=== PATIENT | female | born 1990 ===

== ENCOUNTER 2020-06-19 14:12 | Emergency (ER) | payer MEDICAID, SELFPAY ==
[2020-06-19 14:21] VITALS: BP 127/84; PULSE 83; RESP 16; TEMP 36.6; O2SAT 96; BMI 29.2
[2020-06-19 16:56] LABS: Glucose Urine UA NEG (NEG); Leukocyte Esterase Urine 2+ (NEG); Nitrite Urine POS (NEG); PH 6.5 (5.0-8.0); Specific Gravity - Urine >= 1.030 (1.005-1.025); UACC Culture Trigger YES; Urine Blood 3+ (NEG); Urine Ketones 5 MG/DL (NEG); Urine Protein 2+ MG/DL (NEG-TRACE)
[2020-06-19 16:57] VITALS: BP 105/70; PULSE 72; RESP 17; TEMP 36.4; O2SAT 99
[2020-06-19 16:57] LABS: Appearance Urine CLOUDY; Color Urine BROWN
--- NOTE | 2020-06-19 17:00 | ED.GENADULT ---
HPI - General Adult General Chief complaint: Abdominal Pain Stated complaint: bladder pain Time Seen by Provider: 06/19/20 16:56 Source: patient Mode of arrival: ambulatory Limitations: no limitations History of Present Illness HPI narrative: Patient comes emergency room complaining of dysuria. Patient states every time she urinates, it kincaid. Patient denies fever, no flank pain, the pain is a burning sensation, nonradiating. Patient denies vomiting or diarrhea. Patient states she has had UTIs in the past and feels very similar. Patient states she is not sure if she has hematuria, however patient is on her menstrual period. MD complaint: Dysuria Related Data Previous Rx's Medication Instructions Recorded nitrofurantoin monohyd/m-cryst 100 mg PO BID #14 cap 06/19/20 [Macrobid] phenazopyridine 100 mg PO TID 5 Days #15 tab 06/19/20 Allergies Allergy/AdvReac Type Severity Reaction Status Date / Time No Known Allergies Allergy Unverified 01/25/20 16:25 Review of Systems Review of Systems: Constitutional : No Weight loss, No Fever, No Chills, No Night Sweats, No Fatigue, No Malaise ENT/Mouth : No Hearing loss, No Ear Pain, No Nasal Congestion, No Sinus Pain, No Hoarseness, No sore throat, No Rhinorrhea, No Swallowing Difficulty Eyes: No Eye Pain, No Swelling, No Redness, No Foreign Body, No Discharge, No Vision Changes Cardiovascular : No Chest Pain, No SOB, No Dyspnea on Exertion, No Orthopnea, No Edema, No Palpitations Respiratory : No Cough, No Sputum, No Wheezing, No Smoke Exposure, No Dyspnea Gastrointestinal : No Nausea, No Vomiting, No Diarrhea, No Constipation, No abdominal Pain, No Hematochezia, No Melena Genitourinary : Currently menstruating, complaining of dysuria, unknown hematuria Musculoskeletal : No joint pain, No Myalgias, No Joint Swelling Skin : No Skin Lesions, No rash Neuro : No Weakness, No Numbness, No Paresthesias, No Loss of Consciousness, No Dizziness, No Headache Psych : No Anxiety/Panic, No Depression, No SI/HI/AH/VH, No Social Issues, Heme/Lymph: No Bruising, No Bleeding,No Lymphadenopathy Endocrine : No Polyuria, No Polydipsia, No Temperature Intolerance [facility] Past Medical History Medical History No known health problems Social History Social History Alcohol intake: never Smoking Status: Never smoker Use of substances other than those prescribed or required for medical reasons: No Advance Directives: No Advance Directives Information Provided: Yes Physical Exam Vital Signs: Vital Signs: Last Vital Signs Temp 97.6 F 06/19/20 16:57 Pulse 72 06/19/20 16:57 Resp 17 06/19/20 16:57 BP 105/70 06/19/20 16:57 Pulse Ox 99 06/19/20 16:57 Body Mass Index 29.2 Appearance: Alert. Oriented X3. No acute distress. Eyes: Pupils equal, round and reactive to light. ENT: Pharynx normal. Neck: Normal inspection. Neck supple. No lymph nodes noted. No crepitus CVS: Normal heart rate and rhythm. Pulses normal. Normal S1 and S2 Respiratory: No respiratory distress. Breath sounds normal. No Wheezing. No rales Abdomen: Soft and nontender. No rigidity. No distention. good BS x4 Skin: Skin warm and dry. Normal skin color. Normal skin turgor. Extremities: No lower extremity edema. No lower extremity edema. No Lacerations. No Rash Neuro: Oriented X 3. No motor deficit. No sensory deficit. Moving all extermities. No slurred speech. Course Course Course Narrative: Patient has a UTI, patient states she has no allergies to antibiotics. sepsis is not suspected. Medical Decision Making Lab Data Labs: Lab Results 06/19/20 Range/Units 16:43 Urine Color BROWN Urine Appearance CLOUDY Urine pH 6.5 (5.0-8.0) Ur Specific [place] >= 1.030 H (1.005-1.025) Urine Protein 2+ H (NEG-TRACE) MG/DL Urine Glucose (UA) NEG (NEG) MG/DL Urine Ketones 5 (NEG) MG/DL Urine Blood 3+ H (NEG) Urine Nitrite POS H (NEG) Ur Leukocyte Esterase 2+ H (NEG) Urine RBC 76-150 H (0) /HPF Urine WBC 15-29 H (0-4) /HPF Ur Squamous Epith Cells 1+ /LPF Urine Bacteria 2+ /LPF Discharge Plan Discharge Clinical Impression: UTI (urinary tract infection) Qualifiers: Urinary tract infection type: site unspecified Hematuria presence: without hematuria Qualified Code(s): N39.0 - Urinary tract infection, site not specified Patient Disposition: Home, Self-Care Instructions: Urinary Tract Infection in Women (ED) Additional Instructions: Please follow-up with your primary care physician tomorrow. If you have any worsening or new symptoms, please return to the emergency room or call 911 Prescriptions: New nitrofurantoin monohyd/m-cryst [Macrobid] 100 mg capsule 100 mg PO BID Qty: 14 RF: 0 phenazopyridine 100 mg tablet 100 mg PO TID 5 Days Qty: 15 RF: 0
[2020-06-19 17:03] LABS: Bacteria Urine 2+ /LPF; Squamous Epithelial Cell Urine 1+ /LPF
--- NOTE | 2020-06-19 17:16 | PC.NURSE ---
patient a&ox3, urine obtained, vss, will continue to monitor.
[2020-06-19 17:59] LABS: UPreg QC Valid YES; Urine Pregnancy NEGATIVE (NEGATIVE)
== END 2020-06-19 17:39 | disposition home or self-care (01) ==
PROVIDERS: Emergency Provider Emergency Medicine
DX: N39.0 Urinary tract infection, site not specified (principal); Z87.440 Personal history of urinary (tract) infections
CPT/HCPCS: 81001; 81003; 81025; 87086; 87088; 87186; 99283; 99284

== ENCOUNTER 2020-09-26 17:09 | Emergency (ER) | payer MEDICAID, SELFPAY ==
[2020-09-26 17:16] VITALS: BP 119/79; PULSE 88; RESP 18; TEMP 36.9; O2SAT 97; BMI 29.9
[2020-09-26 18:14] LABS: Glucose Urine UA NEG (NEG); Leukocyte Esterase Urine 2+ (NEG); Nitrite Urine NEG (NEG); Specific Gravity - Urine >= 1.030 (1.005-1.025); UACC Culture Trigger YES; Urine Blood 1+ (NEG); Urine Ketones NEG (NEG); Urine Protein NEG (NEG-TRACE)
[2020-09-26 18:15] LABS: Appearance Urine HAZY; Color Urine YELLOW
[2020-09-26 18:22] LABS: Bacteria Urine 1+ /LPF; RBC Urine 0-2 /HPF (0); Squamous Epithelial Cell Urine 2+ /LPF
--- NOTE | 2020-09-26 19:15 | ED_ITS ---
HPI - Female Genitourinary General Chief complaint: Urogenital-Female Stated complaint: ?UTI Time Seen by Provider: 09/26/20 18:55 Source: patient Mode of arrival: ambulatory Limitations: no limitations History of Present Illness HPI Narrative: 29-year-old female here with dysuria, frequency x4 days. No fevers, chills, nausea, vomiting, vaginal discharge Related Data Previous Rx's Medication Instructions Recorded nitrofurantoin monohyd/m-cryst 100 mg PO BID #14 cap 06/19/20 [Macrobid] phenazopyridine 100 mg PO TID 5 Days #15 tab 06/19/20 nitrofurantoin monohyd/m-cryst 100 mg PO Q12H 7 Days #14 cap 09/26/20 [Macrobid] phenazopyridine [Pyridium] 200 mg PO TID PRN #6 tab 09/26/20 Allergies Allergy/AdvReac Type Severity Reaction Status Date / Time No Known Allergies Allergy Unverified 01/25/20 16:25 Review of Systems Review of Systems: Yes all other systems are reviewed and are negative Constitutional: Constitutional: Reports no additional constitutional complaints, Denies body ache(s), Denies chills, Denies fever(s), Denies headache(s) and Denies weakness Eyes: Eyes: Reports no additional eye complaints and Denies change in vision ENT: Reports system reviewed and no additional complaints, except as documented, Denies dizziness, Denies headache(s), Denies nasal congestion, Denies nasal discharge and Denies neck pain Cardiovascular: Cardiovascular: Reports no additional cardiovascular complaints, Denies chest pain, Denies leg edema and Denies dyspnea Respiratory: Respiratory: Reports no additional respiratory complaints, Denies cough and Denies dyspnea Gastrointestinal: Gastrointestinal: Reports no additional gastrointestinal complaints, Denies abdominal pain, Denies diarrhea, Denies nausea and Denies vomiting Genitourinary: Genitourinary: Reports no additional female genitourinary complaints, Reports dysuria, Denies flank pain, Denies urinary incontinence, Denies urinary hesitancy, Reports urinary urgency and Denies vaginal discharge Musculoskeletal: Musculoskeletal: Reports no additional musculoskeletal complaints, Denies back pain, Denies arthralgias, Denies joint swelling, Denies neck pain, Denies numbness and Denies tingling Integumentary/Breasts: Skin/Breast: Reports system reviewed and no additional complaints, except as docu and Denies rash Neurologic: Reports system reviewed and no additional complaints, except as documented, Denies Abnormal speech present, Denies dizziness, Denies headache(s), Denies numbness, Denies tingling and Denies weakness PMFSH Past Medical History Attestation statement: The following information was validated with the patient. Source: old records reviewed and nursing notes reviewed Medical History No known health problems Social History Social History Alcohol intake: never Smoking Status: Never smoker Advance Directives: No Advance Directives Information Provided: No Patient : No Physical Exam Vital Signs: Vital Signs: Last Vital Signs Temp 98.4 F 09/26/20 17:16 Pulse 88 09/26/20 17:16 Resp 18 09/26/20 17:16 BP 119/79 09/26/20 17:16 Pulse Ox 97 09/26/20 17:16 Body Mass Index 29.9 Const: General: cooperative, healthy appearing, comfortable and no acute distress Orientation/consciousness: patient oriented x3 Limitations: no limitations HENMT: Head: Yes normal to inspection Ears: hearing grossly normal bilaterally General nose exam: Normal external nose present Face and sinus: Yes normal facial exam Mouth: Normal oral and palatal mucosa present Throat: Yes posterior oropharynx normal Eyes: General: appearance normal, both eyes and all related structures Pup ils: Equal, round and reactive pupils present Neck: Neck: Yes normal visual inspection Chest: Chest palpation & inspection: normal inspection of the chest Resp: Effort & Inspection: normal respiratory effort Auscultation: clear to auscultation bilaterally Cardio: Rate: regular rate Rhythm: regular rhythm Peripheral pulses: Peripheral pulses 2+ throughout GI: Inspection: Yes normal to inspection Palpation (GI): Soft to palpation and nontender Auscultation: normal bowel sounds : General: Yes no CVA tenderness Back/Spine/Pelvis: Back: no CVA tenderness Thoracic/Lumbar Spine: thoracic and lumbar spine normal to inspection Skin: General skin exam: no rashes or lesions noted Neuro: General: patient oriented x3, no focal motor deficits and normal sensation to monofilament Cranial nerves: Yes Equal, round and reactive pupils present Cognition (Neuro): normal cognition Speech: No Abnormal speech present Gait exam (Neuro): Normal gait present Motor exam (neuro): 5/5 motor strength present throughout Extrem: General: Yes normal to inspection Course Course Course Narrative: 29-year-old female here with frequency, urgency, dysuria times several days. UA is consistent with UTI. Will treat with course of antibiotics. Reviewed worrisome signs and symptoms of when to return to the emergency department. Comfortable with discharge home. MDM - Female Genitourinary Lab Data Labs: Lab Results 09/26/20 Range/Units 17:59 Urine Color YELLOW Urine Appearance HAZY Urine pH 6.0 (5.0-8.0) Ur Specific [place] >= 1.030 H (1.005-1.025) Urine Protein NEG (NEG-TRACE) MG/DL Urine Glucose (UA) NEG (NEG) MG/DL Urine Ketones NEG (NEG) MG/DL Urine Blood 1+ H (NEG) Urine Nitrite NEG (NEG) Ur Leukocyte Esterase 2+ H (NEG) Urine RBC 0-2 (0) /HPF Urine WBC 1-4 (0-4) /HPF Ur Squamous Epith Cells 2+ /LPF Urine Bacteria 1+ /LPF Discharge Plan Discharge Clinical Impression: Urinary tract infection Patient Disposition: Home, Self-Care Instructions: Urinary Tract Infection in Women (ED) Prescriptions: New nitrofurantoin monohyd/m-cryst [Macrobid] 100 mg capsule 100 mg PO Q12H 7 Days Qty: 14 RF: 0 phenazopyridine [Pyridium] 200 mg tablet 200 mg PO TID PRN (Reason: pain) Qty: 6 RF: 0 No Action nitrofurantoin monohyd/m-cryst [Macrobid] 100 mg capsule 100 mg PO BID Qty: 14 RF: 0 phenazopyridine 100 mg tablet 100 mg PO TID 5 Days Qty: 15 RF: 0 Referrals: Physician,Unknown [Primary Care Provider] - 2 days Interventions: ED Discharge Assessment Last Done: 09/26/20 19:08 Discharge Date/Time: 09/26/20 19:09
== END 2020-09-26 19:09 | disposition home or self-care (01) ==
PROVIDERS: Emergency Provider Emergency Medicine Emergency Medical Services
DX: N39.0 Urinary tract infection, site not specified (principal)
CPT/HCPCS: 81001; 81003; 87086; 87088; 87147; 87186; 99283

== ENCOUNTER 2020-12-22 11:49 | Emergency (ER) | payer MEDICAID, SELFPAY ==
--- NOTE | ~2020-12-22 | XR_ITS ---
EXAMINATION: XR CHEST CLINICAL INFORMATION: Covid Positive and cough COMPARISON: None TECHNIQUE: Frontal view of the chest was obtained. FINDINGS: No significant abnormality is noted involving the heart, lungs, mediastinum, bony thorax or soft tissues. XR/XR chest 1V IMPRESSION: Unremarkable chest examination.
[2020-12-22 12:04] VITALS: BP 117/80; PULSE 84; RESP 20; TEMP 37.3; O2SAT 99; BMI 30.1
[2020-12-22 12:21] LABS: COVID-19 Test Positive (Negative)
--- NOTE | 2020-12-22 14:17 | ED_ITS ---
HPI - URI/Sore Throat General Chief Complaint: Upper Respiratory Symptoms Stated Complaint: back pain chest pain Time Seen by Provider: 12/22/20 13:30 Source: patient Mode of arrival: ambulatory History of Present Illness HPI Narrative: 30-year-old female with no significant past medical history presenting presenting to the ED complaining of productive cough, myalgias, headache x2 days. Denies fever, chills, CP/SOB, recent travel, sick contacts, COVID-19 exposure MD elicited complaint: cough Related Data Previous Rx's Medication Instructions Recorded nitrofurantoin 100 mg PO BID #14 cap 06/19/20 monohydrate/macrocrystals 100 mg capsule (Macrobid) phenazopyridine 100 mg tablet 100 mg PO TID 5 Days #15 tab 06/19/20 nitrofurantoin 100 mg PO Q12H 7 Days #14 cap 09/26/20 monohydrate/macrocrystals 100 mg capsule (Macrobid) phenazopyridine 200 mg tablet 200 mg PO TID PRN #6 tab 09/26/20 (Pyridium) benzonatate 100 mg capsule 100 mg PO TID PRN #14 cap 12/22/20 (Tessalon Perles) Allergies Allergy/AdvReac Type Severity Reaction Status Date / Time No Known Allergies Allergy Verified 12/22/20 12:04 Review of Systems Review of Systems: Constitutional: No Fever, No Chills ENT/Mouth: No Ear Pain, No Nasal Congestion, No sore throat, No Rhinorrhea, No Swallowing Difficulty Cardiovascular: No Chest Pain, No SOB Respiratory: + Cough, + Sputum, No Wheezing Gastrointestinal: No Nausea, No Vomiting, No Abdominal pain Musculoskeletal: No joint pain, + Myalgias, No Joint Swelling Skin: No Skin Lesions, No rash Neuro: No Weakness, +headache Yes all other systems are reviewed and are ne [facility] Past Medical History Attestation statement: The following information was validated with the patient. Medical History No known health problems Social History Social History Alcohol intake: never Advance Directives: No Advance Directives Information Provided: Yes Patient : No Physical Exam Vital Signs: Vital Signs: Last Vital Signs Temp 99.1 F 12/22/20 12:04 Pulse 84 12/22/20 12:04 Resp 20 12/22/20 12:04 BP 117/80 12/22/20 12:04 Pulse Ox 99 12/22/20 12:04 Body Mass Index 30.1 Const: General: cooperative and healthy appearing Orientation/consciousness: patient oriented x3 Limitations: no limitations HENMT: Head: Yes normal to inspection Ears: hearing grossly normal bilaterally General nose exam: Normal external nose present Face and sinus: Yes normal facial exam Eyes: General: appearance normal, both eyes and all related structures EOM: EOMs intact bilaterally Neck: Neck: Yes normal visual inspection Resp: Effort & Inspection: normal respiratory effort Auscultation: clear to auscultation bilaterally, no rales, no rhonchi and no wheezes Cardio: Rate: regular rate Heart sounds: S1 normal heart sound present and S2 normal heart sound present GI: Inspection: Yes normal to inspection Skin: Rashes: no rashes Wounds: no wounds Neuro: General: patient oriented x3 Gait exam (Neuro): Normal gait present Extrem: General: Yes normal to inspection, Yes no pedal edema and Yes no calf tenderness Course Course Course Narrative: -patient is COVID-19 positive XR chest 1V IMPRESSION: Unremarkable chest examination. >> results discussed with patient including worrisome signs and symptoms and strict return precautions, she verbalized understanding feel safe for discharge home MDM - URI/Sore Throat MDM Narrative Medical decision making narrative: 30-year-old female with no significant past medical history presenting presenting to the ED complaining of productive cough, myalgias, headache x2 days. On exam VSS, NAD/nontoxic appearing, lungs CTA, no pedal edema/calf tenderness. Concern for COVID-19/viral syndrome. Rule out pneumonia. Low concern for PE/ACS Plan: COVID-19 testing, CXR Lab Data Labs: Lab Results 12/22/20 Range/Units 12:09 COVID-19 (VIVIAN) Positive A (Negative) COVID-19 Clin Com See Note Discharge Plan Discharge Clinical Impression: COVID-19 Patient Disposition: Home, Self-Care Instructions: COVID-19 (Coronavirus Disease 2019) (ED) Additional Instructions: You have COVID-19. Your x-ray was unremarkable You need to self isolate for 10-14 days Take Tylenol and Motrin at home for fever/body aches Make sure you are drinking plenty of fluids You should buy a pulse oximeter to monitor your oxygen at home, if her oxygen is in the low 90s or dropping below 90 return to the ED me If you develop constant worsening shortness breath or chest pain, fever unresolved Tylenol or Motrin please return to the ED Tessalon Perles are for cough, take as needed CDC Guidelines for home isolation: - Stay away from others - WEAR A MASK if you are sick AND STAY HOME - Cover your mouth and nose with a tissue when you cough or sneeze. Dispose of tissues in a lined trash can and wash your hands immediately with soap and water for at least 20 seconds. If soap and water are not available, clean hands with alcohol-based hand mitten sewer that contains at least 60% alcohol. - Clean your hands often with soap and water for at least 20 seconds - Avoid touching your eyes, nose and mouth with unwashed hands - Do not share dishes, drinking glasses, cups, eating utensils, towels, or bedding with other people in your home. After using these items, wash them thoroughly with soap and water or put in the insurance solicitor. - Clean high-touch surfaces in your isolation area ( sick room and bathroom) every day; let a caregiver clean and disinfect high-touch surfaces in other areas of the home. Clean the area or item with soap and water or another detergent if it is dirty. Then, use a household disinfectant. - Limit contact with pets and animals: If you must care for a pet, wash your hands before and after interacting with them) Prescriptions: New benzonatate [Tessalon Perles] 100 mg capsule 100 mg PO TID PRN (Reason: cough) Qty: 14 RF: 0 No Action nitrofurantoin monohyd/m-cryst [Macrobid] 100 mg capsule 100 mg PO BID Qty: 14 RF: 0 phenazopyridine 100 mg tablet 100 mg PO TID 5 Days Qty: 15 RF: 0 nitrofurantoin monohyd/m-cryst [Macrobid] 100 mg capsule 100 mg PO Q12H 7 Days Qty: 14 RF: 0 phenazopyridine [Pyridium] 200 mg tablet 200 mg PO TID PRN (Reason: pain) Qty: 6 RF: 0 Referrals: Physician,Unknown [Primary Care Provider] - 1 week (as needed) Stand Alone Forms: Work/School Release
== END 2020-12-22 14:52 | disposition home or self-care (01) ==
PROVIDERS: Emergency Provider Emergency Medicine
DX: U07.1 COVID-19 (principal); R05 Cough; M79.10 Myalgia, unspecified site; R51.9 Headache, unspecified; Z79.899 Other long term (current) drug therapy
CPT/HCPCS: 36415; 71045; 87635; 99283

== ENCOUNTER 2021-01-27 09:16 | Emergency (ER) | payer MEDICAID, SELFPAY ==
--- NOTE | ~2021-01-27 | US_ITS ---
EXAMINATION: US PELVIS CLINICAL INFORMATION: Discharge and bilateral adnexal tenderness. Rule out tubo-ovarian abscess versus cyst COMPARISON: Previous pelvic ultrasound December [address] of the abdomen and pelvis December 2018 TECHNIQUE: Ultrasound of the pelvis is performed using both transabdominal and transvaginal transducers along with Doppler. Transvaginal imaging is performed due to inadequate visualization transabdominally. FINDINGS: The uterus is anteverted and measures 4.8 x 2.5 x 4.1 cm in dimension. No focal uterine lesion is seen. Endometrial thickness is normal measuring 0.6 cm. There are nabothian cysts in the cervix. The ovaries are normal-appearing. The right ovary measures 4.3 x 2.1 x 2.4 cm. The left ovary measures 2.4 x 1.9 x 2.2 cm. No adnexal mass or cyst is seen. Doppler and color flow is documented to both ovaries. There is no evidence of torsion. There is no fluid in the pelvis. US/US pelvic and transvaginal IMPRESSION: Unremarkable exam.
[2021-01-27 09:30] VITALS: BP 122/81; PULSE 76; RESP 16; TEMP 36.9; O2SAT 98; BMI 28.3
[2021-01-27 10:31] LABS: Appearance Urine HAZY; Color Urine YELLOW; Glucose Urine UA NEG (NEG); Leukocyte Esterase Urine NEG (NEG); Nitrite Urine NEG (NEG); Specific Gravity - Urine >= 1.030 (1.005-1.025); UACC Culture Trigger NO; Urine Blood TRACE (NEG); Urine Ketones NEG (NEG); Urine Protein TRACE MG/DL (NEG-TRACE)
[2021-01-27 10:41] LABS: RBC Urine 0-2 /HPF (0); WBC Urine 0-2 /HPF (0-4)
[2021-01-27 10:42] LABS: Mucus Urine TRACE /LPF; Squamous Epithelial Cell Urine 4+ /LPF
[2021-01-27 10:43] VITALS: BP 122/74; PULSE 79; RESP 16; TEMP 37; O2SAT 98
--- NOTE | 2021-01-27 11:12 | ED.FEMALEGU ---
HPI - Female Genitourinary General Chief complaint: Urogenital-Female <MICHELLE Naranjo - Last Filed: 01/27/21 14:38> Stated complaint: ?uti <MICHELLE Naranjo - Last Filed: 01/27/21 14:38> Time Seen by Provider: 01/27/21 10:35 <MICHELLE Naranjo - Last Filed: 01/27/21 14:38> Source: patient <MICHELLE Naranjo - Last Filed: 01/27/21 14:38> Mode of arrival: ambulatory <MICHELLE Naranjo - Last Filed: 01/27/21 14:38> History of Present Illness HPI Narrative: 30-year-old female with no significant past medical history presenting to the ED complaining of lower abdominal/pelvic discomfort and dysuria x3 days. Also reports yellow vaginal discharge. Patient is sexually active with 1 partner, denies history or concern for STIs. Denies nausea, vomiting, flank pain, urinary frequency, hematuria, vaginal bleeding <MICHELLE Naranjo - Last Filed: 01/27/21 14:38> Related Data Home medications: Previous Rx's Medication Instructions Recorded nitrofurantoin 100 mg PO BID #14 cap 06/19/20 monohydrate/macrocrystals 100 mg capsule (Macrobid) phenazopyridine 100 mg tablet 100 mg PO TID 5 Days #15 tab 06/19/20 nitrofurantoin 100 mg PO Q12H 7 Days #14 cap 09/26/20 monohydrate/macrocrystals 100 mg capsule (Macrobid) phenazopyridine 200 mg tablet 200 mg PO TID PRN #6 tab 09/26/20 (Pyridium) benzonatate 100 mg capsule 100 mg PO TID PRN #14 cap 12/22/20 (Tessalon Perles) fluconazole 150 mg tablet 150 mg PO Q3D 1 Days #1 tab 01/27/21 (Diflucan) metronidazole 500 mg tablet 500 mg PO BID 7 Days #14 tab 01/30/21 (Flagyl) <MICHELLE Naranjo - Last Filed: 01/27/21 14:38> Allergies/Adverse reactions: Allergies Allergy/AdvReac Type Severity Reaction Status Date / Time No Known Allergies Allergy Verified 12/22/20 12:04 <MICHELLE Naranjo - Last Filed: 01/27/21 14:38> Review of Systems Review of Systems: Constitutional: No Fever, No Chills, No Fatigue, No Malaise ENT/Mouth: No Ear Pain, No Nasal Congestion, No sore throat, No Rhinorrhea Eyes: No Eye Pain, No Discharge, No Vision Changes Cardiovascular: No Chest Pain, No SOB, No Palpitations Respiratory: No Cough, No Dyspnea Gastrointestinal: No Nausea, No Vomiting, No Diarrhea, No Constipation, +Pelvic/Abdominal pain Genitourinary: No irregular bleeding, + Dysuria, No Urinary Frequency, No Hematuria,No Urgency, No Flank Pain Musculoskeletal: No joint pain, No Myalgias, No Joint Swelling Skin: No Skin Lesions, No rash Neuro: No Weakness, No Numbness,No Loss of Consciousness, No Headache <MICHELLE Naranjo - Last Filed: 01/27/21 14:38> Yes all other systems are reviewed and are negative <MICHELLE Naranjo - Last Filed: 01/27/21 14:38> [facility] Past Medical History Attestation statement: The following information was validated with the patient. <MICHELLE Naranjo - Last Filed: 01/27/21 14:38> Medical History: Medical History No known health problems <MICHELLE Naranjo - Last Filed: 01/27/21 14:38> Social History Social History: Social History Alcohol intake: never Advance Directives: No Advance Directives Information Provided: No Patient : No <MICHELLE Naranjo - Last Filed: 01/27/21 14:38> Physical Exam Vital Signs: Vital Signs: Last Vital Signs Temp 98.6 F 01/27/21 10:43 Pulse 79 01/27/21 10:43 Resp 16 01/27/21 10:43 BP 122/74 01/27/21 10:43 Pulse Ox 98 01/27/21 10:43 Body Mass Index 28.3 <MICHELLE Naranjo Last Filed: 01/27/21 14:38> Vital Signs: Last Vital Signs Temp 98.6 F 01/27/21 10:43 Pulse 79 01/27/21 10:43 Resp 16 01/27/21 10:43 BP 122/74 01/27/21 10:43 Pulse Ox 98 01/27/21 10:43 Body Mass Index 28.3 <Chandrika Sr ID - Last Filed: 01/30/21 15:11> Const: General: cooperative, healthy appearing and no acute distress <Sofía Madera ID - Last Filed: 01/27/21 14:38> Orientation/consciousness: patient oriented x3 <Sofía Madera ID - Last Filed: 01/27/21 14:38> Limitations: no limitations <Sofía Madera ID - Last Filed: 01/27/21 14:38> HENMT: Head: Yes normal to inspection <Sofía Madera ID - Last Filed: 01/27/21 14:38> Ears: hearing grossly normal bilaterally <Sofía Madera ID - Last Filed: 01/27/21 14:38> General nose exam: Normal external nose present <Sofía Madera ID - Last Filed: 01/27/21 14:38> Face and sinus: Yes normal facial exam <Sofía Madera [facility] Last Filed: 01/27/21 14:38> Eyes: General: appearance normal, both eyes and all related structures <Sofía Madera ID - Last Filed: 01/27/21 14:38> EOM: EOMs intact bilaterally <Sofía Madera ID - Last Filed: 01/27/21 14:38> Neck: Neck: Yes normal visual inspection <Sofía Madera ID - Last Filed: 01/27/21 14:38> Resp: Effort & Inspection: normal respiratory effort and no respiratory distress <Sofía Madera ID - Last Filed: 01/27/21 14:38> Cardio: Rate: regular rate <Sofía Madera ID - Last Filed: 01/27/21 14:38> GI: Inspection: Yes normal to inspection <Sofía Madera [facility] Last Filed: 01/27/21 14:38> Palpation (GI): Soft to palpation, nontender, no guarding and not rigid <Sofía Madera ID - Last Filed: 01/27/21 14:38> : Other: + mild white thick vaginal discharge noted. Bilateral adnexal tenderness. No CMT. No masses. No bleeding. <Sofíamelody Madera PA - Last Filed: 01/27/21 14:38> General: Yes no CVA tenderness <Sofíamelody Madera PA - Last Filed: 01/27/21 14:38> Speculum Exam - Vagina: No vaginal bleeding <Sofíamelody Madera PA - Last Filed: 01/27/21 14:38> Speculum Exam - Cervix: nontender <Sofíamelody Madera PA - Last Filed: 01/27/21 14:38> Bimanual exam- vagina & uterus: No Cervical tenderness present <Sofíamelody Madera PA - Last Filed: 01/27/21 14:38> Bimanual Exam- Adnexa, other: tender bilaterally and no masses noted <Sofíamelody Madera PA - Last Filed: 01/27/21 14:38> OB/external & speculum: No vaginal bleeding <Sofía Madera PA - Last Filed: 01/27/21 14:38> Back/Spine/Pelvis: Back: no CVA tenderness <Sofíamelody Madera PA - Last Filed: 01/27/21 14:38> Skin: Rashes: no rashes <Sofía Madear PA - Last Filed: 01/27/21 14:38> Wounds: no wounds <Sofíamelody Madera ID - Last Filed: 01/27/21 14:38> Neuro: General: patient oriented x3 <Sofía Madera ID - Last Filed: 01/27/21 14:38> Gait exam (Neuro): Normal gait present <Sofía Madera PA - Last Filed: 01/27/21 14:38> Extrem: General: Yes normal to inspection <Sofía Madera PA - Last Filed: 01/27/21 14:38> Course Course Course Narrative: -UA unremarkable. Urine negative. > pelvic exam consistent with candidiasis, patient given p.o. dose of Diflucan in the ED, recommended empiric treatment of STI's however patient would like to refrain from STI treatment until cultures result. -1439--labs unremarkable. Gonorrhea/chlamydia negative. US pelvic and transvaginal IMPRESSION: Unremarkable exam. > results discussed with patient including worrisome signs and symptoms and strict return precautions, she verbalized understanding feel safe discharge home <MICHELLE Naranjo - Last Filed: 01/27/21 14:38> MDM - Female Genitourinary MDM Narrative Medical decision making narrative: 30-year-old female with no significant PMHx presenting to the ED complaining of lower abdominal/pelvic discomfort and dysuria x3 days. Also reports yellow vaginal discharge. On exam VS, NAD/nontoxic, abdomen soft/nontender, no CVAT. White vaginal discharge noted on exam with bilateral adnexal tenderness, no CMT. Concern for yeast infection vs STI vs ?TOA vs ovarian cyst. Low concern for ovarian torsion or PID. No concern for appendicitis/diverticulitis as patient is not tender transabdominally on exam. Low concern for renal stone Patient is not agreeable to empiric STI treatment in the ED other than treatment with p.o. Diflucan Plan: Labs, UA, STI testing, pelvic ultrasound <MICHELLE Naranjo - Last Filed: 01/27/21 14:38> Medical Records Attestation: I reviewed the patient's medical records. <MICHELLE Naranjo - Last Filed: 01/27/21 14:38> Lab Data Attestation: I reviewed the patient's lab results. <MICHELLE Naranjo - Last Filed: 01/27/21 14:38> Result diagrams: : 01/27/21 13:13 01/27/21 13:13 <MICHELLE Naranjo - Last Filed: 01/27/21 14:38> Labs: Lab Results 01/27/21 01/27/21 01/27/21 Range/Units 10:13 11:00 11:00 WBC (4.8-10.8) X10*3/uL RBC (4.20-5.50) X10*6/uL Hgb (12.0-16.0) g/dl Hct (37-47) % MCV (80-98) fL MCH (27.0-33.0) pg MCHC (31.0-35.0) g/dl RDW (11.0-16.0) % Plt Count (160-400) X10*3/uL MPV (9.4-12.3) fL Immature Gran % (Auto) (0.0-0.4) % Neut % (Auto) (45-73) % Lymph % (Auto) (20-40) % Hart % (Auto) (2-11) % Eos % (Auto) (0-4) % Baso % (Auto) (0-2) % Lymph # (Auto) (1.2-4.9) X10*3/uL Hart # (Auto) (0.1-1.2) X10*3/uL Eos # (Auto) (0.0-0.4) X10*3/uL Baso # (Auto) (0.0-0.2) X10*3/uL Abs Immat Gran (auto) (0.00-0.03) X10*3/uL Absolute Neuts (auto) (2.0-8.3) X10*3/uL Absolute Nucleated RBC (0.0-0.012) X10*3/uL Nucleated RBC % (auto) (0.0-0.2) /100WBC Sodium (135-145) mmol/L Potassium (3.3-5.1) mmol/L Chloride (96-108) mmol/L Carbon Dioxide (22-29) mmol/L Anion Gap (12-20) BUN (9-16) mg/dL Creatinine (0.5-1.4) mg/dL Estim Creat Clear Calc Estimated GFR Random Glucose (60-115) mg/dL Calcium (8.4-10.2) mg/dL Total Bilirubin (0.0-1.0) mg/dL Direct Bilirubin (0.0-0.5) mg/dL AST (5-31) U/L ALT (0-31) U/L Alkaline Phosphatase (39-117) U/L Total Protein (6.5-8.0) g/dL Albumin (3.5-5.0) g/dL Lipase (8-78) U/L Urine Color YELLOW Urine Appearance HAZY Urine pH 6.0 (5.0-8.0) Ur Specific [place] >= 1.030 H (1.005-1.025) Urine Protein TRACE (NEG-TRACE) MG/DL Urine Glucose (UA) NEG (NEG) MG/DL Urine Ketones NEG (NEG) MG/DL Urine Blood TRACE (NEG) Urine Nitrite NEG (NEG) Ur Leukocyte Esterase NEG (NEG) Urine RBC 0-2 (0) /HPF Urine WBC 0-2 (0-4) /HPF Ur Squamous Epith Cells 4+ /LPF Urine Bacteria NONE /LPF Urine Mucus TRACE /LPF Urine Test (NEGATIVE) Tita species DNA Negative (Negative) Chlam trachomat DNA PCR NOT DETECTED (Not Detect.) Gardnerella DNA Probe Positive A (Negative) N.gonorrhoeae DNA (PCR) NOT DETECTED (Not Detect.) Trichomonas DNA Probe Negative (Negative) 01/27/21 01/27/21 01/27/21 Range/Units 11:10 13:13 13:13 WBC 9.3 (4.8-10.8) X10*3/uL RBC 4.91 (4.20-5.50) X10*6/uL Hgb 12.3 (12.0-16.0) g/dl Hct 37.8 (37-47) % MCV 77.0 L (80-98) fL MCH 25.1 L (27.0-33.0) pg MCHC 32.5 (31.0-35.0) g/dl RDW 14.3 (11.0-16.0) % Plt Count 353 (160-400) X10*3/uL MPV 9.5 (9.4-12.3) fL Immature Gran % (Auto) 0.2 (0.0-0.4) % Neut % (Auto) 66.6 (45-73) % Lymph % (Auto) 23.5 (20-40) % Hart % (Auto) 8.0 (2-11) % Eos % (Auto) 1.1 (0-4) % Baso % (Auto) 0.6 (0-2) % Lymph # (Auto) 2.2 (1.2-4.9) X10*3/uL Hart # (Auto) 0.8 (0.1-1.2) X10*3/uL Eos # (Auto) 0.1 (0.0-0.4) X10*3/uL Baso # (Auto) 0.1 (0.0-0.2) X10*3/uL Abs Immat Gran (auto) 0.02 (0.00-0.03) X10*3/uL Absolute Neuts (auto) 6.2 (2.0-8.3) X10*3/uL Absolute Nucleated RBC 0.000 (0.0-0.012) X10*3/uL Nucleated RBC % (auto) 0.0 (0.0-0.2) /100WBC Sodium 137 (135-145) mmol/L Potassium 3.7 (3.3-5.1) mmol/L Chloride 108 (96-108) mmol/L Carbon Dioxide 21 L (22-29) mmol/L Anion Gap 12 (12-20) BUN 13 (9-16) mg/dL Creatinine 0.71 (0.5-1.4) mg/dL Estim Creat Clear Calc 111.6 Estimated GFR > 60 Random Glucose 97 (60-115) mg/dL Calcium 8.9 (8.4-10.2) mg/dL Total Bilirubin 0.2 (0.0-1.0) mg/dL Direct Bilirubin < 0.2 (0.0-0.5) mg/dL AST 16 (5-31) U/L ALT 16 (0-31) U/L Alkaline Phosphatase 84 (39-117) U/L Total Protein 7.1 (6.5-8.0) g/dL Albumin 4.2 (3.5-5.0) g/dL Lipase 26 (8-78) U/L Urine Color Urine Appearance Urine pH (5.0-8.0) Ur Specific [place] (1.005-1.025) Urine Protein (NEG-TRACE) MG/DL Urine Glucose (UA) (NEG) MG/DL Urine Ketones (NEG) MG/DL Urine Blood (NEG) Urine Nitrite (NEG) Ur Leukocyte Esterase (NEG) Urine RBC (0) /HPF Urine WBC (0-4) /HPF Ur Squamous Epith Cells /LPF Urine Bacteria /LPF Urine Mucus /LPF Urine Test NEGATIVE (NEGATIVE) Tita species DNA (Negative) Chlam trachomat DNA PCR (Not Detect.) Gardnerella DNA Probe (Negative) N.gonorrhoeae DNA (PCR) (Not Detect.) Trichomonas DNA Probe (Negative) <MICHELLE Naranjo - Last Filed: 01/27/21 14:38> Lab Results 01/27/21 01/27/21 01/27/21 Range/Units 10:13 11:00 11:00 WBC (4.8-10.8) X10*3/uL RBC (4.20-5.50) X10*6/uL Hgb (12.0-16.0) g/dl Hct (37-47) % MCV (80-98) fL MCH (27.0-33.0) pg MCHC (31.0-35.0) g/dl RDW (11.0-16.0) % Plt Count (160-400) X10*3/uL MPV (9.4-12.3) fL Immature Gran % (Auto) (0.0-0.4) % Neut % (Auto) (45-73) % Lymph % (Auto) (20-40) % Hart % (Auto) (2-11) % Eos % (Auto) (0-4) % Baso % (Auto) (0-2) % Lymph # (Auto) (1.2-4.9) X10*3/uL Hart # (Auto) (0.1-1.2) X10*3/uL Eos # (Auto) (0.0-0.4) X10*3/uL Baso # (Auto) (0.0-0.2) X10*3/uL Abs Immat Gran (auto) (0.00-0.03) X10*3/uL Absolute Neuts (auto) (2.0-8.3) X10*3/uL Absolute Nucleated RBC (0.0-0.012) X10*3/uL Nucleated RBC % (auto) (0.0-0.2) /100WBC Sodium (135-145) mmol/L Potassium (3.3-5.1) mmol/L Chloride (96-108) mmol/L Carbon Dioxide (22-29) mmol/L Anion Gap (12-20) BUN (9-16) mg/dL Creatinine (0.5-1.4) mg/dL Estim Creat Clear Calc Estimated GFR Random Glucose (60-115) mg/dL Calcium (8.4-10.2) mg/dL Total Bilirubin (0.0-1.0) mg/dL Direct Bilirubin (0.0-0.5) mg/dL AST (5-31) U/L ALT (0-31) U/L Alkaline Phosphatase (39-117) U/L Total Protein (6.5-8.0) g/dL Albumin (3.5-5.0) g/dL Lipase (8-78) U/L Urine Color YELLOW Urine Appearance HAZY Urine pH 6.0 (5.0-8.0) Ur Specific [place] >= 1.030 H (1.005-1.025) Urine Protein TRACE (NEG-TRACE) MG/DL Urine Glucose (UA) NEG (NEG) MG/DL Urine Ketones NEG (NEG) MG/DL Urine Blood TRACE (NEG) Urine Nitrite NEG (NEG) Ur Leukocyte Esterase NEG (NEG) Urine RBC 0-2 (0) /HPF Urine WBC 0-2 (0-4) /HPF Ur Squamous Epith Cells 4+ /LPF Urine Bacteria NONE /LPF Urine Mucus TRACE /LPF Urine Test (NEGATIVE) Tita species DNA Negative (Negative) Chlam trachomat DNA PCR NOT DETECTED (Not Detect.) Gardnerella DNA Probe Positive A (Negative) N.gonorrhoeae DNA (PCR) NOT DETECTED (Not Detect.) Trichomonas DNA Probe Negative (Negative) 01/27/21 01/27/21 01/27/21 Range/Units 11:10 13:13 13:13 WBC 9.3 (4.8-10.8) X10*3/uL RBC 4.91 (4.20-5.50) X10*6/uL Hgb 12.3 (12.0-16.0) g/dl Hct 37.8 (37-47) % MCV 77.0 L (80-98) fL MCH 25.1 L (27.0-33.0) pg MCHC 32.5 (31.0-35.0) g/dl RDW 14.3 (11.0-16.0) % Plt Count 353 (160-400) X10*3/uL MPV 9.5 (9.4-12.3) fL Immature Gran % (Auto) 0.2 (0.0-0.4) % Neut % (Auto) 66.6 (45-73) % Lymph % (Auto) 23.5 (20-40) % Hart % (Auto) 8.0 (2-11) % Eos % (Auto) 1.1 (0-4) % Baso % (Auto) 0.6 (0-2) % Lymph # (Auto) 2.2 (1.2-4.9) X10*3/uL Hart # (Auto) 0.8 (0.1-1.2) X10*3/uL Eos # (Auto) 0.1 (0.0-0.4) X10*3/uL Baso # (Auto) 0.1 (0.0-0.2) X10*3/uL Abs Immat Gran (auto) 0.02 (0.00-0.03) X10*3/uL Absolute Neuts (auto) 6.2 (2.0-8.3) X10*3/uL Absolute Nucleated RBC 0.000 (0.0-0.012) X10*3/uL Nucleated RBC % (auto) 0.0 (0.0-0.2) /100WBC Sodium 137 (135-145) mmol/L Potassium 3.7 (3.3-5.1) mmol/L Chloride 108 (96-108) mmol/L Carbon Dioxide 21 L (22-29) mmol/L Anion Gap 12 (12-20) BUN 13 (9-16) mg/dL Creatinine 0.71 (0.5-1.4) mg/dL Estim Creat Clear Calc 111.6 Estimated GFR > 60 Random Glucose 97 (60-115) mg/dL Calcium 8.9 (8.4-10.2) mg/dL Total Bilirubin 0.2 (0.0-1.0) mg/dL Direct Bilirubin < 0.2 (0.0-0.5) mg/dL AST 16 (5-31) U/L ALT 16 (0-31) U/L Alkaline Phosphatase 84 (39-117) U/L Total Protein 7.1 (6.5-8.0) g/dL Albumin 4.2 (3.5-5.0) g/dL Lipase 26 (8-78) U/L Urine Color Urine Appearance Urine pH (5.0-8.0) Ur Specific [place] (1.005-1.025) Urine Protein (NEG-TRACE) MG/DL Urine Glucose (UA) (NEG) MG/DL Urine Ketones (NEG) MG/DL Urine Blood (NEG) Urine Nitrite (NEG) Ur Leukocyte Esterase (NEG) Urine RBC (0) /HPF Urine WBC (0-4) /HPF Ur Squamous Epith Cells /LPF Urine Bacteria /LPF Urine Mucus /LPF Urine Test NEGATIVE (NEGATIVE) Tita species DNA (Negative) Chlam trachomat DNA PCR (Not Detect.) Gardnerella DNA Probe (Negative) N.gonorrhoeae DNA (PCR) (Not Detect.) Trichomonas DNA Probe (Negative) <MICHELLE Vidal - Last Filed: 01/30/21 15:11> Discharge Plan Discharge Clinical Impression: Dysuria, Yeast infection, Bacterial vaginosis <MICHELLE Naranjo - Last Filed: 01/27/21 14:38> Patient Disposition: Home, Self-Care <MICHELLE Naranjo Last Filed: 01/27/21 14:38> Instructions: Yeast Infection (ED) <MICHELLE Naranjo - Last Filed: 01/27/21 14:38> Additional Instructions: You were treated for yeast infection today in the emergency department, an additional dose of the use infection treatment was sent to the pharmacy, take in 3 days if symptoms persist Your blood work and ultrasound were unremarkable. Your urine was not infected Your tested for sexually transmitted infections today, the results should be back in 48 hours, you will be contacted for positive results only Please refrain from any sexual contact until you know the results of her cultures Please follow-up with her OBGYN or [facility] for further STI testing If her symptoms persist or worsen, become unbearable please return to the ED <MICHELLE Naranjo - Last Filed: 01/27/21 14:38> Prescriptions: New fluconazole [Diflucan] 150 mg tablet 150 mg PO Q3D 1 Days Qty: 1 RF: 0 metronidazole [Flagyl] 500 mg tablet 500 mg PO BID 7 Days Qty: 14 RF: 0 No Action nitrofurantoin monohyd/m-cryst [Macrobid] 100 mg capsule 100 mg PO BID Qty: 14 RF: 0 phenazopyridine 100 mg tablet 100 mg PO TID 5 Days Qty: 15 RF: 0 nitrofurantoin monohyd/m-cryst [Macrobid] 100 mg capsule 100 mg PO Q12H 7 Days Qty: 14 RF: 0 phenazopyridine [Pyridium] 200 mg tablet 200 mg PO TID PRN (Reason: pain) Qty: 6 RF: 0 benzonatate [Tessalon Perles] 100 mg capsule 100 mg PO TID PRN (Reason: cough) Qty: 14 RF: 0 <MICHELLE Naranjo - Last Filed: 01/27/21 14:38> Referrals: [facility] [Primary Care Provider] - 2 days Adan Bal MD [Physician] - 2 days <MICHELLE Naranjo - Last Filed: 01/27/21 14:38> Interventions: ED Discharge Assessment Last Done: 01/27/21 15:34 <MICHELLE Naranjo - Last Filed: 01/27/21 14:38> Discharge Date/Time: 01/27/21 15:35 <MICHELLE Naranjo - Last Filed: 01/27/21 14:38>
[2021-01-27] MEDS: Fluconazole 150 MG TABLET PO (11:21)
[2021-01-27 11:29] LABS: UPreg QC Valid YES; Urine Pregnancy NEGATIVE (NEGATIVE)
[2021-01-27 12:47] LABS: CT PCR NOT DETECTED (Not Detect.); NG PCR NOT DETECTED (Not Detect.)
[2021-01-27 13:16] LABS: MANUAL DIFF FLAG NO
[2021-01-27 13:19] LABS: Basophils Absolute Auto 0.1 X10*3/uL (0.0-0.2); Basophils Percent Auto 0.6 % (0-2); Eosinophils Absolute Auto 0.1 X10*3/uL (0.0-0.4); Eosinophils Percent Auto 1.1 % (0-4); Hematocrit 37.8 % (37-47); Hemoglobin 12.3 g/dl (12.0-16.0); Imm Gran Abs Auto 0.02 X10*3/uL (0.00-0.03); Imm Gran Pct Auto 0.2 % (0.0-0.4); Lymphocytes Absolute Auto 2.2 X10*3/uL (1.2-4.9); Lymphocytes Percent Auto 23.5 % (20-40); Mean Corpuscular HGB Conc 32.5 g/dl (31.0-35.0); Mean Corpuscular Hemoglobin 25.1 pg (27.0-33.0); Mean Platelet Volume 9.5 fL (9.4-12.3); Monocytes Absolute Auto 0.8 X10*3/uL (0.1-1.2); Neutrophils Absolute Auto 6.2 X10*3/uL (2.0-8.3); Neutrophils Percent Auto 66.6 % (45-73); Platelet Count 353 X10*3/uL (160-400); Red Blood Count 4.91 X10*6/uL (4.20-5.50); Red Cell Distribution Width 14.3 % (11.0-16.0); White Blood Count 9.3 X10*3/uL (4.8-10.8)
[2021-01-27 13:34] LABS: Alanine Aminotransferase 16 U/L (0-31); Albumin Level 4.2 g/dL (3.5-5.0); Alkaline Phosphatase 84 U/L (39-117); Anion Gap 12 (12-20); Aspartate Amino Transferase 16 U/L (5-31); Bilirubin Direct < 0.2 mg/dL (0.0-0.5); Bilirubin Total 0.2 mg/dL (0.0-1.0); Blood Urea Nitrogen 13 mg/dL (9-16); Calcium 8.9 mg/dL (8.4-10.2); Carbon Dioxide 21 mmol/L (22-29); Chloride 108 mmol/L (96-108); Creatinine Clr Calc Pharmacy 111.6; Estimated Glomerular Filt Rate > 60; Glucose Random 97 mg/dL (60-115); Lipase 26 U/L (8-78); Potassium 3.7 mmol/L (3.3-5.1); Sodium 137 mmol/L (135-145); Total Protein 7.1 g/dL (6.5-8.0)
[2021-01-28 08:55] LABS: BV Int Neg Control Negative (Negative); BV Int Pos Control Positive (Positive)
== END 2021-01-27 15:35 | disposition home or self-care (01) ==
PROVIDERS: Physician Assistant; Emergency Provider Emergency Medicine Emergency Medical Services
DX: R30.0 Dysuria (principal); N76.0 Acute vaginitis; B37.9 Candidiasis, unspecified; R10.30 Lower abdominal pain, unspecified; Z79.899 Other long term (current) drug therapy
CPT/HCPCS: 36415; 76830; 76856; 80048; 80076; 81001; 81025; 83690; 85025; 87480; 87491; 87510; 87591; 87660; 99284

== ENCOUNTER 2021-05-30 17:50 | Emergency (ER) | payer MEDICAID, SELFPAY ==
[2021-05-30 18:03] VITALS: BP 136/86; PULSE 82; RESP 16; TEMP 36.9; BMI 28.3
[2021-05-30 18:57] LABS: COVID-19 Test Negative (Negative)
--- NOTE | 2021-05-30 19:22 | ED_ITS ---
HPI - General Adult General Chief complaint: Upper Respiratory Symptoms Stated complaint: fever,bodyaches,sob Time Seen by Provider: 05/30/21 19:22 Source: patient Mode of arrival: ambulatory Limitations: no limitations History of Present Illness HPI narrative: Patient is a 30 year old female presenting to the emergency department today with generalized body aches and feeling unwell. Patient states that for the last few days she has felt generally unwell, with body aches. Patient denies any dizziness, lightheadedness, abdominal pain, nausea, vomiting, fever, chills, blurry vision, double vision, loss of vision, chest pain, difficulty breathing, shortness of breath, back pain, night sweats, pain with urination, increased urinary frequency, increased urinary urgency, blood in her urine or stool, syncope or a near syncopal episode, recent trauma or falls, bowel incontinence, bladder incontinence, bowel retention, bladder retention, or any other complaints at this time. Onset (ago): day(s) Severity: mild Severity scale (1-10): 4 Relieving factors: none Exacerbating factors: none Related Data Previous Rx's Medication Instructions Recorded nitrofurantoin 100 mg PO BID #14 cap 06/19/20 monohydrate/macrocrystals 100 mg capsule (Macrobid) phenazopyridine 100 mg tablet 100 mg PO TID 5 Days #15 tab 06/19/20 nitrofurantoin 100 mg PO Q12H 7 Days #14 cap 09/26/20 monohydrate/macrocrystals 100 mg capsule (Macrobid) phenazopyridine 200 mg tablet 200 mg PO TID PRN #6 tab 09/26/20 (Pyridium) benzonatate 100 mg capsule 100 mg PO TID PRN #14 cap 12/22/20 (Tessalon Perles) fluconazole 150 mg tablet 150 mg PO Q3D 1 Days #1 tab 01/27/21 (Diflucan) metronidazole 500 mg tablet 500 mg PO BID 7 Days #14 tab 01/30/21 (Flagyl) Allergies Allergy/AdvReac Type Severity Reaction Status Date / Time No Known Allergies Allergy Verified 12/22/20 12:04 Review of Systems Constitutional: Constitutional: Reports no additional constitutional complaints, Reports body ache(s), Denies chills, Denies fever(s), Reports lethargy and Denies night sweats Eyes: Eyes: Reports no additional eye complaints, Denies blurry vision, Denies change in vision, Denies diplopia, Denies eye discharge, Denies loss of vision and Denies eye pain ENT: Denies dizziness Cardiovascular: Cardiovascular: Reports no additional cardiovascular complaints, Denies chest pain, Denies lightheadedness, Denies Loss of Consciousness and Denies dyspnea Respiratory: Respiratory: Reports no additional respiratory complaints and Denies dyspnea Gastrointestinal: Gastrointestinal: Reports no additional gastrointestinal complaints, Denies abdominal pain, Denies melena, Denies hematochezia, Denies change in bowel habits and Denies change in stool character Genitourinary: Genitourinary: Denies hematuria, Denies urinary frequency, Denies dysuria, Denies urinary incontinence, Denies urinary hesitancy and Denies urinary urgency Musculoskeletal: Musculoskeletal: Reports no additional musculoskeletal complaints, Denies numbness and Denies tingling Neurologic: Denies dizziness, Denies loss of vision, Denies numbness and Denies tingling Psychiatric: Psychiatric: Reports no additional psychiatric complaints Endocrine: Endocrine: Reports no additional endocrine complaints Hematologic/Lymphatic: Hematologic/Lymphatic: Reports no additional hematologic/lymphatic complaints Allergic/Immunologic: Allergic/Immunologic: Reports no additional allergic/immunologic complaints PMFSH Past Medical History Attestation statement: The following information was validated with the patient. Medical History No known health problems Social History Social History Alcohol intake: never Advance Directives: No Advance Directives Information Provided: No Patient : No Physical Exam Vital Signs: Vital Signs: Last Vital Signs Temp 98.5 F 05/30/21 18:03 Pulse 82 05/30/21 18:03 Resp 16 05/30/21 18:03 BP 136/86 05/30/21 18:03 BMI result Body Mass Index 28.3 Const: General: cooperative, no acute distress, alert and awake Nutritional Appearance: well nourished Orientation/consciousness: patient oriented x3 Limitations: no limitations HENMT: Head: Yes normal to inspection and Yes atraumatic Ears: hearing grossly normal bilaterally and external ears normal General nose exam: Normal external nose present, no nasal discharge noted and no epistaxis Face and sinus: Yes normal facial exam, No abrasion and No laceration Mouth: Normal oral and palatal mucosa present, no drooling and no muffled voice Eyes: General: appearance normal, both eyes and all related structures Periorbital: periorbital findings normal Eyelids: Yes eyelids normal Conjunctivae: conjunctivae normal Pupils: Equal, round and reactive pupils present EOM: EOMs intact bilaterally Neck: Neck: Yes normal visual inspection, Yes full ROM and Yes no lymphadenopathy Chest: Chest palpation & inspection: normal inspection of the chest Resp: Effort & Inspection: normal respiratory effort and able to speak in complete sentences Auscultation: clear to auscultation bilaterally GI: Inspection: Yes normal to inspection Palpation (GI): Soft to palpation, nontender and no guarding Neuro: General: patient oriented x3 and moves all extremities Cranial nerves: Yes Equal, round and reactive pupils present Cognition (Neuro): normal cognition Motor exam (neuro): 5/5 motor strength present throughout Sensory Exam: Normal double simultaneous stimulation for sensation Coordination: [id number] test normal Extrem: General: Yes normal to inspection, Yes full ROM and Yes capillary refill normal Psych: Appearance: grossly normal Mental Status: mental status grossly normal Affect: normal affect Attitude: cooperative Thought process: Normal thought process present Thought content: Normal thought content present Insight: Good insight present (Psych) Medical Decision Making MDM Narrative Medical decision making narrative: Patient is a 30 year old female presenting to the emergency department today with body aches and feeling generally unwell. Patient's physical exam was unremarkable. Patient's COVID-19 test is positive. I explained my physical exam findings as well as all test results to the patient. I answered all questions asked by the patient. I stressed the importance of patient falling all quarantine and isolation guidelines, per the CDC. I stressed the importance of the patient following up with her primary care provider. I stressed the importance of the patient returning to the emergency department immediately if her symptoms were to worsen or if she were to develop any dizziness, shortness of breath, difficulty breathing, chest pain, blurry vision, loss of vision, nausea, vomiting, abdominal pain, fever, chills, back pain, or any other complaints. Patient verbalized agreement and understanding with this treatment plan and discharge. Differential Diagnosis Differential Diagnosis: COVID-19, upper respiratory infection, viral illness Medical Records Medical records reviewed: Yes I reviewed the patient's medical records. Lab Data Lab results reviewed: Yes I reviewed the patient's lab results. Labs: Lab Results 05/30/21 Range/Units 18:37 COVID-19 ([facility]IVIAN) Negative (Negative) COVID-19 Clin Com See Note Discharge Plan Discharge Clinical Impression: COVID-19, Upper respiratory infection Patient Disposition: Home, Self-Care Instructions: Covid-19 Viral Syndrome and Novel Coronavirus (ED) Hey/Ath, Viral Syndrome (ED), COVID-19 (Coronavirus Disease 2019) (ED) Additional Instructions: Call to discuss finding and establishing with a primary care provider. Prescriptions: No Action nitrofurantoin monohyd/m-cryst [Macrobid] 100 mg capsule 100 mg PO BID Qty: 14 RF: 0 phenazopyridine 100 mg tablet 100 mg PO TID 5 Days Qty: 15 RF: 0 nitrofurantoin monohyd/m-cryst [Macrobid] 100 mg capsule 100 mg PO Q12H 7 Days Qty: 14 RF: 0 phenazopyridine [Pyridium] 200 mg tablet 200 mg PO TID PRN (Reason: pain) Qty: 6 RF: 0 benzonatate [Tessalon Perles] 100 mg capsule 100 mg PO TID PRN (Reason: cough) Qty: 14 RF: 0 fluconazole [Diflucan] 150 mg tablet 150 mg PO Q3D 1 Days Qty: 1 RF: 0 metronidazole [Flagyl] 500 mg tablet 500 mg PO BID 7 Days Qty: 14 RF: 0 Interventions: ED Discharge Assessment Last Done: 05/30/21 21:16 Discharge Date/Time: 05/30/21 20:37 Print Language: Egyptian
== END 2021-05-30 20:37 | disposition home or self-care (01) ==
PROVIDERS: Emergency Provider Internal Medicine
DX: U07.1 COVID-19 (principal); J06.9 Acute upper respiratory infection, unspecified
CPT/HCPCS: 87635; 99283

== ENCOUNTER 2021-08-31 12:53 | Emergency (ER) | payer MEDICAID, SELFPAY ==
--- NOTE | ~2021-08-31 | US_ITS ---
EXAMINATION: US OBSTETRICAL ULTRASOUND CLINICAL INFORMATION: Positive urinary test. LMP on July 26, 2021. Lower abdominal pain. Serum hCG level of 189. Serum hCG level of COMPARISON: None. LMP: 07/26/2021.. Gestational age by maternal dates is 5 weeks and 1 day. Estimated date of delivery by maternal dates is 05/02/2022. TECHNIQUE: Ultrasound of the maternal pelvis is performed using transabdominal and transvaginal transducers. Transvaginal imaging is performed due to inadequate visualization transabdominally. FINDINGS: The uterus is anteverted, shows small homogenous endometrial echogenicity with double layer measuring 1.4 cm. No evidence of any gestational sac, yolk sac or pole identified. There is no endometrial cavity fluid present. Incidental note is made of nabothian cysts. MATERNAL ADNEXA: The right maternal ovary measures 3.9 x 1.9 x 2.8 cm. 1.7 x 1.4 x 1.5 cm focal isodense echogenicity is noted within the right ovary likely represents a hemorrhagic follicle. The left maternal ovary measures 3.7 x 2.2 x 2.3 cm. There is no significant maternal adnexal mass. Trace amount of free fluid within the pouch of Shaan. US/US OB <= 14 weeks fetus IMPRESSION: 1. No sonographic evidence of intrauterine is identified. Both adnexa appear unremarkable. Given the patient's positive test, the finding is consistent with of unknown location. Possible differential diagnostic consideration would include early intrauterine , or ectopic as well as complicated spontaneous . Unfortunately, a single beta-hCG serum level of 189 does not allow reliable differentiation among these possibilities. Serial serum beta-hCG level and follow-up sonographic imaging surveillance as appropriate is recommended unless the patient is hemodynamically unstable. 2. Trace amount of free fluid within the pouch of Shaan.
[2021-08-31 13:07] VITALS: BP 119/76; PULSE 89; RESP 18; TEMP 36.6; O2SAT 99; BMI 28.3
[2021-08-31 13:25] LABS: MANUAL DIFF FLAG NO
[2021-08-31 13:29] LABS: Appearance Urine HAZY; Color Urine YELLOW; Glucose Urine UA NEG (NEG); Leukocyte Esterase Urine NEG (NEG); Nitrite Urine NEG (NEG); PH 5.5 (5.0-8.0); Specific Gravity - Urine >= 1.030 (1.005-1.025); UACC Culture Trigger NO; Urine Blood TRACE (NEG); Urine Ketones 5 MG/DL (NEG); Urine Protein TRACE MG/DL (NEG-TRACE)
[2021-08-31 13:32] LABS: Urine Pregnancy POSITIVE (NEGATIVE)
[2021-08-31 13:33] LABS: UPreg QC Valid YES
[2021-08-31 13:37] LABS: Basophils Absolute Auto 0.1 X10*3/uL (0.0-0.2); Basophils Percent Auto 0.6 % (0-2); Eosinophils Absolute Auto 0.1 X10*3/uL (0.0-0.4); Eosinophils Percent Auto 1.4 % (0-4); Hematocrit 39.8 % (37.0-47.0); Hemoglobin 12.7 g/dl (12.0-16.0); Imm Gran Abs Auto 0.04 X10*3/uL (0.00-0.03); Imm Gran Pct Auto 0.5 % (0.0-0.4); Lymphocytes Absolute Auto 1.9 X10*3/uL (1.2-4.9); Lymphocytes Percent Auto 23.3 % (20-40); Mean Corpuscular HGB Conc 31.9 g/dl (31.0-35.0); Mean Corpuscular Hemoglobin 24.5 pg (27.0-33.0); Mean Corpuscular Volume 76.8 fL (80.0-98.0); Mean Platelet Volume 9.4 fL (9.4-12.3); Monocytes Absolute Auto 0.6 X10*3/uL (0.1-1.2); Monocytes Percent Auto 7.8 % (2-11); Neutrophils Absolute Auto 5.4 x10*3/uL (2.0-8.3); Neutrophils Percent Auto 66.4 % (45-73); Platelet Count 389 X10*3/uL (160-400); Red Blood Count 5.18 X10*6/uL (4.20-5.50); Red Cell Distribution Width 15.7 % (11.0-16.0); White Blood Count 8.1 X10*3/uL (4.8-10.8)
[2021-08-31 13:42] LABS: Mucus Urine 2+ /LPF; RBC Urine 0-2 /HPF (0); Squamous Epithelial Cell Urine 1+ /LPF; WBC Urine 0 /HPF (0-4)
[2021-08-31 13:51] LABS: Anion Gap 13 (12-20); Blood Urea Nitrogen 15 mg/dL (9-16); Calcium 9.3 mg/dL (8.4-10.2); Carbon Dioxide 21 mmol/L (22-29); Chloride 106 mmol/L (96-108); Creatinine Clr Calc Pharmacy 104.2; Estimated Glomerular Filt Rate > 60; Glucose Random 99 mg/dL (60-115); Potassium 3.8 mmol/L (3.3-5.1); Sodium 136 mmol/L (135-145)
[2021-08-31 14:22] LABS: HCG Quantitative 189 mIU/mL
[2021-08-31 14:31] LABS: Alanine Aminotransferase 11 U/L (0-31); Albumin Level 4.3 g/dL (3.5-5.0); Alkaline Phosphatase 88 U/L (39-117); Aspartate Amino Transferase 15 U/L (5-31); Bilirubin Direct 0.2 mg/dL (0.0-0.5); Bilirubin Total 0.6 mg/dL (0.0-1.0); Lipase 17 U/L (8-78); Total Protein 7.8 g/dL (6.5-8.0)
--- NOTE | 2021-08-31 15:17 | ED_ITS ---
HPI - Female Genitourinary General Chief complaint: Urogenital-Female Stated complaint: UTI Time Seen by Provider: 08/31/21 13:57 Source: patient Mode of arrival: ambulatory History of Present Illness HPI Narrative: 30-year-old female with no significant past medical history presenting to the ED complaining of dysuria, suprapubic/lower abdominal discomfort and low back pain x3 days. LMP 07/26/21. Also reports small amount of vaginal discharge x3 days. Is sexually active, denies concern for STI. Denies fever, chills, nausea, vomiting, diarrhea, flank pain, vaginal bleeding MD elicited complaint: dysuria and UTI Related Data Previous Rx's Medication Instructions Recorded nitrofurantoin 100 mg PO BID #14 cap 06/19/20 monohydrate/macrocrystals 100 mg capsule (Macrobid) phenazopyridine 100 mg tablet 100 mg PO TID 5 Days #15 tab 06/19/20 nitrofurantoin 100 mg PO Q12H 7 Days #14 cap 09/26/20 monohydrate/macrocrystals 100 mg capsule (Macrobid) phenazopyridine 200 mg tablet 200 mg PO TID PRN #6 tab 09/26/20 (Pyridium) benzonatate 100 mg capsule 100 mg PO TID PRN #14 cap 12/22/20 (Tessalon Perles) fluconazole 150 mg tablet 150 mg PO Q3D 1 Days #1 tab 01/27/21 (Diflucan) metronidazole 500 mg tablet 500 mg PO BID 7 Days #14 tab 01/30/21 (Flagyl) prenat.vits,darrius,ucz-[id number] 1 tab PO DAILY #30 tab 08/31/21 Allergies Allergy/AdvReac Type Severity Reaction Status Date / Time No Known Allergies Allergy Verified 12/22/20 12:04 Review of Systems Review of Systems: Constitutional: No Fever, No Chills, No Fatigue, No Malaise ENT/Mouth: No Hearing loss, No Ear Pain, No sore throat, No Rhinorrhea, No Swallowing Difficulty Eyes: No Eye Pain, No Swelling, No Redness, No Foreign Body, No Discharge, No Vision Changes Cardiovascular: No Chest Pain, No SOB,No Edema, No Palpitations Respiratory: No Cough, No Sputum, No Dyspnea Gastrointestinal: No Nausea, No Vomiting, No Diarrhea, No Constipation, + Abdominal pain Genitourinary: No irregular bleeding, + Dysuria, + Urinary Frequency, +vaginal d/c, No Hematuria, No Urinary Incontinence, No Urgency, No Flank Pain, No Urinary Flow Changes, No Hesitancy Musculoskeletal: No joint pain, No Myalgias, No Joint Swelling Skin: No Skin Lesions, No rash Neuro: No Weakness, No Dizziness, No Headache Yes all other systems are reviewed and are negative [facility] Past Medical History Attestation statement: The following information was validated with the patient. Medical History No known health problems Social History Social History Alcohol intake: never Advance Directives: No Advance Directives Information Provided: No Patient : No Physical Exam Vital Signs: Vital Signs: Last Vital Signs Temp 98 F 08/31/21 13:07 Pulse 89 08/31/21 13:07 Resp 18 08/31/21 13:07 BP 119/76 08/31/21 13:07 Pulse Ox 99 08/31/21 13:07 BMI result Body Mass Index 28.3 Const: General: cooperative, healthy appearing and no acute distress Orientation/consciousness: patient oriented x3 Limitations: no limitations HEENT: Head: Yes normal to inspection and Yes atraumatic Ears: hearing grossly normal bilaterally General nose exam: Normal external nose present Face and sinus: Yes normal facial exam Eyes: General: appearance normal, both eyes and all related structures EOM: EOMs intact bilaterally Neck: Neck: Yes normal visual inspection and Yes no meningeal signs Resp: Effort & Inspection: normal respiratory effort and no respiratory distress Auscultation: clear to auscultation bilaterally Cardio: Rate: regular rate Heart sounds: S1 normal heart sound present and S2 normal heart sound present GI: Inspection: Yes normal to inspection Palpation (GI): Soft to palpation, nontender, no guarding and not rigid : Other: Patient deferred pelvic exam General: Yes no CVA tenderness Back/Spine/Pelvis: Back: no CVA tenderness Skin: Rashes: no rashes Wounds: no wounds Neuro: General: patient oriented x3, tone normal and no meningeal signs Gait exam (Neuro): Normal gait present Extrem: General: Yes normal to inspection Course Course Course Narrative: -no leukocytosis. Labs otherwise unremarkable. -UA with 5 ketones, not infected, urine positive > additional labs and ultrasound added >> hCG 189 US OB <= 14 weeks fetus IMPRESSION: ? 1. No sonographic evidence of intrauterine is identified. Both adnexa appear unremarkable. Given the patient's positive test, the finding is consistent with of unknown location. Possible differential diagnostic consideration would include early intrauterine , or ectopic as well as complicated spontaneous . Unfortunately, a single beta-hCG serum level of 189 does not allow reliable differentiation among these possibilities. Serial serum beta-hCG level and follow-up sonographic imaging surveillance as appropriate is recommended unless the patient is hemodynamically unstable. 2. Trace amount of free fluid within the pouch of Shaan. Results discussed with patient including worrisome signs and symptoms and strict return precautions, discussed this could be ectopic versus early and stressed importance of needing close follow-up for repeat lab/ultrasound. Patient verbalized understanding and feels safe for discharge home MDM - Female Genitourinary MDM Narrative Medical decision making narrative: 30-year-old female with no significant past medical history presenting to the ED complaining of dysuria, suprapubic/lower abdominal discomfort and low back pain x3 days. On exam vital signs stable, NAD/nontoxic, abdomen soft/nontender, no CVA tenderness. Patient deferred pelvic exam. Concern for UTI vs STI. Lower concern for torsion/ovarian cyst without tenderness on exam. Rule out . Low concern for appendicitis/diverticulitis or renal stone Plan: UA, urine Differential Diagnosis Differential diagnosis: Likely urinary tract infection, bacterial vaginosis, trichomoniasis and ruptured ovarian cyst Medical Records Attestation: I reviewed the patient's medical records. Lab Data Attestation: I reviewed the patient's lab results. Result diagrams: 08/31/21 13:22 08/31/21 13:22 Labs: Lab Results 08/31/21 08/31/21 08/31/21 Range/Units 13:22 13:22 13:22 WBC 8.1 (4.8-10.8) X10*3/uL RBC 5.18 (4.20-5.50) X10*6/uL Hgb 12.7 (12.0-16.0) g/dl Hct 39.8 (37.0-47.0) % MCV 76.8 L (80.0-98.0) fL MCH 24.5 L (27.0-33.0) pg MCHC 31.9 (31.0-35.0) g/dl RDW 15.7 (11.0-16.0) % Plt Count 389 (160-400) X10*3/uL MPV 9.4 (9.4-12.3) fL Immature Gran % (Auto) 0.5 H (0.0-0.4) % Neut % (Auto) 66.4 (45-73) % Lymph % (Auto) 23.3 (20-40) % [place] % (Auto) 7.8 (2-11) % Eos % (Auto) 1.4 (0-4) % Baso % (Auto) 0.6 (0-2) % Lymph # (Auto) 1.9 (1.2-4.9) X10*3/uL [place] # (Auto) 0.6 (0.1-1.2) X10*3/uL Eos # (Auto) 0.1 (0.0-0.4) X10*3/uL Baso # (Auto) 0.1 (0.0-0.2) X10*3/uL Abs Immat Gran (auto) 0.04 H (0.00-0.03) X10*3/uL Absolute Neuts (auto) 5.4 (2.0-8.3) x10*3/uL Absolute Nucleated RBC 0.000 (0.0-0.012) X10*3/uL Nucleated RBC % (auto) 0.0 (0.0-0.2) /100WBC Sodium 136 (135-145) mmol/L Potassium 3.8 (3.3-5.1) mmol/L Chloride 106 (96-108) mmol/L Carbon Dioxide 21 L (22-29) mmol/L Anion Gap 13 (12-20) BUN 15 (9-16) mg/dL Creatinine 0.76 (0.5-1.4) mg/dL Estim Creat Clear Calc 104.2 Estimated GFR > 60 Random Glucose 99 (60-115) mg/dL Calcium 9.3 (8.4-10.2) mg/dL Total Bilirubin 0.6 (0.0-1.0) mg/dL Direct Bilirubin 0.2 (0.0-0.5) mg/dL AST 15 (5-31) U/L ALT 11 (0-31) U/L Alkaline Phosphatase 88 (39-117) U/L Total Protein 7.8 (6.5-8.0) g/dL Albumin 4.3 (3.5-5.0) g/dL Lipase 17 (8-78) U/L Beta HCG, Quant 189 mIU/mL Urine Color YELLOW Urine Appearance HAZY Urine pH 5.5 (5.0-8.0) Ur Specific [place] >= 1.030 H (1.005-1.025) Urine Protein TRACE (NEG-TRACE) MG/DL Urine Glucose (UA) NEG (NEG) MG/DL Urine Ketones 5 (NEG) MG/DL Urine Blood TRACE (NEG) Urine Nitrite NEG (NEG) Ur Leukocyte Esterase NEG (NEG) Urine RBC 0-2 (0) /HPF Urine WBC 0 (0-4) /HPF Ur Squamous Epith Cells 1+ /LPF Urine Bacteria NONE /LPF Urine Mucus 2+ /LPF Urine Test (NEGATIVE) 08/31/21 Range/Units 13:22 WBC (4.8-10.8) X10*3/uL RBC (4.20-5.50) X10*6/uL Hgb (12.0-16.0) g/dl Hct (37.0-47.0) % MCV (80.0-98.0) fL MCH (27.0-33.0) pg MCHC (31.0-35.0) g/dl RDW (11.0-16.0) % Plt Count (160-400) X10*3/uL MPV (9.4-12.3) fL Immature Gran % (Auto) (0.0-0.4) % Neut % (Auto) (45-73) % Lymph % (Auto) (20-40) % [place] % (Auto) (2-11) % Eos % (Auto) (0-4) % Baso % (Auto) (0-2) % Lymph # (Auto) (1.2-4.9) X10*3/uL [place] # (Auto) (0.1-1.2) X10*3/uL Eos # (Auto) (0.0-0.4) X10*3/uL Baso # (Auto) (0.0-0.2) X10*3/uL Abs Immat Gran (auto) (0.00-0.03) X10*3/uL Absolute Neuts (auto) (2.0-8.3) x10*3/uL Absolute Nucleated RBC (0.0-0.012) X10*3/uL Nucleated RBC % (auto) (0.0-0.2) /100WBC Sodium (135-145) mmol/L Potassium (3.3-5.1) mmol/L Chloride (96-108) mmol/L Carbon Dioxide (22-29) mmol/L Anion Gap (12-20) BUN (9-16) mg/dL Creatinine (0.5-1.4) mg/dL Estim Creat Clear Calc Estimated GFR Random Glucose (60-115) mg/dL Calcium (8.4-10.2) mg/dL Total Bilirubin (0.0-1.0) mg/dL Direct Bilirubin (0.0-0.5) mg/dL AST (5-31) U/L ALT (0-31) U/L Alkaline Phosphatase (39-117) U/L Total Protein (6.5-8.0) g/dL Albumin (3.5-5.0) g/dL Lipase (8-78) U/L Beta HCG, Quant mIU/mL Urine Color Urine Appearance Urine pH (5.0-8.0) Ur Specific [place] (1.005-1.025) Urine Protein (NEG-TRACE) MG/DL Urine Glucose (UA) (NEG) MG/DL Urine Ketones (NEG) MG/DL Urine Blood (NEG) Urine Nitrite (NEG) Ur Leukocyte Esterase (NEG) Urine RBC (0) /HPF Urine WBC (0-4) /HPF Ur Squamous Epith Cells /LPF Urine Bacteria /LPF Urine Mucus /LPF Urine Test POSITIVE H (NEGATIVE) Discharge Plan Discharge Clinical Impression: Early stage of Patient Disposition: Home, Self-Care Instructions: (ED) Additional Instructions: Your . Your hCG level is 189 Your ultrasound does not show evidence of a normal , however this is expected due to how early in are. Due to these findings there was concern that this is an ectopic meaning a in the wrong location and or could be an early miscarriage. It is very important for you to get repeat blood work in 2 days, and call your OBGYN 1st thing tomorrow morning. You need a repeat ultrasound in 1-2 weeks. If her symptoms persist or worsen, he developed constant worsening abdominal pain, vaginal bleeding, vaginal discharge or fever please return to the ED immediately Please start taking vitamins Prescriptions: New abigail.vits,darrius,nox-jkky-clwxa Tablet 1 tab PO DAILY Qty: 30 0RF No Action nitrofurantoin monohyd/m-cryst [Macrobid] 100 mg capsule 100 mg PO BID Qty: 14 0RF Rx Instructions: must administer with a meal/food phenazopyridine 100 mg tablet 100 mg PO TID 5 Days Qty: 15 0RF nitrofurantoin monohyd/m-cryst [Macrobid] 100 mg capsule 100 mg PO Q12H 7 Days Qty: 14 0RF Rx Instructions: must administer with a meal/food phenazopyridine [Pyridium] 200 mg tablet 200 mg PO TID PRN (Reason: pain) Qty: 6 0RF benzonatate [Tessalon Perles] 100 mg capsule 100 mg PO TID PRN (Reason: cough) Qty: 14 0RF fluconazole [Diflucan] 150 mg tablet 150 mg PO Q3D 1 Days Qty: 1 0RF Rx Instructions: Your given 1st dose in the ED today, may repeat second dose 72 hrs after fi rst dose if symptoms persist metronidazole [Flagyl] 500 mg tablet 500 mg PO BID 7 Days Qty: 14 0RF Referrals: Adan Bal MD [Physician] - 2 days Interventions: ED Discharge Assessment Last Done: 08/31/21 15:38 Discharge Date/Time: 08/31/21 15:41
[2021-09-01 05:40] LABS: CT PCR NOT DETECTED (Not Detect.); NG PCR NOT DETECTED (Not Detect.)
== END 2021-08-31 15:41 | disposition home or self-care (01) ==
PROVIDERS: Physician Assistant; Emergency Provider Emergency Medicine
DX: O23.41 Unspecified infection of urinary tract in pregnancy, first trimester (principal); N39.0 Urinary tract infection, site not specified; R30.0 Dysuria; Z3A.01 Less than 8 weeks gestation of pregnancy; Z79.899 Other long term (current) drug therapy
CPT/HCPCS: 36415; 76801; 80048; 80076; 81001; 81025; 83690; 84702; 85025; 87491; 87591; 99284

== ENCOUNTER 2021-09-02 14:53 | Outpatient (REF) | payer MEDICAID, SELFPAY ==
[2021-09-02 16:12] LABS: HCG Quantitative 629 mIU/mL
== END 2021-09-02 14:54 | disposition home or self-care (01) ==
LOC: HO.LAB 14:53
PROVIDERS: Absent Provider Obstetrics & Gynecology; PCP Internal Medicine Geriatric Medicine; Visit Provider Physician Assistant
DX: Z34.90 Encounter for supervision of normal pregnancy, unspecified, unspecified trimester (principal)
CPT/HCPCS: 36415; 84702

== ENCOUNTER → 2021-09-19 14:13 | Outpatient (BNVA) | payer MEDICAID, SELFPAY | PROVIDERS: PCP Internal Medicine Geriatric Medicine; Visit Provider Advanced Practice Midwife | DX: N92.6 Irregular menstruation, unspecified (principal); M54.50 Low back pain, unspecified | CPT/HCPCS: 99212 ==

== ENCOUNTER 2021-09-24 21:01 | Emergency (ER) | payer MEDICAID, SELFPAY ==
[2021-09-24 21:55] VITALS: BP 122/83; PULSE 112; RESP 18; TEMP 36; O2SAT 97; BMI 29.4
[2021-09-24 22:36] LABS: MANUAL DIFF FLAG NO
[2021-09-24 22:41] LABS: Basophils Absolute Auto 0.1 X10*3/uL (0.0-0.2); Basophils Percent Auto 0.4 % (0-2); Eosinophils Percent Auto 0.2 % (0-4); Hematocrit 37.6 % (37.0-47.0); Hemoglobin 12.3 g/dl (12.0-16.0); Imm Gran Abs Auto 0.09 X10*3/uL (0.00-0.03); Imm Gran Pct Auto 0.5 % (0.0-0.4); Lymphocytes Absolute Auto 1.9 X10*3/uL (1.2-4.9); Mean Corpuscular HGB Conc 32.7 g/dl (31.0-35.0); Mean Corpuscular Hemoglobin 25.1 pg (27.0-33.0); Mean Corpuscular Volume 76.7 fL (80.0-98.0); Mean Platelet Volume 9.2 fL (9.4-12.3); Monocytes Percent Auto 5.9 % (2-11); Neutrophils Absolute Auto 13.8 x10*3/uL (2.0-8.3); Platelet Count 369 X10*3/uL (160-400); Red Cell Distribution Width 15.9 % (11.0-16.0); White Blood Count 16.9 X10*3/uL (4.8-10.8)
[2021-09-24 22:53] LABS: Alanine Aminotransferase 14 U/L (0-31); Albumin Level 4.1 g/dL (3.5-5.0); Alkaline Phosphatase 73 U/L (39-117); Anion Gap 13 (12-20); Aspartate Amino Transferase 18 U/L (5-31); Bilirubin Total 0.2 mg/dL (0.0-1.0); Blood Urea Nitrogen 13 mg/dL (9-16); Calcium 9.4 mg/dL (8.4-10.2); Carbon Dioxide 19 mmol/L (22-29); Chloride 106 mmol/L (96-108); Creatinine Clr Calc Pharmacy 100.8; Estimated Glomerular Filt Rate > 60; Glucose Random 119 mg/dL (60-115); Potassium 3.9 mmol/L (3.3-5.1); Sodium 134 mmol/L (135-145); Total Protein 7.6 g/dL (6.5-8.0)
[2021-09-24 22:57] LABS: Appearance Urine CLEAR; Color Urine YELLOW; Glucose Urine UA NEG (NEG); Leukocyte Esterase Urine NEG (NEG); Nitrite Urine NEG (NEG); PH 6.5 (5.0-8.0); UPreg QC Valid YES; Urine Blood NEG (NEG); Urine Ketones NEG (NEG); Urine Pregnancy POSITIVE (NEGATIVE); Urine Protein NEG (NEG-TRACE)
== END 2021-09-25 01:44 | disposition left against medical advice (07) ==
PROVIDERS: Emergency Provider Emergency Medicine; PCP Internal Medicine Geriatric Medicine
DX: O26.91 Pregnancy related conditions, unspecified, first trimester (principal); Z3A.08 8 weeks gestation of pregnancy; Z79.899 Other long term (current) drug therapy
CPT/HCPCS: 36415; 80053; 81003; 81025; 84702; 85025; 99283

== ENCOUNTER 2021-09-26 10:15 | Emergency (ER) | payer MEDICAID, SELFPAY ==
--- NOTE | ~2021-09-26 | US_ITS ---
EXAMINATION: OBSTETRICAL ULTRASOUND, FIRST TRIMESTER HISTORY: 30-year-old at the 8.6 weeks of gestation Vaginal bleeding Viability LMP: 07/26/2021 COMPARISON: 08/31/2021 TECHNIQUE: Real time transabdominal imaging with color and M-mode Doppler. FINDINGS: A single, live IUP CRL of 13.5 mm c/w 7.5wks is noted. Heart Rate: 163 beats per minute. The placenta is forming posteriorly. There is no evidence of subchorionic hematoma. The right ovary is within normal limits. The left is the not seen but the adnexa is benign. There is no free fluid in the cul-de-sac. GESTATIONAL AGE: 1. GA from LMP: 8.6 wks 2. GA from AUA: 7.5 wks ESTIMATED DATE OF DELIVERY: 1. JOHN from LMP: 05/02/2022 2. JOHN from AUA: 05/10/2022 US/US OB pelvic and transvaginal IMPRESSION: 1. A single live IUP 2. Size less than dates, CRL corresponds to 7.5 weeks of gestation 3. Adjust her JOHN to 05/10/2022 I reassured the patient that there is a viable live IUP. No evidence of subchorionic hematoma. The serum beta-hCG appears to be plateauing between 09/24/2021 and 09/26/2021. Clinical correlation is advised. No specific ultrasound followup appears needed at this time. Thank you very much for this referral. This note was generated with a voice recognition program. Please excuse any errors which may have been overlooked during my review of this note. Sometimes these errors may affect the content or meaning of a given sentence.
[2021-09-26 10:25] VITALS: BP 131/71; PULSE 76; RESP 16; TEMP 36.3; O2SAT 97; BMI 29.4
[2021-09-26 12:13] VITALS: BP 125/75; PULSE 78; RESP 16; TEMP 36.7; O2SAT 99
--- NOTE | 2021-09-26 12:26 | ED_ITS ---
HPI - Female Genitourinary General Chief complaint: Vaginal Bleeding Stated complaint: 8 wks preg heavy vaginal bleeding Time Seen by Provider: 09/26/21 12:11 Source: patient Mode of arrival: ambulatory Limitations: no limitations History of Present Illness HPI Narrative: 30-year-old female , LMP 07/26/2021 (8 weeks 6 days by dates) who presents emergency department for evaluation of vaginal bleeding. Patient was 1st seen here in the emergency department on 08/31/2021 for dysuria and lower back pain. Her quantitative beta-hCG was 189 and ultrasound revealed no evidence of . The patient followed up with OBGYN on 09/19/2021 and had a positive urine test. She was scheduled for an OBGYN ultrasound today at the office. 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 At that time she did have a quantitative beta HCG which was 91,527. The patient states that she was at work and she felt that as if she was incontinent of urine . When she went to the bathroom she noted that she was bleeding and she bled through her underwear and through her pants. She states that she put on an OB pad and she soaked through 1 OB pad over 1 hour. She denied abdominal pain. She denied lightheadedness or dizziness. She denied fever, chills, rhinorrhea, sore throat, cough, chest pain, shortness of breath or dyspnea on exertion. The patient has not been vaccinated for COVID-19. Related Data Home Medications Medication Instructions Recorded Confirmed omeprazole 20 mg capsule,delayed 20 mg PO DAILY 09/19/21 release Previous Rx's Medication Instructions Recorded prenat.vits,darrius,drh-lyfa-qgryi 1 tab PO DAILY #30 tab 08/31/21 Allergies Allergy/AdvReac Type Severity Reaction Status Date / Time No Known Allergies Allergy Verified 09/26/21 10:29 Review of Systems Review of Systems: Yes all other systems are reviewed and are negative ON LICENSE OF [facility] Past Medical History ON LICENSE OF [facility] Narrative: Past medical history: None. Past surgical history: None. Will social history: She denies tobacco, alcohol and drug use. Medical History No known health problems Social History Social History Household Members: Significant Other Housing: Apartment Alcohol intake: never Patient Tobacco Use Status: Never used Tobacco Advance Directives: No Advance Directives Information Provided: No Sexual orientation: Straight/Heterosexual Gender identity: Female Physical Exam Vital Signs: Vital Signs: Last Vital Signs Temp 98.1 F 09/26/21 12:13 Pulse 77 09/26/21 15:23 Resp 18 09/26/21 15:23 BP 108/69 09/26/21 15:23 Pulse Ox 99 09/26/21 15:23 BMI result Body Mass Index 29.4 Course Course Course Narrative: 30-year-old female , LMP 07/26/2021 (8 weeks 6 days by dates) presents emergency department for evaluation of vaginal bleeding. The patient was seen by OBGYN on 09/19/2021. She came to the emergency department on 09/24/2021 for abdominal cramping with no spotting but left prior to being seen secondary to the long wait. At that time she did have a quantitative beta HCG which was 91,527. Her labs are otherwise unremarkable. She presents today with vaginal bleeding states she soaked through 1 OB pad. She denies any abdominal pain or cramping. Vital signs were normal. Physical examination revealed no abdominal tenderness. I did order a laboratory evaluation to include a quantitative beta-hCG and an ABO. I will obtain a abdominal and vaginal ultrasound to evaluate for possible ectopic . 1535: Patient's laboratory evaluation revealed a normal CBC and CMP. The patient's blood type is A positive. The patient's quantitative beta HCG did rise compared to 2 days prior it went [place] [id number]. The patient's ultrasound did not reveal a clear etiology for the patient's bleeding. The patient has a single live IUP with a heart rate of 163. The ultrasound measure gestational age correlated to 7.5 weeks which is less than the 8 weeks 6 days estimated by her LMP. I did discuss this with the patient. I told her that she should rest for the next week in not do anything strenuous and to avoid intercourse. She is to follow-up in 1 week with her OBGYN and to return if her symptoms get worse or she develops any new symptoms that are concerning to her. MDM - Female Genitourinary Lab Data Result diagrams: 09/26/21 12:44 09/26/21 12:44 Labs: Lab Results 09/26/21 09/26/21 09/26/21 Range/Units 12:44 12:44 12:44 WBC 9.3 (4.8-10.8) X10*3/uL RBC 4.91 (4.20-5.50) X10*6/uL Hgb 12.6 (12.0-16.0) g/dl Hct 38.5 (37.0-47.0) % MCV 78.4 L (80.0-98.0) fL MCH 25.7 L (27.0-33.0) pg MCHC 32.7 (31.0-35.0) g/dl RDW 15.9 (11.0-16.0) % Plt Count 355 (160-400) X10*3/uL MPV 9.3 L (9.4-12.3) fL Immature Gran % (Auto) 0.5 H (0.0-0.4) % Neut % (Auto) 76.0 H (45-73) % Lymph % (Auto) 15.7 L (20-40) % Sawyer % (Auto) 7.2 (2-11) % Eos % (Auto) 0.2 (0-4) % Baso % (Auto) 0.4 (0-2) % Lymph # (Auto) 1.5 (1.2-4.9) X10*3/uL Sawyer # (Auto) 0.7 (0.1-1.2) X10*3/uL Eos # (Auto) 0.0 (0.0-0.4) X10*3/uL Baso # (Auto) 0.0 (0.0-0.2) X10*3/uL Abs Immat Gran (auto) 0.05 H (0.00-0.03) X10*3/uL Absolute Neuts (auto) 7.1 (2.0-8.3) x10*3/uL Absolute Nucleated RBC 0.000 (0.0-0.012) X10*3/uL Nucleated RBC % (auto) 0.0 (0.0-0.2) /100WBC Sodium 135 (135-145) mmol/L Potassium 4.0 (3.3-5.1) mmol/L Chloride 105 (96-108) mmol/L Carbon Dioxide 23 (22-29) mmol/L Anion Gap 11 L (12-20) BUN 12 (9-16) mg/dL Creatinine 0.72 (0.5-1.4) mg/dL Estim Creat Clear Calc 112.0 Estimated GFR > 60 Random Glucose 83 (60-115) mg/dL Calcium 9.5 (8.4-10.2) mg/dL Total Bilirubin 0.4 (0.0-1.0) mg/dL AST 15 (5-31) U/L ALT 14 (0-31) U/L Alkaline Phosphatase 73 (39-117) U/L Total Protein 7.7 (6.5-8.0) g/dL Albumin 4.3 (3.5-5.0) g/dL Beta HCG, Quant 60730 mIU/mL COVID-19 ([facility]) Negative (Negative) COVID-19 Clin Com See Note Blood Type 09/26/21 Range/Units 12:44 WBC (4.8-10.8) X10*3/uL RBC (4.20-5.50) X10*6/uL Hgb (12.0-16.0) g/dl Hct (37.0-47.0) % MCV (80.0-98.0) fL MCH (27.0-33.0) pg MCHC (31.0-35.0) g/dl RDW (11.0-16.0) % Plt Count (160-400) X10*3/uL MPV (9.4-12.3) fL Immature Gran % (Auto) (0.0-0.4) % Neut % (Auto) (45-73) % Lymph % (Auto) (20-40) % Sawyer % (Auto) (2-11) % Eos % (Auto) (0-4) % Baso % (Auto) (0-2) % Lymph # (Auto) (1.2-4.9) X10*3/uL Sawyer # (Auto) (0.1-1.2) X10*3/uL Eos # (Auto) (0.0-0.4) X10*3/uL Baso # (Auto) (0.0-0.2) X10*3/uL Abs Immat Gran (auto) (0.00-0.03) X10*3/uL Absolute Neuts (auto) (2.0-8.3) x10*3/uL Absolute Nucleated RBC (0.0-0.012) X10*3/uL Nucleated RBC % (auto) (0.0-0.2) /100WBC Sodium (135-145) mmol/L Potassium (3.3-5.1) mmol/L Chloride (96-108) mmol/L Carbon Dioxide (22-29) mmol/L Anion Gap (12-20) BUN (9-16) mg/dL Creatinine (0.5-1.4) mg/dL Estim Creat Clear Calc Estimated GFR Random Glucose (60-115) mg/dL Calcium (8.4-10.2) mg/dL Total Bilirubin (0.0-1.0) mg/dL AST (5-31) U/L ALT (0-31) U/L Alkaline Phosphatase (39-117) U/L Total Protein (6.5-8.0) g/dL Albumin (3.5-5.0) g/dL Beta HCG, Quant mIU/mL COVID-19 ([facility]) (Negative) COVID-19 Clin Com Blood Type A Positive Discharge Plan Discharge Clinical Impression: Vaginal bleeding affecting early Patient Disposition: Home, Self-Care Instructions: Threatened Miscarriage (ED) Additional Instructions: Your blood work was normal. Your blood type is A positive (A +). The blood test did increase from 91,527 up to 95,857 which is reassuring. The ultrasound did not reveal a clear cause for your bleeding. Based on your dates you are 8 weeks and 6 days however the ultrasound measurements 7 weeks and 5 days. Miscarriages or near miscarriage (threatened /miscarriage) are common and occurred 20% of the time in early . Miscarriages usually occur cause the baby stops grow and not because of something that you did to cause the miscarriage. I want you to take it easy for the next week, do not have any sex, continue to take your vitamins and follow the threatened /miscarriage instructions. Follow-up with your OBGYN within 1 week. Please return to the emergency department if your symptoms get worse or if you develop any symptoms that are concerning to you. Prescriptions: No Action prenat.vits,darrius,[id number]-eltu-thtoq Tablet 1 tab PO DAILY Qty: 30 0RF omeprazole 20 mg capsule,delayed release(DR/EC) 20 mg PO DAILY 0RF
[2021-09-26 12:52] LABS: MANUAL DIFF FLAG NO
[2021-09-26 12:56] LABS: Basophils Percent Auto 0.4 % (0-2); Eosinophils Percent Auto 0.2 % (0-4); Hematocrit 38.5 % (37.0-47.0); Hemoglobin 12.6 g/dl (12.0-16.0); Imm Gran Abs Auto 0.05 X10*3/uL (0.00-0.03); Imm Gran Pct Auto 0.5 % (0.0-0.4); Lymphocytes Absolute Auto 1.5 X10*3/uL (1.2-4.9); Lymphocytes Percent Auto 15.7 % (20-40); Mean Corpuscular HGB Conc 32.7 g/dl (31.0-35.0); Mean Corpuscular Hemoglobin 25.7 pg (27.0-33.0); Mean Corpuscular Volume 78.4 fL (80.0-98.0); Mean Platelet Volume 9.3 fL (9.4-12.3); Monocytes Absolute Auto 0.7 X10*3/uL (0.1-1.2); Monocytes Percent Auto 7.2 % (2-11); Neutrophils Absolute Auto 7.1 x10*3/uL (2.0-8.3); Platelet Count 355 X10*3/uL (160-400); Red Blood Count 4.91 X10*6/uL (4.20-5.50); Red Cell Distribution Width 15.9 % (11.0-16.0); White Blood Count 9.3 X10*3/uL (4.8-10.8)
[2021-09-26] MEDS: 0.9 % Sodium Chloride 1,000 ML 999 ML IV (12:58)
[2021-09-26 13:08] LABS: Alanine Aminotransferase 14 U/L (0-31); Albumin Level 4.3 g/dL (3.5-5.0); Alkaline Phosphatase 73 U/L (39-117); Anion Gap 11 (12-20); Aspartate Amino Transferase 15 U/L (5-31); Bilirubin Total 0.4 mg/dL (0.0-1.0); Blood Urea Nitrogen 12 mg/dL (9-16); Calcium 9.5 mg/dL (8.4-10.2); Carbon Dioxide 23 mmol/L (22-29); Chloride 105 mmol/L (96-108); Estimated Glomerular Filt Rate > 60; Glucose Random 83 mg/dL (60-115); Sodium 135 mmol/L (135-145); Total Protein 7.7 g/dL (6.5-8.0)
[2021-09-26 13:15] LABS: COVID-19 Test Negative (Negative); IDNOW Serial# 08D9AD1C
[2021-09-26 15:23] VITALS: BP 108/69; PULSE 77; RESP 18; O2SAT 99
--- NOTE | 2021-09-26 15:25 | PC.NURSE ---
pt a&ox3, vss, denies any pain at this time, bleeding/discharge has decreased since arrival at [facility] [place] ivf running. no new orders at this time.
== END 2021-09-26 16:01 | disposition home or self-care (01) ==
PROVIDERS: Emergency Provider Emergency Medicine Emergency Medical Services; PCP Internal Medicine Geriatric Medicine
DX: O20.9 Hemorrhage in early pregnancy, unspecified (principal); Z3A.08 8 weeks gestation of pregnancy; Z20.822 Contact with and (suspected) exposure to COVID-19
CPT/HCPCS: 76801; 76817; 80053; 84702; 85025; 86900; 86901; 87635; 96360; 99284

== ENCOUNTER 2021-10-09 13:32 | Outpatient (REF) | payer MEDICAID, SELFPAY ==
[2021-10-09 15:07] LABS: Hematocrit 41.1 % (37.0-47.0); Hemoglobin 13.2 g/dl (12.0-16.0); Mean Corpuscular HGB Conc 32.1 g/dl (31.0-35.0); Mean Corpuscular Hemoglobin 25.2 pg (27.0-33.0); Mean Corpuscular Volume 78.4 fL (80.0-98.0); Mean Platelet Volume 9.8 fL (9.4-12.3); Platelet Count 331 X10*3/uL (160-400); Red Blood Count 5.24 X10*6/uL (4.20-5.50); Red Cell Distribution Width 15.8 % (11.0-16.0); White Blood Count 11.8 X10*3/uL (4.8-10.8)
[2021-10-09 16:25] LABS: Amphetamine Screen Urine Not Detected (Not Detect); Barbiturates, Urine Not Detected (Not Detect); Benzodiazepines Screen Urine Not Detected (Not Detect); Cannabinoid Screen Urine Not Detected (Not Detect); Cocaine Screen Urine Not Detected (Not Detect); Fentanyl, urine Not Detected (Not Detect); Opiate Screen Urine Not Detected (Not Detect); Phencyclidine Screen Urine Not Detected (Not Detect)
[2021-10-10 08:05] LABS: HBsAGNum1 0.13 S/CO (0.00-0.99); HIV AB/AG Nonreactive (Nonreactive); HIV Num 1 0.13 S/CO (0.00-0.99); Hepatitis B Surface Antigen Negative (Negative); ~HepC Num1 0.15 S/CO (0.00-0.79); ~Hepatitis C Antibody Nonreactive (Nonreactive)
[2021-10-10 08:32] LABS: Syphilis Screen Nonreactive (Nonreactive)
[2021-10-11 01:06] LABS: Rubella IgG Antibody 3.06 Index
== END 2021-10-09 13:33 | disposition home or self-care (01) ==
LOC: HO.LAB 13:32
PROVIDERS: PCP Internal Medicine Geriatric Medicine; Visit Provider Advanced Practice Midwife
DX: Z34.91 Encounter for supervision of normal pregnancy, unspecified, first trimester (principal); Z3A.09 9 weeks gestation of pregnancy
CPT/HCPCS: 80307; 85027; 86762; 86780; 86787; 86803; 86850; 86900; 86901; 87086; 87340; 87389; 99212

== ENCOUNTER 2022-07-09 09:46 | Emergency (ER) | payer MEDICAID, SELFPAY ==
[2022-07-09 10:17] VITALS: BP 128/69; PULSE 86; RESP 16; TEMP 36.6; O2SAT 100; BMI 26.5
--- NOTE | 2022-07-09 10:21 | ED.GENADULT ---
HPI - General Adult General Chief complaint: Upper Respiratory Symptoms Stated complaint: headache, sore throat Source: patient and RN notes reviewed Mode of arrival: ambulatory Limitations: no limitations History of Present Illness HPI narrative: 31-year-old female presents for evaluation of sore throat. She reports was 4 days she has had sore throat associated subjective fevers and headache. She feels congested as well. Denies any coughing or shortness of breath She reports that her niece had similar symptoms a few days ago and was ?diagnosed with a virus. ? She rates her discomfort as 7/10. The patient is able to swallow but has pain with swallowing Related Data Home Medications Medication Instructions Recorded Confirmed omeprazole 20 mg capsule,delayed 20 mg PO DAILY 09/19/21 release Previous Rx's Medication Instructions Recorded prenat.vits,darrius,bai-ybrg-oehes 1 tab PO DAILY #30 tabs 08/31/21 vitamin with calcium 1 tab PO DAILY 90 days #90 tabs 10/02/21 no.72-iron 27 mg-folic acid 1 mg tablet ( Vitamins Plus Low Iron) penicillin V potassium 500 mg 500 mg PO TID 7 days #21 tabs 07/09/22 tablet Allergies Allergy/AdvReac Type Severity Reaction Status Date / Time No Known Allergies Allergy Verified 10/09/21 13:39 Review of Systems Constitutional: Constitutional: Reports as per HPI, Denies chills, Denies fatigue, Reports fever(s) and Reports headache(s) ENT: Reports headache(s), Reports sore throat and Denies throat swelling Cardiovascular: Cardiovascular: Denies chest pain and Denies dyspnea Respiratory: Respiratory: Denies cough and Denies dyspnea Gastrointestinal: Gastrointestinal: Denies abdominal pain, Denies constipation and Denies vomiting Genitourinary: Genitourinary: Denies dysuria Neurologic: Reports headache(s) Endocrine: Endocrine: Denies fatigue Allergic/Immunologic: Allergic/Immunologic: Denies throat swelling PMFSH Past Medical History Medical History No known health problems Social History Social History (Updated 10/09/21 @ 13:43 by Ayesha Jamil LPN) Household Members: Significant Other Housing: Apartment Are you a primary laboratory animal care veterinarian to a significant other at home: No Do you presently have visiting nurse or other home services: No Alcohol intake: never Patient Tobacco Use Status: Never used Tobacco Special lizett needs: No Agree to transfusion: Yes Advance Directives: No Sexual orientation: Straight/Heterosexual Gender identity: Female Physical Exam ED Vital Signs: Vital Signs - 24 hr 07/09/22 10:17 Temperature 97.9 F Pulse Rate 86 Respiratory Rate 16 Blood Pressure 128/69 Pulse Oximetry 100 Oxygen Delivery Method Room Air BMI result Body Mass Index 26.5 Const General: healthy appearing, comfortable, no acute distress, alert and awake Nutritional Appearance: well nourished Orientation/consciousness: patient oriented x3 HENMT Other: Patient has some mild erythema to the posterior pharynx. No clear exudate, no evidence of peritonsillar abscess. Airway is widely patent, normal exam in a Head: Yes normocephalic and Yes atraumatic Mouth: Normal oral and palatal mucosa present Eyes Eyelids: Yes eyelids normal Conjunctivae: conjunctivae normal Sclerae: sclerae normal Corneas: corneas normal Pupils: Equal, round and reactive pupils present EOM: EOMs intact bilaterally Resp Effort & Inspection: normal respiratory effort, able to speak in complete sentences, no audible wheezes and not labored Skin General skin exam: no rashes or lesions noted and elasticity normal Lesions: no lesions Rashes: no rashes Neuro General: patient oriented x3 Cranial nerves: Yes Equal, round and reactive pupils present Extrem General: Yes full ROM Course Course Course Narrative: RME- 31-year-old female who denies any past medical history presents for evaluation of congestion, sore throat, headache. Reports her niece was sick with similar symptoms but was ?told that she has a virus. ? The patient reports a negative COVID test at home. Patient's vital signs are stable, Medical Decision Making Medical Decision Making [facility] Narrative: Patient complaining of sore throat and flu-like symptoms. A viral panel and strep throat test were ordered. Differential Diagnosis Pharyngitis COVID-19 Influenza Strep pharyngitis Upper respiratory infection Lab Data Labs: Lab Results 07/09/22 07/09/22 Range/Units 10:38 10:38 Influenza Type A (PCR) NEGATIVE (Negative) Influenza Type B (PCR) NEGATIVE (Negative) RSV RNA Qual (PCR) NEGATIVE (Negative) SARS-CoV-2 RNA (RT-PCR) NEGATIVE (Negative) S. pyogenes GrpA ROSINA Positive A (Negative) Discharge Plan Discharge Clinical Impression: Acute streptococcal pharyngitis Patient Disposition: Home, Self-Care Instructions: Strep Throat (ED) Additional Instructions: You tested positive for strep throat. Take Penicillin 3 times daily for the next 7 days You may also use Motrin or Tylenol for discomfort Prescriptions: New penicillin V potassium 500 mg tablet 500 mg PO TID 7 Days Qty: 21 0RF No Action Vitamin Plus Low Iron 27 mg iron- 1 mg tablet 1 tab PO DAILY 90 Days Qty: 90 3RF prenat.vits,darrius,oya-quyk-jqmti Tablet 1 tab PO DAILY Qty: 30 0RF omeprazole 20 mg capsule,delayed release(DR/EC) 20 mg PO DAILY Interventions: ED Discharge Assessment Last Done: 07/09/22 12:00
[2022-07-09 10:55] LABS: IDNOW Serial# 6674DD1D; Strep A Nucleic Acid Positive (Negative)
[2022-07-09 11:20] LABS: Influenza A PCR NEGATIVE (Negative); Influenza B PCR NEGATIVE (Negative); Resp Syncy Virus RNA Qual PCR NEGATIVE (Negative); SARS COV2 PCR INHOUSE NEGATIVE (Negative)
== END 2022-07-09 12:07 | disposition home or self-care (01) ==
PROVIDERS: Physician Assistant; Emergency Provider Student in an Organized Health Care Education/Training Program; PCP Internal Medicine Geriatric Medicine
DX: J02.0 Streptococcal pharyngitis (principal); R51.9 Headache, unspecified; R50.9 Fever, unspecified; Z20.822 Contact with and (suspected) exposure to COVID-19; Z20.828 Contact with and (suspected) exposure to other viral communicable diseases; Z79.899 Other long term (current) drug therapy
CPT/HCPCS: 0241U; 87651; 99282; 99283

== ENCOUNTER 2022-12-14 20:39 | Outpatient (REF) | payer MEDICAID, SELFPAY ==
[2022-12-14 21:05] LABS: Appearance Urine Clear; Color Urine Yellow; Glucose Urine UA Negative (Negative); Leukocyte Esterase Urine Negative (Negative); Nitrite Urine Negative (Negative); PH 5.5 (5.0-9.0); Specific Gravity - Urine 1.025 (1.005-1.025); Urine Blood Negative (Negative); Urine Ketones Negative (Negative); Urine Protein Negative (Neg-Trace)
== END 2022-12-14 20:40 | disposition home or self-care (01) ==
LOC: HO.HHCLNP 20:39
PROVIDERS: Visit Provider Family Medicine
DX: N39.0 Urinary tract infection, site not specified (principal)
CPT/HCPCS: 81003

== ENCOUNTER 2023-09-11 12:40 | Emergency (ER) | payer OTHER, SELFPAY ==
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
[2023-09-11 12:42] VITALS: BP 145/93; PULSE 76; RESP 19; TEMP 36.6; O2SAT 98; BMI 30.1
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
[2023-09-11 14:32] VITALS: BP 109/74; PULSE 73; RESP 18; TEMP 36.2; O2SAT 99
== END 2023-09-11 14:33 | disposition home or self-care (01) ==
PROVIDERS: Emergency Provider Emergency Medicine; PCP Internal Medicine Geriatric Medicine
DX: Z04.1 Encounter for examination and observation following transport accident (principal); M54.50 Low back pain, unspecified; M54.6 Pain in thoracic spine
CPT/HCPCS: 72072; 72100; 99283

== ENCOUNTER 2023-12-01 19:44 | Outpatient (REF) | payer OTHER, SELFPAY ==
--- NOTE | ~2023-12-01 | MR_ITS ---
MR THORACIC SPINE WITHOUT CONTRAST CLINICAL INFORMATION: Chronic pain. COMPARISON: Thoracic spine radiographs September 11, 2023. TECHNIQUE: MRI of the thoracic spine was obtained using routine sequences without contrast. FINDINGS: Transitional anatomy with 11 rib-bearing thoracic-type vertebral bodies. Thoracic alignment is normal. Vertebral body heights are maintained. The disc volumes are preserved. There is no bone marrow edema. There are no acute fractures. Bone marrow signal is homogenous and normal. Thoracic cord morphology is normal. and there are no thoracic cord signal changes. There are no abnormal flow voids adjacent to the thoracic spinal cord. No significant thoracic disc herniations. No central canal stenosis and no foraminal stenosis within the thoracic spine. The conus terminates at the L1 level. Stable right upper pole renal scarring when compared to the abdominal CT dated August 22, 2012. MR/MR thoracic spine wo con IMPRESSION: * Unremarkable MRI of the thoracic spine. * Stable chronic right upper pole renal scarring when compared to the abdominal CT dated August 22, 2012. Electronically signed by: Go Lebron MD 01/08/2024 06:45 AM EDT
== END 2023-12-01 19:45 | disposition home or self-care (01) ==
LOC: HO.MRI 19:44
PROVIDERS: PCP Internal Medicine Geriatric Medicine; Visit Provider Student in an Organized Health Care Education/Training Program
DX: M54.6 Pain in thoracic spine (principal); G89.29 Other chronic pain
CPT/HCPCS: 72146

== ENCOUNTER 2024-07-04 10:52 | Outpatient (REF) | payer OTHER, SELFPAY ==
[2024-07-04 12:06] LABS: Estimated Average Glucose 117 mg/dL; Hemoglobin A1C 131.4479 umol/L; Hemoglobin A1c % 5.7 % (<6.0); Total Hemoglobin (HGBA1C) 3408.4834 umol/L
[2024-07-04 12:36] LABS: Cholesterol 180 mg/dL (<200); HDL Cholesterol 30 mg/dL (>40); LDL Cholesterol Calculated 101 mg/dL (<100); Triglycerides 248 mg/dL (<150)
[2024-07-04 12:45] LABS: TSH reflex Free T4 1.35 uIU/mL (0.32-4.0)
--- OUTSIDE RECORDS SUMMARY | 2024-07-04 13:10 | XMS_ITS | Encounter Summary ---
Author Organization [employer] Address [address] [place] [address] [address] [place] [address] Care Team Providers Care Limousine Rental Clerk Name Role Phone Name, Oliverio CALVIN Primary Care Provider [phone] Reason for Visit * Reason Comments Routine Cleaning Dental Exam Encounter Details Date Type Department Care Team ([facility] st Contact Info) Description 06/27/2024 2:00 PM EST Office Visit [facility] ADULT DENTAL [address], [place] [phone] Layla Curry [address] [place] [address] Encounter for dental examination (Primary Dx); Dental calculus; Defective dental baptist; Dental plaque Social History Tobacco Use Types Packs/Day Years Used Date Smoking Tobacco: Never Smokeless Tobacco: Never Comments No Sex and Gender Information Value Date Recorded Sex Assigned at Female 03/09/2022 10:14 AM EDT Legal Sex Female 10:14 AM EDT Gender Identity Female 03/09/2022 10:14 AM EDT Sexual Orientation Straight 03/09/2022 10 :14 AM EDT documented as of this encounter Last Filed Vital Signs Vital Sign Reading Time Taken Comments Blood Pressure 120/82 06/27/2024 1:00 PM EST Pulse 48 06/27/2024 1:00 PM EST Temperature - - Respiratory Rate - - Oxygen Saturation - - Inhaled Oxygen Concentration - - Weight - - Height - - Body Mass Index - - documented in this encounter Progress Notes * Layla Curry - 06/27/2024 2:00 PM EST Patient ID: Mirna Flores is a 33 y.o. female. Time Out: Timeout Date: 06/27/24 (prophy and exam), Timeout Time: 1414 Location: [facility] Tooth: Maxilla and Mandible Procedure: Exam, X-rays, and Prophylaxis Verified the above with patient, transition assistant, and provider. Confirmed via patient's chart, intraorally and by radiographs. Transportation Maintenance Specialist: not applicable Medical Hx: Vitals: Blood pressure 120/82, pulse (!) 48. Medications, Med Hx reviewed with patient and updated in chart. Treatment Provided Dental procedures in this visit D1110 - PROPHYLAXIS - ADULT (Completed) Service provider: Layla Curry Billing provider: Sissy Cruz DDS [id number] - PERIODIC ORAL EVALUATION - ESTABLISHED PATIENT D0220 - INTRAORAL - PERIAPICAL FIRST RADIOGRAPHIC IMAGE (Completed) Service provider: Layla Curry Billing provider: Sissy Cruz DDS [id number] - INTRAORAL - PERIAPICAL EACH ADDITIONAL RADIOGRAPHIC IMAGE (Completed) Service provider: Layla Curry Billing provider: Sissy Cruz DDS [id number] - INTRAORAL - PERIAPICAL EACH ADDITIONAL RADIOGRAPHIC IMAGE (Completed) Service provider: Layla Curry Billing provider: Sissy Cruz DDS [id number] - INTRAORAL - PERIAPICAL EACH ADDITIONAL RADIOGRAPHIC IMAGE (Completed) Service provider: Layla Curry Billing provider: Sissy Cruz DDS D0274 - BITEWINGS - 4 RADIOGRAPHIC IMAGES (Completed) Service provider: Layla Curry Billing provider: Sissy Cruz DDS [id number] - CASE PRESENTATION, DETAILED AND EXTENSIVE TREATMENT PLANNING (Completed) Service provider: Layla Curry Billing provider: Sissy Cruz DDS [id number] - ORAL HYGIENE INSTRUCTIONS (Completed) Service provider: Layla Curry Billing provider: Sissy Cruz DDS Instruments Used: Ultrasonic Scalers, Hand Scalers, and Prophy angle Fluoride: 5% NaF varnish applied and POI given Oral Cancer Screening: No lesions Head/Neck Exam: No Lesions Calculus: Light, Generalized, and some subgingival Plaque: Light and Localized, posteriors Stain: None Bleeding: Generalized light to moderate Gingiva: healthy with mild inflammation OH: Fair Perio Chart: Due 09/2024 Oral hygiene instructions provided to patient including brushing technique and flossing. Recommendations: [place] two times daily, modified allan technique, Floss daily, Electric toothbrush Recall Frequency: 6 mo NV: 6 month recall Prophy completed by [employer] student BRANDY Romero Hygienist: Layla Curry RDH Cosigned by Sissy Cruz DDS at 06/28/2024 10:05 AM EST Associated attestation - Sissy Cruz DDS - 06/28/2024 10:05 AM EST I have reviewed the documentation and dental procedures made by the rendering provider, Layla Vasquez RDH , and approve their chart entries for this visit. Sissy Cruz DDS * Sissy Cruz DDS - 06/27/2024 2:00 PM EST Dental procedures in this visit D1110 - PROPHYLAXIS - ADULT (Completed) Service provider: Layla Curry Billing provider: Sissy Cruz DDS D0120 - PERIODIC ORAL EVALUATION - ESTABLISHED PATIENT D0220 - INTRAORAL - PERIAPICAL FIRST RADIOGRAPHIC IMAGE (Completed) Service provider: Layla Curry Billing provider: Sissy Cruz DDS [id number] - INTRAORAL - PERIAPICAL EACH ADDITIONAL RADIOGRAPHIC IMAGE (Completed) Service provider: Layla Curry Billing provider: Sissy Cruz DDS [id number] - INTRAORAL - PERIAPICAL EACH ADDITIONAL RADIOGRAPHIC IMAGE (Completed) Service provider: Layla Curry Billing provider: Sissy Cruz DDS [id number] - INTRAORAL - PERIAPICAL EACH ADDITIONAL RADIOGRAPHIC IMAGE (Completed) Service provider: Layla Curry Billing provider: Sissy Cruz DDS D0274 - BITEWINGS - 4 RADIOGRAPHIC IMAGES (Completed) Service provider: Layla Curry Billing provider: Sissy Cruz DDS [id number] - CASE PRESENTATION, DETAILED AND EXTENSIVE TREATMENT PLANNING (Completed) Service provider: Layla Curry Billing provider: Sissy Cruz DDS D1330 - ORAL HYGIENE INSTRUCTIONS (Completed) Service provider: Layla Curry Billing provider: Sissy Cruz DDS Patient ID: Mirna Flores is a 33 y.o. female. Time Out: Timeout Date: 06/27/24 (prophy and exam), Timeout Time: 1414 Location: [facility] Tooth: Maxilla and Mandible Procedure: Exam, X-rays, and Prophylaxis Verified the above with patient, transition assistant, and provider. Confirmed via patient's chart, intraorally and by radiographs. Transportation Maintenance Specialist: not applicable Chief Complaint Patient presents with Routine Cleaning Dental Exam Medical Hx: Vitals: Blood pressure 120/82, pulse (!) 48. History reviewed. No pertinent past medical history. Medications: Outpatient Encounter Medications as of 06/27/2024 Medication Sig Dispense Refill cyclobenzaprine (Flexeril) 10 MG tablet Take 1 tablet (10 mg) by mouth at bedtime for 10 days. 10 tablet 0 [DISCONTINUED] omeprazole (PriLOSEC) [address] capsule TAKE 1 CAPSULE BY MOUTH EVERY DAY 30 MINUTES TO 1 HOUR BEFORE A MEAL 90 capsule 0 No facility-administered encounter medications on file as of 06/27/2024. Objective HPI Soft Tissue Exam No findings documented this visit Head and Neck Exam: Lymph Nodes, Lips, Palate, Buccal Mucosa, Floor of Mouth, Tongue, Tonsils, Alveolar Ridges, Oropharynx, Salivary Ducts, and Vestibules - no significant findings observed OCS: negative Dental Exam Radiographic Interpretation: Associated radiographs for today's visit were reviewed and finding(s) were discussed with the patient. Findings include: plaque, calculus, moderate BOP, overhang composite #13 Hard Tissue Exam: Fractured restorations/teeth Perio Dx: fair OH, plaque, calculus, moderate BOP Reference tooth chart for additional findings. Oral Cancer Risk: Low Risk Oral Hygiene Instructions: [place] two times daily, modified allan technique, Floss daily, Soft bristle toothbrush, [place] Tongue Caries Risk Assessment: Low- no risk factor Assessment/Plan Edilberto #13- re- make Patient tolerated procedure well, all questions answered and expressed understanding. Dismissed in good condition. NV: Edilberto #13 Steward/Stewardess Economy Class: Layla Curry Dentist: Sissy Cruz DDS documented in this encounter Plan of Treatment Upcoming Encounters Date Type Department Care Team (Late st Contact Info) Description 07/25/2024 9:30 AM EDT Office Visit [facility] [address] [place] [address] Sissy Cruz DDS [address] [place] [address] 09/20/2024 9:30 AM EDT Office Visit [facility] MEDICINE [address] [place] [address] Name, MD Oliverio [address] [place] [address] 01/02/2025 3:00 PM EDT Office Visit [facility] ADULT D[facility] [address] [place] [address] Vicki Rhodes Scheduled Orders Name Type Priority Associated Diagnoses Orde r Schedule PROPHYLAXIS - ADULT Dental Routine 1 Occ urrences starting 06/27/2024 ORAL HYGIENE INSTRUCTIONS Dental Routine 1 Occurrences starting 06/27/2024 COMPREHENSIVE PERIODONTAL EVALUATION - NEW OR ESTABLISHED PATIENT Dental Routine 1 Occurrence s starting 06/27/2024 13 MO 13 MO RESIN-BASED COMPOSITE - 2 SURF, POSTERIOR Dental Routine [address] arting 06/27/2024 documented as of this encounter Procedures Procedure Name Priority Date/Time Associated Diagnosis Comments PROPHYLAXIS - ADULT Routine 06/27/2024 2 :00 PM EST PERIODIC ORAL EVALUATION - ESTABLISHED PATIENT Routine 06/27/2024 2:00 PM EST Encounter for dental examination Dental calculus Defective dental baptist Dental plaque ORAL HYGIENE INSTRUCTIONS Routine 06/27/2024 2:00 PM EST INTRAORAL - PERIAPICAL FIRST RADIOGRAPHIC IMAGE Routine 06/27/2024 2:00 PM EST INTRAORAL - PERIAPICAL EACH ADDITIONAL RADIOGRAPHIC IMAGE Routine 06/27/2024 2:00 PM EST INTRAORAL - PERIAPICAL EACH ADDITIONAL RADIOGRAPHIC IMAGE Routine 06/27/2024 2:00 PM EST INTRAORAL - PERIAPICAL EACH ADDITIONAL RADIOGRAPHIC IMAGE Routine 06/27/2024 2:00 PM EST CASE PRESENTATION, DETAILED AND EXTENSIVE TREATMENT PLANNING Routine 06/27/2024 2:00 PM EST BITEWINGS - 4 RADIOGRAPHIC IMAGES Routine 06/27/2024 2:00 PM EST documented in this encounter Visit Diagnoses Diagnosis Encounter for dental examination- Primary Dental calculus Accretions on teeth Defective dental baptist Unspecified unsatisfactory baptist of tooth Dental plaque Accretions on teeth documented in this encounter Care Teams Limousine Rental Clerk Relationship Specialty Start Date End Date Name, MD Oliverio [address] [place] [id number] PCP - General Family Medicine 07/06/18 documented as of this encounter
--- OUTSIDE RECORDS SUMMARY | 2024-07-04 13:10 | XMS_ITS | Encounter Summary ---
Author Organization [email or web address] Address [address] [facility] [place] [address] Care Team Providers Care Waterworks Supervisor Name Role Phone Name, Oliverio CALVIN Primary Care Provider [phone] Encounter Details Date Type Department Care Team (Latest Contact Info) Description 07/04/2024 Travel Social History Tobacco Use Types Packs/Day Years Used Date Smoking Tobacco: Never Smokeless Tobacco: Never Alcohol Use Standard Drinks/Week Comments Not Currently 0 (1 standard drink = 0.6 oz pur e alcohol) Housing Stability Answer Date Recorded What is your housing situation today? I have benjadon bansal 07/04/[address] you li ve. Do you have problems with any of the following? None of the above 07/04/2024 Food Insecurity Answer Date Recorded Within the past 12 months, y ou worried that your food would run out before you got money to buy more: Never True 07/04/2024 Within the past 12 months,th e food you bought just didn't last and you didn't have enough money to get more: Never True Transportation Answer Date Recorded In the past 12 months, has l ack of transportation kept you from medical appts, meetings, work or from getting things needed for daily living? No 07/04/2024 Utilities Answer Date Recorded In the past 12 months, has t he electric, gas, oil or water company threatened to shut off services in your home? No 07/04/2024 Internet Access Answer Date Recorded Internet Access Q1 Yes 07/04/2024 Internet Access Q2 Not on file 07/04/2024 Comments No Sex and Gender Information Value Date Recorded Sex Assigned at Female 03/09/2022 10:14 AM EDT Legal Sex Female 10:14 AM EDT Gender Identity Female 03/09/2022 10:14 AM EDT Sexual Orientation Straight 03/09/2022 10 :14 AM EDT documented as of this encounter Plan of Treatment Upcoming Encounters Date Type Department Care Team (Late st Contact Info) Description 07/25/2024 9:30 AM EDT Office Visit [facility]ULT [facility] [address] [place] [address] Sissy Cruz DDS [address] [place] [address] 09/20/2024 9:30 AM EDT Office Visit [facility] [address] [place] [address] Name, MD Oliverio [address] [place] [phone] 01/02/2025 3:00 PM EDT Office Visit [facility] [address] [place] [address] Vicki Rhodes documented as of this encounter Visit Diagnoses Not on filedocumented in this encounter Care Teams Waterworks Supervisor Relationship Specialty Start Date End Date Name, MD Oliverio [address] [place] [phone] PCP - General Family Medicine 07/06/18 documented as of this encounter
--- OUTSIDE RECORDS SUMMARY | 2024-07-04 13:10 | XMS_ITS | Encounter Summary ---
Author Organization [employer] Address [address] [place] [address] 7t [place] [address] Care Team Providers Care Inker Machine Name Role Phone Name, Oliverio CALVIN Primary Care Provider [phone] Reason for Visit * Reason Onset Date Comments Appointment Request 06/29/2024 Encounter Details Date Type Department Care Team ([facility] Contact Info) Description 06/29/2024 Telephone [facility] [address] [place], [place] [phone] Name, MD Oliverio [address] [place] [address] Appointment Request Social History Tobacco Use Types Packs/Day Years Used Date Smoking Tobacco: Never Smokeless Tobacco: Never Comments No Sex and Gender Information Value Date Recorded Sex Assigned at Female 03/09/2022 10:14 AM EDT Legal Sex Female 10:14 AM EDT Gender Identity Female 03/09/2022 10:14 AM EDT Sexual Orientation Straight 03/09/2022 10 :14 AM EDT documented as of this encounter Miscellaneous Notes * Telephone Encounter - Halle Mcdaniels - 06/29/2024 2:45 PM EST Tc from pt requesting PE. Pt denied any concerns. Would like a routine visit and lab work. Technical Associate advise will send a message to team. Contact pt at [phone] documented in this encounter Plan of Treatment Upcoming Encounters Date Type Department Care Team ([facility] Contact Info) Description 07/25/2024 9:30 AM EDT [facility] Visit [facility] [address] [place] [address] Sissy Cruz, FINNS [address] [place] [address] 09/20/2024 9:30 AM EDT Office Visit [facility] [address] [place] [address] Name, MD Oliverio [address] [place] [address] 01/02/2025 3:00 PM EDT Office Visit [facility] ADULT DENT[facility] [address] [place] [address] Vicki Rhodes documented as of this encounter Visit Diagnoses Not on filedocumented in this encounter Care Teams Inker Machine Relationship Specialty Start Date End Date Name, MD Oliverio [address] [place] [phone] PCP - General Family Medicine 07/06/18 documented as of this encounter
--- OUTSIDE RECORDS SUMMARY | 2024-07-04 13:10 | XMS_ITS | Clinical Summary ---
Author Organization [facility] Address [address] [place] [address] Care Team Providers Care Supervisor [employer] Name Role Phone Unavailable Primary Care Provider Unavailabl e Social History Tobacco Use Types Packs/Day Years Used Date Smoking Tobacco: Never Assessed Comments Unknown Sex and Gender Information Value Date Recorded Sex Assigned at Not on file Legal Sex Female 1:37 PM EDT Gender Identity Not on file Sexual Orientation Not on file Plan of Treatment Health Maintenance Due Date Last Done Comments DTaP,Tdap,and Td Vaccines (1 - Tdap) 11/02/2010 Hepatitis B Vaccines (1 of 3 - 19+ 3-dose series) 11/02/2010 Cervical Cancer Screening: P ap Smear 11/02/2012 Depression Screening 12/01/2023 HIV Screening 12/01/2023 Hepatitis C Screening 12/01/2023 Social Influencers of Health Screening 12/01/2023 COVID-19 Vaccine ( - 2023-2 5 season) 2024 Influenza Vaccine (#1) 2024 HIB Vaccines Aged Out No longer eligi ble based on patient's age to complete this topic HPV Vaccines Aged Out No longer eligi ble based on patient's age to complete this topic Hepatitis A Vaccines Aged Out No long er eligible based on patient's age to complete this topic IPV Vaccines Aged Out No longer eligi ble based on patient's age to complete this topic MMR Vaccines Aged Out No longer eligi ble based on patient's age to complete this topic Meningococcal ACWY Vaccine Aged Out N o longer eligible based on patient's age to complete this topic Meningococcal B Vacine Aged Out No lo nger eligible based on patient's age to complete this topic Pneumococcal Vaccine: Pediat rics (0 to 5 Years) and At-Risk Patients (6 to 64 Years) Aged Out No longer eligible b ased on patient's age to complete this topic RSV Immunization Patients Un farnaz 20 months Aged Out No longer eligible b ased on patient's age to complete this topic Varicella Vaccines Aged Out No longer eligible based on patient's age to complete this topic
--- OUTSIDE RECORDS SUMMARY | 2024-07-04 13:10 | XMS_ITS | Clinical Summary ---
Author Organization [employer] Address 75 [facility] 7t [place] [address] Care Team Providers Care Hot Press Operator Name Role Phone Name, Oliverio CALVIN Primary Care Provider [phone] Allergies No known active allergies Medications cyclobenzaprine (Flexeril) 10 MG tablet Take 1 tablet (10 mg) by mouth at bedtime for 10 days. 10 tablet 10/01/19 24 Active omeprazole (PriLOSEC) [address] capsuleIndicati ons:Gastroesoph ageal reflux disease without esophagitis TAKE 1 CAPSULE BY MOUTH EVERY DAY 30 MINUTES TO 1 HOUR BEFORE A MEAL 90 capsule 06/27/19 25 Active 27-1 MG tablet Take 1 tablet by mouth Once per day. 30 tablet 11 07/04/19 25 026 Active omeprazole (PriLOSEC) [address] capsuleIndicati ons:Gastroesoph ageal reflux disease without esophagitis TAKE 1 CAPSULE BY MOUTH EVERY DAY 30 MINUTES TO 1 HOUR BEFORE A MEAL 90 capsule 10/01/19 24 025 Discontinued(Re order (will not trigger notification to Pharmacy)) Active Problems Problem Noted Date Diagnosed Date Gastroenteritis 02/15/2024 Assessment & Plan (02/15/2024 5:13 PM EDT): -likely viral gastroenteritis -no evidence of dehydration on exam -no evidence of acute abdomen -supportive care with fluids -note given for work. -ER precautions discussed Acute streptococcal pharyngitis 01/18/2024 Back pain 01/18/2024 Bacterial vaginosis 01/18/2024 COVID-19 01/18/2024 Dysuria 01/18/2024 Early stage of 01/18/2024 Upper respiratory infection 01/18/2024 Vaginal bleeding affecting early 01/17 Yeast infection 01/18/2024 Urinary tract infection 01/18/2024 Migraine 12/14/2022 Urinary tract infection without hematuria 2022 Encounters Date Type Department Care Team Description 07/04/2024 10:00 AM EST Procedure Visit [facility] [address] [place] [address] Eunice Mahmood CNM Cervical cancer screening (Primary Dx); PCOS (polycystic ovarian syndrome); Screening for diabetes mellitus; Screening for lipid disorders; Screening examination for venereal disease; Dysuria; Procreative management 07/04/2024 Travel 06/29/[address] [address] [place] Appointment Request 06/29/[address] [address] [place] 06/29/[address] [address] Oliverio Wong MD Appointment Request 06/27/2024 2:00 PM EST Office Visit [facility] ADULT [facility] [address] [place] [phone] Layla Curry Encounter for dental examination (Primary Dx); Dental calculus; Defective dental restorationist; Dental plaque 06/23/2024 Refill [facility] [address] [place] [address] Aretha Castillo MD Gastroesophageal reflux disease without esophagitis 06/23/2024 Telephone [facility] [address] [place] [phone] Layla Curry from Last 3 Months Immunizations Name Administration Dates Next Due DTP 06/05/1996, 3,05/29/1992,03/27,02/02/1992 HPV, Quadrivalent 01/28/2010,01/24/2009,12/30/19 08 Hep A, Adult 10/11/2017 Hep B, Adolescent or Pediatric 05/29/1992,1991 Hep B, adult 10/11/2017 Hib (HbOC) 04/22/1993, 3,03/27/1992,02/01 IPV 06/07/1998, 3,03/27/1992,02/01 Influenza injectable quadriv alent IIV4 with preservative 03/31/2019,01/28/2017 Influenza, IIV3, injectable 01/28/2010 Influenza, Split (incl. jackson fied surface antigen) 04/18/2012 MMR 06/05/1996,04/22/1993 Meningococcal MCV4P ACYW-135 12/30/2007 TD (adult), 2 Lf tetanus tox oid, preservative free, adsorbed 12/12/2002 Tdap 01/28/2017 Varicella 12/15/2002,12/12/1992 Family History Medical History Relation Name Comments Breast cancer Father's Sister late 40s Relation Name Status Comments Father's Sister Social History Tobacco Use Types Packs/Day Years Used Date Smoking Tobacco: Never Smokeless Tobacco: Never Tobacco Cessation:Counseling Given: Not Answered Alcohol Use Standard Drinks/Week Comments Not Currently 0 (1 standard drink = 0.6 oz pur e alcohol) Housing Stability Answer Date Recorded What is your housing situation today? I have benja bansal 07/04/[address] you [...] Orientation Straight 03/09/2022 10 :14 AM EDT Last Filed Vital Signs Vital Sign Reading Time Taken Comments Blood Pressure 132/86 07/04/2024 9:54 AM EST Pulse 82 07/04/2024 9:54 AM EST Temperature 36.2 ??C (97.1 ??F) 07/04/2024 9:54 AM ES T Respiratory Rate 20 07/04/2024 9:54 AM EST Oxygen Saturation 98% 07/04/2024 9:54 AM EST Inhaled Oxygen Concentration - - Weight 86.7 kg (191 lb 3.2 oz) 07/04/2024 9:54 A M EST Height 160 cm (5' 3 ) 07/04/2024 9:54 AM EST Body Mass Index 33.87 07/04/2024 9:54 AM EST Plan of Treatment Upcoming Encounters Date Type Department Care Team (Late st Contact Info) Description 07/25/2024 9:30 AM EDT Office Visit [facility] [address] [place] [phone] Sissy Cruz DDS [address] [place] [address] 09/20/2024 9:30 AM EDT Office Visit [facility] [address] [place] [phone] Name, MD Oliverio [address] [place] [address] 01/02/2025 3:00 PM EDT Office Visit [facility] [address] [place] [phone] Vicki Rhodes Health Maintenance Due Date Last Done Comments Depression Screening 1991 Alcohol/Substance Use Screening 2003 Pap Smear 11/02/2012 Cervical Cancer Screening 11/02/2021 HPV/Cotest 11/02/2021 COVID-19 Vaccine ( season) 2024 Influenza Vaccine (#1) 2024 9, 01/28/2017, 04/18/2012, Additional history exists Dental Oral Exam 12/26/2024 06/27/2024, 08/03/2023 Dental Prophylaxis 12/26/2024 06/27/2024, 09/23/2023 Dental X-Ray: Bitewings 06/28/2025 06/27/19, 08/03/2023, 06/04/2023 Diabetes: Hemoglobin A1C 07/04/2025 07/04/2024 Family Planning (PISQ) 07/04/2025 07/04/2024 SDOH Screening 07/04/2025 07/04/2024 Tobacco Screening 07/04/2025 07/04/2024 Dental X-Ray: Full Mouth 08/03/2026 08/03/2023 DTaP/Tdap/Td Vaccines (7 - Td or Tdap) 01/28/2027 01/28/2017, 12/12/2002, 06/05/1996, Additional history exists Zoster Vaccines (1 of 2) 11/02/2041 RSV Patients and Patients Aged 60 years or older (1 - 1-dose 75+ series) 11/02/2066 HIB Vaccines Completed 04/22/1993, 05/11, 03/27/1992, Additional history exists IPV Vaccines Completed 06/07/1998, 04/09, 03/27/1992, Additional history exists Meningococcal Vaccine Completed 12/30/2007 HPV Vaccines Completed 01/28/2010, 01/08, 12/30/2007 Hepatitis A Vaccines Aged Out 10/11/2017 No long er eligible based on patient's age to complete this topic Hepatitis B Vaccines Completed 10/11/2017, 05/29/1992, 1991, Additional history exists HIV Screening Completed 10/09/2021 Hepatitis C Screening Completed 10/09/2021 Pneumococcal Vaccine: Pediatrics (0 to 5 Years) and At-Risk Patients (6 to 49) Years) Aged Out No longer eligible based on patient's age to complete this topic RSV under 20 months Aged Out No longe r eligible based on patient's age to complete this topic Rotavirus Vaccines Aged Out No longer eligible based on patient's age to complete this topic Procedures Procedure Name Priority Date/Time Associated Diagnosis Comments LIPID PANEL, STANDARD Routine 07/04/2024 10:55 AM EST PCOS (polycystic ovarian syndrome) Screening for lipid disorders HEMOGLOBIN A1C Routine 07/04/2024 10:55 AM EST PCOS (polycystic ovarian syndrome) Screening for diabetes mellitus TSH W/REFLEX TO FT4 Routine 07/04/2024 1 0:55 AM EST PCOS (polycystic ovarian syndrome) POCT URINALYSIS DIPSTICK Routine 07/04/2024 10:30 AM EST Dysuria ORAL HYGIENE INSTRUCTIONS Routine 06/27/2024 2:00 PM EST CASE PRESENTATION, DETAILED AND EXTENSIVE TREATMENT PLANNING Routine 06/27/2024 2:00 PM EST PERIODIC ORAL EVALUATION - ESTABLISHED PATIENT Routine 06/27/2024 2:00 PM EST Encounter for dental examination Dental calculus Defective dental restorationist Dental plaque BITEWINGS - 4 RADIOGRAPHIC IMAGES Routine 06/27/2024 2:00 PM EST INTRAORAL - PERIAPICAL EACH ADDITIONAL RADIOGRAPHIC IMAGE Routine 06/27/2024 2:00 PM EST INTRAORAL - PERIAPICAL EACH ADDITIONAL RADIOGRAPHIC IMAGE Routine 06/27/2024 2:00 PM EST INTRAORAL - PERIAPICAL EACH ADDITIONAL RADIOGRAPHIC IMAGE Routine 06/27/2024 2:00 PM EST INTRAORAL - PERIAPICAL FIRST RADIOGRAPHIC IMAGE Routine 06/27/2024 2:00 PM EST PROPHYLAXIS - ADULT Routine 06/27/2024 2 :00 PM EST INTRAORAL - COMPLETE SERIES OF RADIOGRAPHIC IMAGES Routine 08/03/2023 3:00 PM EDT Encounter for dental examination Dental caries Dental plaque ZZZ HISTORICAL HEPATITIS B SURFACE ANTIGEN* Routine 10/09/2021 2:40 PM EDT from Last 3 Months or Most Recently Relevant to Health Maintenance Results * TSH W/Reflex to FT4 (07/04/2024 10:55 AM EST) TSH reflex Free T4 1.35 0.32 - 4.0 uIU/mL [facility] Blood Venous blood specimen / Unknown 07/04/2024 10:55 AM EST 07/04/2024 11:35 AM EST Eunice Mahmood [facility] BLOOD ORDERABLES Estephanie l Result Performing Organization Address [facility] Co de Phone Number [facility] [address] [place] [phone] * Hemoglobin A1c (07/04/2024 10:55 AM EST) Hemoglobin A1c 5.7 <6.0 % [facility] Comment:Hemoglobin A1C Refer ence Range Adults: 4.8 - 6.0 % Non diabetic: < 6.0 % Goal: < 7.0 %Additional Action Suggested: > 8.0 %Note: Hemoglobin A1c results are invalid for patients with abnormal amounts of HbF. Blood transfusions may impact the HbA1c concentration in the patient sample. Estimated Average Glucose 117 mg/dL [facility] Comment:eAG = Estimated ave rage glucose which is %A1C expressed asaverage glucose, using the formula of the S5E-ZinpaeaQzftzic Glucose study (ADAG), Diabetes Care, Vol.31,#8,Dec. 2007 Blood Venous blood specimen / Unknown 07/04/2024 10:55 AM EST 07/04/2024 11:[address] [facility] Estephanie l Result Performing Organization Address [facility] Co de Phone Number [facility] [address] [place] [phone] * (ABNORMAL) Lipid Panel, Standard (07/04/2024 10:55 AM EST) Triglycerides 248(H) <150 mg/dL [facility] Comment:Desirable Triglyceri de: less than 150 mg/dLBorderline High Triglyceride 150-199 mg/dLHigh Triglyceride: 200-499 mg/dLVery High Triglyceride: greater than or equal to 5OO mg/dL Cholesterol 180 <200 mg/dL [facility] Comment:Desirable Cholestero l: less than 200 mg/dLBorderline High Cholesterol: 200-239 mg/dLHigh Cholesterol: greater than 239 mg/dL LDL Cholesterol Calculated 101(H) <100 mg/dL [facility] Comment:Desirable LDL: less than 100 mg/dLNear Optimal/Above Optimal LDL: 110- 129 mg/dLBorderline High LDL: 130-159 mg/dLHigh LDL: 160-189 mg/dLVery High LDL: greater than or equal to 190 mg/dL HDL Cholesterol 30(L) >40 mg/dL [facility] Comment:Desirable HDL: great er than 40 mg/dL Note: This HDL assay may give artificially low results in patients with liver disease. Blood Venous blood specimen / Unknown 07/04/2024 10:55 AM EST 07/04/2024 11:35 AM EST Eunice Mahmood [facility] BLOOD ORDERABLES Estephanie l Result [facility] [address] [place] [phone] * (ABNORMAL) POCT urinalysis dipstick manually resulted (07/04/2024 10:30 AM EST) Color, UA Yellow Clarity, UA Clear Glucose, UA Negative Bilirubin, UA Negative Ketones, UA Negative Spec Grav, UA 1.030 Blood, UA Positive(A) Negative, None Detected Comment:large pH, UA 5.5 Protein, UA 1+ 70+ Comment:30mg Urobilinogen, UA 0.2 Leukocytes, UA Negative Negative, Rare, Trace Nitrite, UA Negative Negative, None Detected Appearance, UA yellow QC Media Lot # [id number] Lot# Expiration Date Urine 07/04/2024 10:3 0 AM EST Eunice Mahmood [facility] POINT OF CARE TEST ENTER/ EDIT ORDERABLES Final Result * HEPATITIS B SURFACE ANTIGEN* (10/09/2021 2:40 PM EDT) Hepatitis B Surface Antigen Negative Negative [facility] Hepatitis C Antibody Nonreactive Nonreactive [facility] Comment: Antibodies to HCV not detected; does not exclude early acute HCV infection. HIV AB/AG Nonreactive Nonreactive [facility] Comment: HIV-1 p24 Ag and/or HIV-1/HIV-2 Ab not detected. ?? A test result that is nonreactive does not exclude the possibility of exposure to or infection with HIV-1 and/or HIV-2. Nonreactive results in this assay for individuals with prior exposure to HIV-1 and/or HIV-2 may be due to antigen and antibody levels that are below the limit of detection of this assay. ?? The [employer] Maintenance Job Titles HIV Ag/Ab Combo assay result and supplemental assay results should be interpreted in conjunction with the patient's clinical presentation, history and other laboratory results. ??If the results are inconsistent with clinical evidence, additional testing is suggested to confirm the result. 10/09/2021 2:40 PM EDT us Marizol Gimenez HISTORICAL/NON ORDERABLE LABS Fi nal Result [facility] [address] from Last 3 Months or Most Recently Relevant to Health Maintenance Insurance HSN FULL [facility] - HSN PARTIAL (MEDICAID) Care Teams Hot Press Operator Relationship Specialty Start Date End Date Name, MD Oliverio [address] [place] [address] PCP - General Family Medicine 07/06/18
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
--- OUTSIDE RECORDS SUMMARY | 2024-07-04 13:10 | XMS_ITS | Encounter Summary ---
Author Organization [employer] Address [address] [facility] 7t [place] [address] Care Team Providers Care Foundation Engineer Name Role Phone Name, Oliverio CALVIN Primary Care Provider [phone] Reason for Visit * Reason Onset Date Comments Med Refill 06/23/2024 Encounter Details Date Type Department Care Team (Late Contact Info) Description 06/23/2024 Refill [facility] [address] [place] [address] Aretha Castillo MD [address] [place] [phone] Gastroesophageal reflux disease without esophagitis Social History Tobacco Use Types Packs/Day Years [...] Encounters Date Type Department Care Team (Late Contact Info) Description 07/25/2024 9:30 AM EDT Office Visit [facility] ADULT D[facility]AL [address] [place] [address] Sissy Cruz, DDS [address] [place] [address] 09/20/2024 9:30 AM EDT Office Visit [facility] MED[facility] [address] [place] [address] Name, MD Oliverio [address] [place] [address] 01/02/2025 3:00 PM EDT Office Visit [facility] ADULT DENTAL [address] [place] [address] Vicki Rhodes documented as of this encounter Visit Diagnoses Diagnosis Gastroesophageal reflux disease without esophagitis Esophageal reflux documented in this encounter Care Teams Foundation Engineer Relationship Specialty Start Date End Date Name, MD Oliverio [address] [place] [phone] PCP - General Family Medicine 07/06/18 documented as of this encounter
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
--- OUTSIDE RECORDS SUMMARY | 2024-07-04 13:10 | XMS_ITS | Encounter Summary ---
Author Organization [facility] Address [address] [facility] 7t [place] [address] Care Team Providers Care Weed Burner Name Role Phone Name, Oliverio CALVIN Primary Care Provider [phone] Encounter Details Date Type Department Care Team (Late Contact Info) Description 06/29/2024 Telephone [facility] MEDICINE [address] [place] [address] Estela Banks MA Social History Tobacco Use Types Packs/Day Years [...] Encounter - Estela Banks MA - 06/29/2024 3:11 PM EST . documented in this encounter Plan of Treatment Upcoming Encounters Date Type Department Care Team (Late Contact Info) Description 07/25/2024 9:30 AM EDT Office Visit [facility] ADULT DENTAL [address] [place] [address] Sissy Cruz, DDS [address] [place] [address] 09/20/2024 9:30 AM EDT Office Visit [facility] MEDICINE [address] [place] [address] Name, MD Oliverio [address] [place] [address] 01/02/2025 3:00 PM EDT Office Visit [facility] ADULT DENTAL [address] [place] [address] Vicki Rhodes documented as of this encounter Visit Diagnoses Not on filedocumented in this encounter Care Teams Weed Burner Relationship Specialty Start Date End Date Name, [place] [address] PCP - General Family Medicine 07/06/18 documented as of this encounter
--- OUTSIDE RECORDS SUMMARY | 2024-07-04 13:10 | XMS_ITS | Encounter Summary ---
Author Organization [employer] Address [address] [facility] 7t [place] [address] Care Team Providers Care System Development Manager Name Role Phone Name, Oliverio CALVIN Primary Care Provider [phone] Reason for Visit * Reason Comments Gynecologic Exam Encounter Details Date Type Department Care Team (Latest Contact Info) Description 07/04/2024 10:00 AM EST Procedure Visit [facility] MEDICINE [address] [place] [address] Eunice Mahmood CNM [address] [place] [address] Cervical cancer screening (Primary Dx); PCOS (polycystic ovarian syndrome); Screening for diabetes mellitus; Screening for lipid disorders; Screening examination for venereal disease; Dysuria; Procreative management Social History Tobacco Use Types Packs/Day Years [...] Mass Index 33.87 07/04/2024 9:54 AM EST documented in this encounter Progress Notes * Eunice Mahmood CNM - 07/04/2024 10:00 AM EST Subjective Patient ID: Mirna Flores is a 33 y.o. female who presents for pap Last pap a few years ago, unsure if abnormal. Hx PCOS. Menses have been more or less monthly recently. No prolonged, frequent or heavy bleeding. 1 AMAB partner x 5y, no safety concerns. Hoping to get. Not taking . 1 AMAB partner x 6y, no safety concerns. Partner is 27, does not have children. Mirna does not have children. No alcohol, nicotine or other drug use. No toxin exposures with work. Notes UTI symptoms x 2 days. No vaginal symptoms. Review of Systems Constitutional: Negative for chills and fever. Gastrointestinal: Negative for abdominal pain. Genitourinary: Positive for dysuria, frequency and urgency. Negative for dyspareunia, flank pain, genital sores, hematuria, menstrual problem, pelvic pain, vaginal bleeding, vaginal discharge and vaginal pain. No abnormal bleeding, no breast pain, no breast mass, no nipple discharge Musculoskeletal: Negative for back pain. Objective BP 132/86 (BP Location: Right arm, Patient Position: Sitting, BP Cuff Size: Adult) Pulse 82 Temp 97.1 ??F (36.2 ??C) (Temporal) Resp 20 Ht 5' 3 (1.6 m) Wt 191 lb 3.2 oz (86.7 kg) LMP 06/28/2024 (Approximate) SpO2 98% BMI 33.87 kg/m?? Physical Exam Constitutional: Appearance: Normal appearance. Chest: Breasts: Right: Normal. No swelling, bleeding, inverted nipple, mass, nipple discharge, skin change or tenderness. Left: Normal. No swelling, bleeding, inverted nipple, mass, nipple discharge, skin change or tenderness. Genitourinary: General: Normal vulva. Labia: Right: No rash, tenderness, lesion or injury. Left: No rash, tenderness, lesion or injury. Vagina: Normal. No signs of injury and foreign body. No vaginal discharge, erythema, tenderness, bleeding or lesions. Cervix: No cervical motion tenderness, discharge, friability, lesion, erythema, cervical bleeding or eversion. Uterus: Normal. Not enlarged and not tender. Adnexa: Right adnexa normal and left adnexa normal. Right: No mass, tenderness or fullness. Left: No mass, tenderness or fullness. Comments: Menses noted Lymphadenopathy: Upper Body: Right upper body: No supraclavicular or axillary adenopathy. Left upper body: No supraclavicular or axillary adenopathy. Neurological: Mental Status: She is alert. Psychiatric: Mood and Affect: Mood normal. Behavior: Behavior normal. Assessment/Plan Diagnoses and all orders for this visit: Cervical cancer screening - Pap Smear Cotest today. Will contact with results and plan. Repeat 5 years if normal/HPV negative. PCOS (polycystic ovarian syndrome) - Testosterone, Total, males (Adult), IA; Future - TSH W/Reflex to FT4; Future - Prolactin; Future - Hemoglobin A1c; Future - Lipid Panel, Standard; Future Menses more or less monthly. Will check labs today. Screening for diabetes mellitus - Hemoglobin A1c; Future Hx PCOS Screening for lipid disorders - Lipid Panel, Standard; Future Hx PCOS Screening examination for venereal disease - STI testing add on (NG, CT, Trich) Agrees to pap based STI testing today. Dysuria - POCT urinalysis dipstick manually resulted - Culture, Urine, Routine Menses likely accounts for blood on UA. Push fluids. Will send culture and treat positive results. Seek care if symptoms worsen before then. Procreative management Reviewed preconception counseling. sent in. Urged toxin avoidance if trying to get for both self and partner. Report missed menses. Report irregular periods. If trying for 6-12 months and not , will refer to [facility]. Other orders - 27-1 MG tablet; Take 1 tablet by mouth Once per day. documented in this encounter Plan of Treatment Upcoming Encounters Date Type Department Care Team (Late st Contact Info) Description 07/25/2024 9:30 AM EDT Office Visit [facility] ADULT DENTAL [address] [place] [address] Sissy Cruz DDS [address] [place] [address] 09/20/2024 9:30 AM EDT Office Visit [facility] MEDICINE [address] [place] [address] Name, MD Oliverio [address] [place] [address] 01/02/2025 3:00 PM EDT Office Visit [facility] ADULT DENTAL [address] [place] [address] Vicki Rhodes Scheduled Orders Name Type Priority Associated Diagnoses Orde r Schedule Pap Smear Pathology and Cytology Routine Cervical cancer screening Ordered: 07/04/2024 STI testing add on (NG, CT, Trich) Pathology and Cytology Routine Screening examination for venereal disease Ordered: 07/04/2024 Testosterone, Total, males (Adult), IA Lab Routine PCOS (polycystic ovarian syndrome) Expected: 07/04/2024 (Approximate), Expires: 07/04/2025 Prolactin Lab Routine PCOS (polycystic ovarian syndrome) Expected: 07/04/2024 (Approximate), Expires: 07/04/2025 Culture, Urine, Routine Microbiology Routine Dysuria Ordered: 07/04/2024 documented as of this encounter Procedures Procedure Name Priority Date/Time Associated Diagnosis Comments TSH W/REFLEX TO FT4 Routine 07/04/2024 1 0:55 AM EST PCOS (polycystic ovarian syndrome) HEMOGLOBIN A1C Routine 07/04/2024 10:55 AM EST PCOS (polycystic ovarian syndrome) Screening for diabetes mellitus LIPID PANEL, STANDARD Routine 07/04/2024 10:55 AM EST PCOS (polycystic ovarian syndrome) Screening for lipid disorders POCT URINALYSIS DIPSTICK Routine 07/04/2024 10:30 AM EST Dysuria documented in this encounter Results * (ABNORMAL) Lipid Panel, Standard (07/04/2024 10:55 AM EST) Triglycerides 248(H) <150 mg/dL [facility] Comment:Desirable Triglyceri de: less than 150 mg/dLBorderline High Triglyceride 150-199 mg/dLHigh Triglyceride: 200-499 mg/dLVery High Triglyceride: greater than or equal to 5OO mg/dL Cholesterol 180 <200 mg/dL [facility] Comment:Desirable Cholestero l: less than 200 mg/dLBorderline High Cholesterol: 200-239 mg/dLHigh Cholesterol: greater than 239 mg/dL LDL Cholesterol Calculated 101(H) <100 mg/dL [facility] Comment:Desirable LDL: less than 100 mg/dLNear Optimal/Above Optimal LDL: 110- 129 mg/dLBorderline High LDL: 130-159 mg/dLHigh LDL: 160-189 mg/dLVery High LDL: greater than or equal to 190 mg/dL HDL Cholesterol 30(L) >40 mg/dL [facility] Comment:Desirable HDL: great er than 40 mg/dL Note: This HDL assay may give artificially low results in patients with liver disease. Blood Venous blood specimen / Unknown 07/04/2024 10:55 AM EST 07/04/2024 11:35 AM EST [facility]AB[facility] Estephanie l Result Performing Organization Address [facility] Co de Phone Number [facility] [address] [place] [phone] * Hemoglobin A1c (07/04/2024 10:55 AM EST) Hemoglobin A1c 5.7 <6.0 % [facility] Comment:Hemoglobin A1C Refer ence Range Adults: 4.8 - 6.0 % Non diabetic: < 6.0 % Goal: < 7.0 %Additional Action Suggested: > 8.0 %Note: Hemoglobin A1c results are invalid for patients with abnormal amounts of HbF. Blood transfusions may impact the HbA1c concentration in the patient sample. Estimated Average Glucose 117 mg/dL [facility] Comment:eAG = Estimated ave rage glucose which is %A1C expressed asaverage glucose, using the formula of the [id number]-[id number] Glucose study (ADAG), Diabetes Care, Vol.31,#8,Dec. 2007 Blood Venous blood specimen / Unknown 07/04/2024 10:55 AM EST 07/04/2024 11:[address] [facility] BLOOD ORDERABLES Estephanie l Result Performing Organization Address [facility] Co de Phone Number [facility] [address] [place] [phone] * TSH W/Reflex to FT4 (07/04/2024 10:55 AM EST) TSH reflex Free T4 1.35 0.32 - 4.0 uIU/mL [facility] Blood Venous blood specimen / Unknown 07/04/2024 10:55 AM EST 07/04/2024 11:35 AM EST Eunice [facility] LAB BLOOD ORDERABLES Estephanie l Result [facility] [address] [place] [address] [phone] * (ABNORMAL) POCT urinalysis dipstick manually [...] Urine 07/04/2024 10:3 0 AM EST Eunice [facility]SON[facility] POINT OF CARE TEST ENTER/ EDIT ORDERABLES Final Result documented in this encounter Visit Diagnoses Diagnosis Cervical cancer screening- Primary Screening for malignant neoplasm of the cervix PCOS (polycystic ovarian syndrome) Polycystic ovaries Screening for diabetes mellitus Screening for lipid disorders Screening examination for venereal disease Dysuria Procreative management documented in this encounter Care Teams System Development Manager Relationship Specialty Start Date End Date Name, MD Oliverio [address] [place] [phone] PCP - General Family Medicine 07/06/18 documented as of this encounter
[2024-07-05 07:34] LABS: Prolactin 10.4 ng/mL
== END 2024-07-04 10:53 | disposition home or self-care (01) ==
LOC: HO.HHCL 10:52
PROVIDERS: Visit Provider Advanced Practice Midwife
DX: Z13.220 Encounter for screening for lipoid disorders (principal); Z13.1 Encounter for screening for diabetes mellitus; Z13.6 Encounter for screening for cardiovascular disorders; R30.0 Dysuria; E28.2 Polycystic ovarian syndrome
CPT/HCPCS: 36415; 80061; 83036; 84146; 84403; 84443; 87086

== ENCOUNTER 2024-07-04 16:41 | Outpatient (REF) | payer OTHER, SELFPAY ==
--- OUTSIDE RECORDS SUMMARY | 2024-07-04 19:51 | XMS_ITS | Encounter Summary ---
Author Organization [facility] Address [address] [facility] 7t [place] [address] Care Team Providers Care Manager Engagement Name Role Phone Name, Oliverio CALVIN Primary Care Provider [phone] Encounter Details Date Type Department Care Team (Late Contact Info) Description 06/29/2024 Telephone [facility] MEDICINE [address] [place] [address] Estela Banks [place] Social History Tobacco Use [...] Description 07/25/2024 9:30 AM EDT Office Visit [facility] ADULT DENTAL [address] [place] [address] Sissy Cruz, DDS [address] [place] [address] 09/20/2024 9:30 AM EDT Office Visit [facility] MEDICINE [address] [place] [address] Name, MD Oliverio [address] [place] [address] 01/02/2025 3:00 PM EDT Office Visit [facility] ADULT DENTAL [address] [place] [address] Vicki Rhodes documented as of this encounter Visit Diagnoses Not on filedocumented in this encounter Care Teams Manager Engagement Relationship Specialty Start Date End Date Name, [place] [address] PCP - General Family Medicine 07/06/18 documented as of this encounter
--- OUTSIDE RECORDS SUMMARY | 2024-07-04 19:51 | XMS_ITS | Encounter Summary ---
Author Organization [email or web address] Address [address] [facility] [address]t [place] [address] Care Team Providers Care Bagel Maker Name Role Phone Name, Oliverio CALVIN Primary Care Provider [phone] Encounter Details Date Type Department Care Team [...] 9:30 AM EDT Office Visit [facility] ADULT DENTAL [address] [place] [address] Sissy Cruz DDS [address] [place] [address] 09/20/2024 9:30 AM EDT Office Visit [facility] MEDICINE [address] [place] [phone] Name, MD Oliverio [address] [place] [address] 01/02/2025 3:00 PM EDT Office Visit [facility] ADULT DENTAL [address] [place] [address] Vicki Rhodes documented as of this encounter Visit Diagnoses Not on filedocumented in this encounter Care Teams Bagel Maker Relationship Specialty Start Date End Date Name, MD Oliverio [address] [place] [phone] PCP - General Family Medicine 07/06/18 documented as of this encounter
--- OUTSIDE RECORDS SUMMARY | 2024-07-04 19:51 | XMS_ITS | Encounter Summary ---
Author Organization [employer] Address [address] [facility] 7t [place] [address] Care Team Providers Care Dispatcher Service Name Role Phone Name, Oliverio CALVIN Primary Care Provider [phone] Reason for Visit * Reason Comments Gynecologic Exam Encounter Details Date Type Department Care Team (Latest Contact Info) Description 07/04/2024 10:00 AM EST Procedure Visit [facility] [address] [place] [address] Eunice Mahmood CNM [address] [place] [address] Cervical cancer screening (Primary Dx); PCOS (polycystic [...] Description 07/25/2024 9:30 AM EDT Office Visit [facility] [address] [place] [address] Sissy Cruz DDS [address] [place] [address] 09/20/2024 9:30 AM EDT Office Visit [facility] [address] [place] [address] Name, MD Oliverio [address] [place] [address] 01/02/2025 3:00 PM EDT Office Visit [facility] [address] [place] [address] Vicki Rhodes Scheduled Orders Name Type Priority [...] 10:55 AM EST) Triglycerides 248(H) <150 mg/dL [facility] Comment:Desirable Triglyceri de: less than 150 mg/dLBorderline High Triglyceride 150-199 mg/dLHigh Triglyceride: 200-499 mg/dLVery High Triglyceride: greater than or equal to 5OO mg/dL Cholesterol 180 <200 mg/dL [facility] Comment:Desirable Cholestero l: less than 200 mg/dLBorderline High Cholesterol: 200-239 mg/dLHigh Cholesterol: greater than 239 mg/dL LDL Cholesterol Calculated 101(H) <100 mg/dL [facility] Comment:Desirable LDL: less than 100 mg/dLNear Optimal/Above Optimal LDL: 110- 129 mg/dLBorderline High LDL: 130-159 mg/dLHigh LDL: 160-189 mg/dLVery High LDL: greater than or equal to 190 mg/dL HDL Cholesterol 30(L) >40 mg/dL [facility] Comment:Desirable HDL: great er than 40 mg/dL Note: This HDL assay may give artificially low results in patients with liver disease. Blood Venous blood specimen / Unknown 07/04/2024 10:55 AM EST 07/04/2024 11:35 AM EST [facility] BLOOD ORDERABLES Estephanie l Result Performing Organization Address [facility] Co de Phone Number [facility] [address] [place] [phone] * Hemoglobin A1c (07/04/2024 10:55 AM EST) Hemoglobin A1c 5.7 <6.0 % [facility] Comment:Hemoglobin A1C Refer ence Range Adults: 4.8 - 6.0 % Non diabetic: < 6.0 % Goal: < 7.0 %Additional Action Suggested: > 8.0 %Note: Hemoglobin A1c results are invalid for patients with abnormal amounts of HbF. Blood transfusions may impact the HbA1c concentration in the patient sample. Estimated Average Glucose 117 mg/dL [facility] Comment:eAG = Estimated ave rage glucose which is %A1C expressed asaverage glucose, using the formula of the O7C-KlqgbxtRorarax Glucose study (ADAG), Diabetes Care, Vol.31,#8,Dec. 2007 Blood Venous blood specimen / Unknown 07/04/2024 10:55 AM EST 07/04/2024 11:35 AM EST [facility] BLOOD ORDERABLES Estephanie l Result Performing Organization Address [facility] Co de Phone Number [facility] [address] [place] [phone] * TSH W/Reflex to FT4 (07/04/2024 10:55 AM EST) TSH reflex Free T4 1.35 0.32 - 4.0 uIU/mL [facility] Blood Venous blood specimen / Unknown 07/04/2024 10:55 AM EST 07/04/2024 11:35 AM EST [facility] BLOOD ORDERABLES Estephanie l Result [facility] [address] [place] [phone] * (ABNORMAL) POCT urinalysis dipstick manually [...] management documented in this encounter Care Teams Dispatcher Service Relationship Specialty Start Date End Date Name, MD Oliverio [address] [place] [phone] PCP - General Family Medicine 07/06/18 documented as of this encounter
--- OUTSIDE RECORDS SUMMARY | 2024-07-04 19:51 | XMS_ITS | Clinical Summary ---
Author Organization [employer] Address [address] [facility] 7t [place] [address] Care Team Providers Care Corduroy Cutter Operator Name Role Phone Name, Oliverio CALVIN Primary Care Provider [phone] Allergies No known active allergies Medications cyclobenzaprine [...] Description 07/04/2024 10:00 AM EST Procedure Visit [facility] [address] [place] [address] Eunice Mahmood CNM Cervical cancer screening (Primary Dx); PCOS (polycystic ovarian syndrome); Screening for diabetes mellitus; Screening for lipid disorders; Screening examination for venereal disease; Dysuria; Procreative management 07/04/2024 Travel 06/29/[address] [address] [place] Appointment Request 06/29/[address] [address] [place], [place] 06/29/[address] [address] Oliverio Wong MD Appointment Request 06/27/2024 2:00 PM EST Office Visit [facility] [address] [place] [address] Layla Curry Encounter for dental examination (Primary Dx); Dental calculus; Defective dental jehovah's witness; Dental plaque 06/23/2024 Refill [facility] [address] [place] [address] Aretha Castillo MD Gastroesophageal reflux disease without esophagitis 06/23/2024 Telephone [facility] [address] [place] [address] Layla Curry from Last 3 Months Immunizations [...] Description 07/25/2024 9:30 AM EDT Office Visit [facility] [address] [place] [address] Sissy Curz DDS [address] [place] [address] 09/20/2024 9:30 AM EDT Office Visit [facility] [address] [place] [address] Name, MD Oliverio [address] [place] [address] 01/02/2025 3:00 PM EDT Office Visit [facility] [address] [place] [address] Vicki Rhodes Health Maintenance Due Date Last [...] for dental examination Dental calculus Defective dental jehovah's witness Dental plaque BITEWINGS - 4 RADIOGRAPHIC IMAGES [...] Free T4 1.35 0.32 - 4.0 uIU/mL [facility] Blood Venous blood specimen / Unknown 07/04/2024 10:55 AM EST 07/04/2024 11:35 AM EST Eunice Mahmood [facility] BLOOD ORDERABLES Estephanie l Result Performing Organization Address [facility] Co de Phone Number [facility] [address] [place] [phone] * Hemoglobin A1c (07/04/2024 10:55 AM EST) Hemoglobin A1c 5.7 <6.0 % [facility] Comment:Hemoglobin A1C Refer ence Range Adults: 4.8 - 6.0 % Non diabetic: < 6.0 % Goal: < 7.0 %Additional Action Suggested: > 8.0 %Note: Hemoglobin A1c results are invalid for patients with abnormal amounts of HbF. Blood transfusions may impact the HbA1c concentration in the patient sample. Estimated Average Glucose 117 mg/dL [facility] Comment:eAG = Estimated ave rage glucose which is %A1C expressed asaverage glucose, using the formula of the C1J-VzzcpbuOclhjzo Glucose study (ADAG), Diabetes Care, Vol.31,#8,Dec. 2007 Blood Venous blood specimen / Unknown 07/04/2024 10:55 AM EST 07/04/2024 11:[address] [facility] BLOOD ORDERABLES Estephanie l Result Performing Organization Address [facility] Co de Phone Number [facility] [address] [place] [phone] * (ABNORMAL) Lipid Panel, Standard (07/04/2024 10:55 AM EST) Triglycerides 248(H) <150 mg/dL [facility] Comment:Desirable Triglyceri de: less than 150 mg/dLBorderline High Triglyceride 150-199 mg/dLHigh Triglyceride: 200-499 mg/dLVery High Triglyceride: greater than or equal to 5OO mg/dL Cholesterol 180 <200 mg/dL [facility] Comment:Desirable Cholestero l: less than 200 mg/dLBorderline High Cholesterol: 200-239 mg/dLHigh Cholesterol: greater than 239 mg/dL LDL Cholesterol Calculated 101(H) <100 mg/dL [facility] Comment:Desirable LDL: less than 100 mg/dLNear Optimal/Above Optimal LDL: 110- 129 mg/dLBorderline High LDL: 130-159 mg/dLHigh LDL: 160-189 mg/dLVery High LDL: greater than or equal to 190 mg/dL HDL Cholesterol 30(L) >40 mg/dL [facility] Comment:Desirable HDL: great er than 40 mg/dL Note: This HDL assay may give artificially low results in patients with liver disease. Blood Venous blood specimen / Unknown 07/04/2024 10:55 AM EST 07/04/2024 11:35 AM EST Eunice Mahmood [facility] BLOOD ORDERABLES Estephanie l Result [facility] [address] [place] [phone] * (ABNORMAL) POCT urinalysis dipstick manually [...] 07/04/2024 10:3 0 AM EST Eunice Mahmood [facility] POINT OF CARE TEST ENTER/ EDIT ORDERABLES Final Result * HEPATITIS B SURFACE ANTIGEN* (10/09/2021 2:40 PM EDT) Hepatitis B Surface Antigen Negative Negative [facility] Hepatitis C Antibody Nonreactive Nonreactive [facility] Comment: Antibodies to HCV not detected; does not exclude early acute HCV infection. HIV AB/AG Nonreactive Nonreactive [facility] Comment: HIV-1 p24 Ag and/or [...] detection of this assay. ?? The Bailey Flumer HIV Ag/Ab Combo assay result and supplemental assay results should be interpreted in conjunction with the patient's clinical presentation, history and other laboratory results. ??If the results are inconsistent with clinical evidence, additional testing is suggested to confirm the result. 10/09/2021 2:40 PM EDT us Marizol Gimenez HISTORICAL/NON ORDERABLE LABS Fi nal Result [facility] [address] from Last 3 Months or Most Recently Relevant to Health Maintenance Insurance HSN FULL [facility] D[facility] - HSN PARTIAL (MEDICAID) Care Teams Corduroy Cutter Operator Relationship Specialty Start Date End Date Name, MD Oliverio [address] [place] [address] PCP - General Family Medicine 07/06/18
--- OUTSIDE RECORDS SUMMARY | 2024-07-04 19:51 | XMS_ITS | Encounter Summary ---
Author Organization [employer] [facility] Address [address] [facility] 7t [place] [address] Care Team Providers Care Line Haul Owner Operator Name Role Phone Name, Oliverio CALVIN Primary Care Provider [phone] Encounter Details Date Type Department Care Team (Late Contact Info) Description 06/23/2024 Telephone [facility] [address] [place] [address] Layla Curry [address] [place] [address] Social History Tobacco Use Types Packs/Day Years [...] Upcoming Encounters Date Type Department Care Team ([facility] Contact Info) Description 07/25/2024 9:30 AM EDT Office Visit [facility] [address] [place] [address] Lane-Sissy Bear, DDS [address] [place] [address] 09/20/2024 9:30 AM EDT Office Visit [facility] [address] [place] [address] Name, MD Oliverio [address] [place] [address] 01/02/2025 3:00 PM EDT Office Visit [facility] [address] [place] [address] Vicki Rhodes documented as of this encounter Visit Diagnoses Not on filedocumented in this encounter Care Teams Line Haul Owner Operator Relationship Specialty Start Date End Date Name, MD Oliverio [address] [place] [address] PCP - General Family Medicine 07/06/18 documented as of this encounter
--- OUTSIDE RECORDS SUMMARY | 2024-07-04 19:51 | XMS_ITS | Encounter Summary ---
Author Organization [employer] Address [address] [facility] 7t [place] [address] Care Team Providers Care Claims Service Adjustor Name Role Phone Name, Oliverio CALVIN Primary Care Provider [phone] Reason for Visit * Reason Onset Date Comments Appointment Request 06/29/2024 Encounter Details Date Type Department Care Team ([facility] st Contact Info) Description 06/29/2024 Telephone [facility] [address] [place] [address] Estela Banks [place] Appointment Request Social History [...] 07/25/2024 9:30 AM EDT Office Visit [facility] [address] [place] [address] Sissy Cruz, DDS [address] [place] [address] 09/20/2024 9:30 AM EDT Office Visit [facility] [address] [place] [address] Name, MD Oliverio [address] [address] 01/02/2025 3:00 PM EDT Office Visit [facility] [address] [place] [address] Vicki Rhodes documented as of this encounter Visit Diagnoses Not on filedocumented in this encounter Care Teams Claims Service Adjustor Relationship Specialty Start Date End Date Name, MD Oliverio [address] [place] [address] [phone] PCP - General Family Medicine 07/06/18 documented as of this encounter
--- OUTSIDE RECORDS SUMMARY | 2024-07-04 19:51 | XMS_ITS | Encounter Summary ---
Author Organization [employer] Address [address] [facility] 7t [place] [address] Care Team Providers Care Yarn Dry Room Worker Name Role Phone Name, Oliverio CALVIN Primary Care Provider [phone] Reason for Visit * Reason Onset Date Comments Call Back Request 08/20/2023 Encounter Details Date Type Department Care Team ([facility] st Contact Info) Description 08/20/2023 Telephone [facility] [address] [place], [place] [phone] Name, MD Oliverio [address] [place] [address] Call Back Request Social History Tobacco Use [...] Description 07/25/2024 9:30 AM EDT Office Visit [facility] [address] [place] [address] Sissy Cruz DDS [address] [place] [address] 09/20/2024 9:30 AM EDT Office Visit [facility] [address] [place] [address] Name, MD Oliverio [address] [place] [address] 01/02/2025 3:00 PM EDT Office Visit [facility] [address] [place] [address] Vicki Rhodes documented as of this encounter Visit Diagnoses Not on filedocumented in this encounter Care Teams Yarn Dry Room Worker Relationship Specialty Start Date End Date Name, MD Oliverio [address] [place] [address] PCP - General Family Medicine 07/06/18 documented as of this encounter
--- OUTSIDE RECORDS SUMMARY | 2024-07-04 19:51 | XMS_ITS | Encounter Summary ---
Author Organization [employer] Address [address] [place] [address] 7t [place] [address] Care Team Providers Care Sales Agent Protective Service Name Role Phone Name, Oliverio CALVIN Primary Care Provider [phone] Reason for Visit * Reason Onset Date Comments Appointment Request 06/29/2024 Encounter Details Date Type Department Care Team ([facility] Contact Info) Description 06/29/2024 Telephone [facility] [address] [place], [place] [phone] Name, MD Oliverio [address] [place] [address] Appointment Request Social History Tobacco Use Types [...] like a routine visit and lab work. Brim Greaser Operator advise will send a message to team. Contact pt at [phone] documented in this encounter Plan of Treatment Upcoming Encounters Date Type Department Care Team ([facility] Contact Info) Description 07/25/2024 9:30 AM EDT [facility] Visit [facility] [address] [place] [address] Sissy Cruz, FINNS [address] [place] [address] 09/20/2024 9:30 AM EDT Office Visit [facility] [address] [place] [address] Name, MD Oliverio [address] [place] [address] 01/02/2025 3:00 PM EDT Office Visit [facility] ADULT DENT[facility] [address] [place] [address] Vicki Rhodes documented as of this encounter Visit Diagnoses Not on filedocumented in this encounter Care Teams Sales Agent Protective Service Relationship Specialty Start Date End Date Name, MD Oliverio [address] [place] [address] PCP - General Family Medicine 07/06/18 documented as of this encounter
--- OUTSIDE RECORDS SUMMARY | 2024-07-04 19:51 | XMS_ITS | Encounter Summary ---
Author Organization [employer] Address [address] [place] [address] 7t [place] [address] Care Team Providers Care Actuarial Associate Name Role Phone Name, Oliverio CALVIN Primary Care Provider [phone] Reason for Visit * Reason Comments Routine Cleaning Dental Exam Encounter Details Date Type Department Care Team ([facility] st Contact Info) Description 06/27/2024 2:00 PM EST Office Visit [facility] ADULT DENT[facility] [address] [place], [place] [phone] Layla Curry [address] [place] [address] Encounter for dental examination (Primary Dx); Dental calculus; Defective dental advent; Dental plaque Social History Tobacco Use Types [...] (prophy and exam), Timeout Time: 1414 Location: [facility] Tooth: Maxilla and Mandible Procedure: Exam, X-rays, and Prophylaxis Verified the above with patient, drafter assistant, and provider. Confirmed via patient's chart, intraorally and by radiographs. Head Of Geography: not applicable Medical Hx: Vitals: Blood pressure [...] patient including brushing technique and flossing. Recommendations: [place] two times daily, modified allan technique, Floss daily, Electric toothbrush Recall Frequency: 6 mo NV: 6 month recall Prophy completed by [facility] student BRANDY Romero Hygienist: Layla Curry RDH [...] (prophy and exam), Timeout Time: 1414 Location: [facility] Tooth: Maxilla and Mandible Procedure: Exam, X-rays, and Prophylaxis Verified the above with patient, drafter assistant, and provider. Confirmed via patient's chart, intraorally and by radiographs. Head Of Geography: not applicable Chief Complaint Patient presents with [...] Cancer Risk: Low Risk Oral Hygiene Instructions: [place] two times daily, modified allan technique, Floss daily, Soft bristle toothbrush, [place] Tongue Caries Risk Assessment: Low- no risk factor Assessment/Plan Edilberto #13- re- make Patient tolerated procedure well, all questions answered and expressed understanding. Dismissed in good condition. NV: Edilberto #13 Supervisor Shipping Room: Layla Curry Dentist: Sissy Cruz DDS documented in this encounter Plan of Treatment Upcoming Encounters Date Type Department Care Team (Late st Contact Info) Description 07/25/2024 9:30 AM EDT Office Visit [facility] ADULT DENT[facility] [address] [place] [address] Sissy Cruz DDS [address] [place] [address] 09/20/2024 9:30 AM EDT Office Visit [facility] [address] [place] [address] Name, MD Oliverio [address] [place] [address] 01/02/2025 3:00 PM EDT Office Visit [facility] ADULT DENTAL [address] [place] [address] Vicki Rhodes Scheduled Orders Name Type Priority [...] for dental examination Dental calculus Defective dental advent Dental plaque ORAL HYGIENE INSTRUCTIONS Routine 06/27/2024 [...] Dental calculus Accretions on teeth Defective dental advent Unspecified unsatisfactory advent of tooth Dental plaque Accretions on teeth documented in this encounter Care Teams Actuarial Associate Relationship Specialty Start Date End Date Name, MD Oliverio [address] [place] [address] PCP - General Family Medicine 07/06/18 documented as of this encounter
--- OUTSIDE RECORDS SUMMARY | 2024-07-04 19:51 | XMS_ITS | Encounter Summary ---
Author Organization [employer] Address [address] [facility] 7t [place] [address] Care Team Providers Care Information Specialist Name Role Phone Name, Oliverio CALVIN Primary Care Provider [phone] Reason for Visit * Reason Onset Date Comments Med Refill 06/23/2024 Encounter Details Date Type Department Care Team (Late Contact Info) Description 06/23/2024 Refill [facility] [address] [place] [address] Aretha Castillo MD [address] [place] [address] Gastroesophageal reflux disease without esophagitis Social History [...] Description 07/25/2024 9:30 AM EDT Office Visit [facility] [address] [place] [address] Sissy Cruz, DDS [address] [place] [address] 09/20/2024 9:30 AM EDT Office Visit [facility] [address] [place] [address] Name, MD Oliverio [address] [place] [address] 01/02/2025 3:00 PM EDT Office Visit [facility] [address] [place] [address] Vicki Rhodes documented as of this encounter Visit Diagnoses Diagnosis Gastroesophageal reflux disease without esophagitis Esophageal reflux documented in this encounter Care Teams Information Specialist Relationship Specialty Start Date End Date Name, MD Oliverio [address] [place] [address] PCP - General Family Medicine 07/06/18 documented as of this encounter
--- OUTSIDE RECORDS SUMMARY | 2024-07-04 19:51 | XMS_ITS | Clinical Summary ---
Author Organization [facility] Address [address] [place] [address] Care Team Providers Care Proposal Rep Name Role Phone Unavailable Primary Care Provider [...]
[2024-07-06 14:13] LABS: C. trachomatis RNA TMA NOT DETECTED (NOT DETECTED); N. gonorrhoeae RNA TMA NOT DETECTED (NOT DETECTED)
[2024-07-11 11:04] LABS: HPV Genotype 16 Negative (Negative); HPV Genotype 18 Negative (Negative); HPV High Risk Negative (Negative)
[2024-07-14 13:09] LABS: Trichomonas (NAAT) NOT DETECTED
== END 2024-07-04 16:42 | disposition home or self-care (01) ==
LOC: HO.HHCLNP 16:41
PROVIDERS: Visit Provider Advanced Practice Midwife
DX: Z12.4 Encounter for screening for malignant neoplasm of cervix (principal); Z11.3 Encounter for screening for infections with a predominantly sexual mode of transmission; Z11.51 Encounter for screening for human papillomavirus (HPV)
CPT/HCPCS: 87491; 87591; 87626; 87661; 88175

== ENCOUNTER 2024-07-24 13:09 | Emergency (ER) | payer OTHER, SELFPAY ==
[2024-07-24 13:21] VITALS: BP 140/90; PULSE 76; RESP 18; TEMP 36.6; O2SAT 97; BMI 32.8
--- NOTE | 2024-07-24 13:22 | ED_ITS ---
HPI - General Adult General Chief complaint: Skin/Abscess/Foreign Body Stated complaint: rib/back pain, rash Time Seen by Provider: 07/24/24 13:22 Source: patient, RN notes reviewed and old records reviewed Mode of arrival: ambulatory Limitations: no limitations History of Present Illness ED Provider: Derrek [facility] narrative: Patient is a 33-year-old female presenting with pain to right ribs wrapping around to back as well as rash since Wednesday. Denies fevers, headache, body aches. 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 Believes she had chicken pox in the past. MD complaint: rash Onset (ago): day(s) Quality: burning Pain Consistency: constant Relieving factors: none Related Data Home Medications ?Medication ?Instructions ?Recorded ?Confirmed omeprazole 20 mg capsule,delayed 20 mg PO DAILY 09/19/21 release Previous Rx's ?Medication ?Instructions ?Recorded prenat.vits,darrius,wzd-lucq-wbafl 1 tab PO DAILY #30 tabs 08/31/21 vitamin with calcium 1 tab PO DAILY 90 days #90 tabs 10/02/21 no.72-iron 27 mg-folic acid 1 mg tablet ( Vitamins Plus Low Iron) penicillin V potassium 500 mg 500 mg PO TID 7 days #21 tabs 07/09/22 tablet cyclobenzaprine 10 mg tablet 10 mg PO TID PRN muscle spasm #10 09/11/23 tabs lidocaine 5 % topical patch 1 patch topical DAILY #15 ea 09/11/23 naproxen 500 mg tablet 500 mg PO BID PRN pain #20 tabs 09/11/23 valacyclovir 1 gram tablet 1,000 mg PO TID #21 tabs 07/24/24 Allergies Allergy/AdvReac Type Severity Reaction Status Date / Time No Known Allergies Allergy Verified 07/24/24 13:24 Review of Systems 2 Review of Systems: as per HPI Yes all other systems are reviewed and are negative Constitutional: Constitutional: Reports as per HPI PMFSH Past Medical History Medical History No known health problems Social History Social History (Updated 10/09/21 @ 13:43 by Ayesha Jamil LPN) Household Members: Significant Other Housing: Apartment Are you a primary critical care educator to a significant other at home: No Do you presently have visiting nurse or other home services: No Alcohol intake: never Patient Tobacco Use Status: Never used Tobacco Special lizett needs: No Agree to transfusion: Yes Advance Directives: No Advance Directives Information Provided: Yes Do you have a plan to hurt others: No Plan Sexual orientation: Straight/Heterosexual Gender identity: Female Physical Exam ED Vital Signs: Vital Signs - 24 hr 07/24/24 13:21 Temperature 97.9 F Pulse Rate 76 Respiratory Rate 18 Blood Pressure 140/90 H Pulse Oximetry 97 Oxygen Delivery Method Room Air BMI result Body Mass Index 32.8 Vital signs have been reviewed and appear to be correct. Blood pressure normal. Heart rate normal. Respiratory rate normal. Temperature normal. Oxygen saturation normal. Const General: cooperative, healthy appearing and no acute distress Orientation/consciousness: oriented to person, oriented to place, oriented to time and patient oriented x3 Limitations: no limitations HENMT Head: Yes normocephalic and Yes atraumatic Ears: external ears normal General nose exam: Normal external nose present Face and sinus: Yes face symmetric Mouth: oropharynx normal and moist mucous membranes Throat: Yes uvula midline Eyes Pupils: Equal, round and reactive pupils present Neck Neck: Yes normal visual inspection and Yes supple Chest Chest palpation & inspection: normal palpation of entire chest wall Resp Effort & Inspection: normal respiratory effort and able to speak in complete sentences Auscultation: clear to auscultation bilaterally Cardio Rate: regular rate Rhythm: regular rhythm Heart sounds: S1 normal heart sound present and S2 normal heart sound present GI Palpation (GI): Soft to palpation and nontender Auscultation: normoactive bowel sounds General: Yes no CVA tenderness Back/Spine/Pelvis Back: no CVA tenderness Skin General skin exam: elasticity normal and turgor normal Full body images: 2 1. erythematous vesicular rash right of midline Neuro General: oriented to person, oriented to place, oriented to time, patient oriented x3, moves all extremities, no focal motor deficits and CN's II-XI intact bilaterally Cranial nerves: Yes Equal, round and reactive pupils present Cognition (Neuro): normal cognition Extrem General: Yes full ROM, Yes no pedal edema and Yes no calf tenderness Psych Mental Status: mental status grossly normal Affect: normal affect Thought process: Normal thought process present Medical Decision Making Medical Decision Making MDM Narrative: Patient is a 33-year-old female presenting with pain to right ribs wrapping around to back as well as rash since Wednesday. On exam patient is awake, A+Ox3, VS WNL, afebrile, normal neurological exam without focal deficits, physical exam findings as above. Given reported symptoms and physical exam findings, initial differential includes but is not limited to herpes zoster, contact dermatitis, atopic dermatitis. Physical exam findings consistent with shingles. Will start patient on valacyclovir, advised Tylenol and ibuprofen for pain. 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 Isolation precautions discussed. Return precautions discussed. Patient verbalized understanding of and agreement with plan. Differential Diagnosis Differential Diagnoses: The differential diagnosis associated with the presentation includes As per MDM. External Record Review External record reviewed: Inpatient record, Office record and Outpatient record Prescription Management I considered prescription management with: Antiviral Discharge Plan Discharge Clinical Impression: Herpes zoster Patient Disposition: Home, Self-Care Instructions: Valacyclovir (By mouth), Shingles (ED) Additional Instructions: You were evaluated in the emergency department today for rib pain and rash. Your symptom are due to shingles (herpes zoster) which is a viral infection caused by the same virus as chicken pox. You are contagious until the rash has fully crusted over. Specifically avoid anyone who is elderly, , infants, or anyone who has not had chicken pox or the chicken pox vaccine. You are being prescribed valacyclovir which is an antiviral medication. Take this as prescribed. Follow up with your primary care provider as needed. Return to the emergency department if you develop severe headache, confusion, fevers, or any other new or concerning symptoms. We recommend that you take 650mg of Tylenol or 600 mg of ibuprofen every 6 hours as needed for discomfort. If necessary, you can alternate these medications every 3 hours. For example, at 9:00 a.m. take Tylenol, then at noon take ibuprofen, then at 3:00 p.m. take Tylenol, etc.. Prescriptions: New valacyclovir 1 gram tablet 1,000 mg PO TID Qty: 21 0RF No Action Vitamin Plus Low Iron 27 mg iron- 1 mg tablet 1 tab PO DAILY 90 Days Qty: 90 3RF penicillin V potassium 500 mg tablet 500 mg PO TID 7 Days Qty: 21 0RF prenat.vits,darrius,sty-oljg-glzee Tablet 1 tab PO DAILY Qty: 30 0RF cyclobenzaprine 10 mg tablet 10 mg PO TID PRN (Reason: muscle spasm) Qty: 10 0RF lidocaine 5 % adhesive patch,medicated 1 patch topical DAILY Qty: 15 0RF Rx Instructions: leave on most painful area for up to 12 hrs naproxen 500 mg tablet 500 mg PO BID PRN (Reason: pain) Qty: 20 0RF omeprazole 20 mg capsule,delayed release(DR/EC) 20 mg PO DAILY Stand Alone Forms: Work/School Release Print Language: Wallisian
[2024-07-24 14:56] VITALS: BP 140/90; PULSE 76; RESP 18; TEMP 36.6; O2SAT 97
== END 2024-07-24 14:57 | disposition home or self-care (01) ==
PROVIDERS: Emergency Provider Emergency Medicine Emergency Medical Services; PCP Internal Medicine Geriatric Medicine
DX: B02.8 Zoster with other complications (principal); M54.50 Low back pain, unspecified; R07.81 Pleurodynia
CPT/HCPCS: 99282; 99283

== ENCOUNTER 2024-09-20 10:40 | Outpatient (REF) | payer OTHER, SELFPAY ==
--- NOTE | ~2024-09-20 | XR_ITS ---
EXAMINATION: XR CHEST CLINICAL INFORMATION: preop exam requested by plastic surgeon COMPARISON: 12/22/2020. TECHNIQUE: 2 views of the chest were obtained. FINDINGS: The cardiac, hilar, and mediastinal contours are normal. The lungs are clear bilaterally. There is no pneumothorax or pleural effusion. There is no focal osseous or soft tissue abnormality. XR/XR chest 2V IMPRESSION: Normal chest. Electronically signed by: Ti Lindo MD 09/20/2024 11:03 AM EDT
--- OUTSIDE RECORDS SUMMARY | 2024-09-20 11:43 | XMS_ITS | Clinical Summary ---
Author Organization [facility] ity Address [address] [place] [address] Care Team Providers Care Certified Tower Climber Name Role Phone Unavailable Primary Care Provider [...] Influencers of Health Screening 12/01/2023 COVID-19 Vaccine (2023-2 5 season) 2024 Influenza Vaccine (Season Ended) 2025 HIB Vaccines Aged Out No longer eligi [...] age to complete this topic Meningococcal B Vaccine Aged Out No l onger eligible based on patient's age to complete [...]
[2024-09-20 13:34] LABS: MANUAL DIFF FLAG NO
[2024-09-20 13:41] LABS: Prothrombin Time 11.1 SEC (10.9-12.4)
[2024-09-20 13:43] LABS: Partial Thromboplastin Time 31.1 SEC (26.0-36.8)
[2024-09-20 13:44] LABS: Basophils Absolute Auto 0.1 X10*3/uL (0.0-0.2); Basophils Percent Auto 0.9 % (0-2); Eosinophils Absolute Auto 0.1 X10*3/uL (0.0-0.4); Eosinophils Percent Auto 1.7 % (0-4); Hematocrit 42.6 % (37.0-47.0); Hemoglobin 13.5 g/dl (12.0-16.0); Imm Gran Abs Auto 0.03 X10*3/uL (0.00-0.03); Imm Gran Pct Auto 0.5 % (0.0-0.4); Lymphocytes Absolute Auto 1.5 X10*3/uL (1.2-4.9); Lymphocytes Percent Auto 26.1 % (20-40); Mean Corpuscular HGB Conc 31.7 g/dl (31.0-35.0); Mean Corpuscular Hemoglobin 24.4 pg (27.0-33.0); Mean Platelet Volume 9.8 fL (9.4-12.3); Monocytes Absolute Auto 0.4 X10*3/uL (0.1-1.2); Monocytes Percent Auto 7.4 % (2-11); Neutrophils Absolute Auto 3.7 x10*3/uL (2.0-8.3); Neutrophils Percent Auto 63.4 % (45-73); Platelet Count 393 X10*3/uL (160-400); Red Blood Count 5.53 X10*6/uL (4.20-5.50); Red Cell Distribution Width 15.6 % (11.0-16.0); White Blood Count 5.8 X10*3/uL (4.8-10.8)
[2024-09-20 13:55] LABS: Anion Gap 12 (12-20); Blood Urea Nitrogen 11 mg/dL (9-16); Calcium 9.2 mg/dL (8.4-10.2); Carbon Dioxide 22 mmol/L (22-29); Chloride 107 mmol/L (96-108); Estimated Glomerular Filt Rate > 60; Glucose Random 97 mg/dL (60-115); Sodium 137 mmol/L (135-145)
[2024-09-20 14:43] LABS: HCG Quantitative < 2 mIU/mL
[2024-09-21 07:57] LABS: HIV AB/AG Nonreactive (Nonreactive); HIV Num 1 0.07 S/CO (0.00-0.99)
== END 2024-09-20 10:41 | disposition home or self-care (01) ==
LOC: HO.HHCX 10:40
PROVIDERS: Visit Provider Internal Medicine Geriatric Medicine
DX: Z01.818 Encounter for other preprocedural examination (principal)
CPT/HCPCS: 36415; 71046; 80048; 84702; 85025; 85610; 85730; 87389

== ENCOUNTER → 2024-09-20 10:40 | Outpatient (BNV) | payer SELFPAY | PROVIDERS: Visit Provider Radiology Diagnostic Radiology | DX: Z01.818 Encounter for other preprocedural examination (principal) | CPT/HCPCS: 71046 ==

== ENCOUNTER 2024-09-20 11:04 | Outpatient (REF) | payer OTHER, SELFPAY ==
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
--- OUTSIDE RECORDS SUMMARY | 2024-09-20 12:09 | XMS_ITS | Encounter Summary ---
Author Organization [email or web address] Address [address] [place] [address] Care Team Providers Care Loom Inspector Name Role Phone Name, Oliverio CALVIN Primary Care Provider [phone] Reason for Visit * Reason Onset Date Comments Med Refill 09/18/2024 Encounter Details Date Type Department Care Team ([facility] st Contact Info) Description 09/18/2024 Refill [facility] [address] [place], [place] [id number] Name, MD Oliverio [address] [place] [address] Gastroesophageal reflux disease without esophagitis Social History Tobacco Use Types Packs/Day Years Used Date Smoking Tobacco: Never Smokeless Tobacco: Never Alcohol Use Standard Drinks/Week Comments Not Currently 0 (1 standard drink = 0.6 oz pur e alcohol) Housing Stability Answer Date Recorded What is your housing situation today? I have benja rolf 07/04/[address] you li [...] encounter Miscellaneous Notes * Telephone Encounter - Celestina Cunningham LPN - 09/18/2024 1:48 PM EDT Last seen 07.04.24 documented in this encounter Plan of Treatment Upcoming Encounters Date Type Department Care Team (Late st Contact Info) Description 01/02/2025 3:00 PM EDT Office Visit [facility] ADULT DENTAL [address] [place] [address] Vicki Rhodes documented as of this encounter Visit Diagnoses Diagnosis Gastroesophageal reflux disease without esophagitis Esophageal reflux documented in this encounter Care Teams Loom Inspector Relationship Specialty Start Date End Date Name, MD Oliverio [address] [place] [address] PCP - General Family Medicine 07/06/18 documented as of this encounter
--- OUTSIDE RECORDS SUMMARY | 2024-09-20 12:09 | XMS_ITS | Encounter Summary ---
Author Organization [employer] Address [address] [place] [address] Care Team Providers Care Firm Administrator Name Role Phone Name, Oliverio CALVIN Primary Care Provider [phone] Encounter Details Date Type Department Care Team (Latest Contact Info) Description 09/20/2024 Travel Social History Tobacco Use Types Packs/Day Years Used Date Smoking Tobacco: Never Smokeless Tobacco: Never Alcohol Use Standard Drinks/Week Comments Not Currently 0 (1 standard drink = 0.6 oz pur e alcohol) Depression Answer Date Recorded Patient Health Questionnaire-9 Score 0 09/20/2024 Patient Health Questionnaire-9 Score 0 09/20/2024 Last PHQ-9: Questionnaire Data Not on file 0 09/20/2024 Housing Stability Answer Date Recorded What is [...] off services in your home? No 07/04/2024 Depression Answer Date Recorded Patient Health Questionnaire-2 Score 0 09/20/2024 Internet Access Answer Date Recorded Internet Access Q1 Yes 07/04/2024 Internet Access Q2 Not on file 07/04/2024 Comments No Sex and Gender Information Value Date Recorded Sex Assigned at Female 03/09/2022 10:14 AM EDT Legal Sex Female 10:14 AM EDT Gender Identity Female 03/09/2022 10:14 AM EDT Sexual Orientation Straight 03/09/2022 10 :14 AM EDT documented as of this encounter Functional Status * Over the past 2 weeks, how often have you been bothered by any of the following problems? Question Answer Date of Assessment Author Patient Health Questionnaire-2 Score 0 09/20/2024 10:24 AM EDT Akin Banks [place] * Little interest or pleasure in doing things Answer Date of Assessment Author Not at all 09/20/2024 10:24 AM NOVAT Estela Banks [place] * Feeling down, depressed, or hopeless Answer Date of Assessment Author Not at all 09/20/2024 10:24 AM Estela Kang MA * Trouble falling or staying asleep, or sleeping too much Answer Date of Assessment Author Not at all 09/20/2024 10:24 AM Estela Kang MA * Feeling tired or having little energy Answer Date of Assessment Author Not at all 09/20/2024 10:24 AM Estela Kang MA * Poor appetite or overeating Answer Date of Assessment Author Not at all 09/20/2024 10:24 AM Estela Kang MA * Feeling bad about yourself - or that you are a failure or have let yourself or your family down Answer Date of Assessment Author Not at all 09/20/2024 10:24 AM Estela Kang MA * Trouble concentrating on things, such as reading the newspaper or watching television Answer Date of Assessment Author Not at all 09/20/2024 10:24 AM Estela Kang MA * Moving or speaking so slowly that other people could have noticed? Or the opposite - being so fidgety or restless that you have been moving around a lot more than usual. Answer Date of Assessment Author Not at all 09/20/2024 10:24 AM NOVAT Estela Banks MA * Thoughts that you would be better off or hurting yourself in some way Answer Date of Assessment Author Not at all 09/20/2024 10:24 AM Estela Kang MA * Patient Health Questionnaire-9 Score Answer Date of Assessment Author 0 09/20/2024 10:24 AM NOVAT Estela Banks MA * Over the last 2 weeks, how often have you been bothered by any of the following problems? Question Answer Date of Assessment Author Feeling nervous, anxious, or on edge 0 09/20/2024 10:25 AM Andrei Kang MA Not being able to stop or control worrying 0 09/20/2024 10:25 AM Andrei Kang MA Worrying too much about different things 0 09/20/2024 10:25 AM Andrei Kang MA Trouble relaxing 0 09/20/2024 10:25 AM Estela Kang MA Being so restless that it is hard to sit still 0 09/20/2024 10:25 AM Andrei Kang MA Becoming easily annoyed or irritable 0 09/20/2024 10:25 AM Andrei Kang MA Feeling afraid as if something awful might happen 0 09/20/2024 10:25 AM Estela Alcantara MA RYAN-7 Total Score 0 09/20/2024 10:25 AM Estela Kang MA documented as of this encounter Plan of Treatment Upcoming Encounters Date Type Department Care Team (Late st Contact Info) Description 01/02/2025 3:00 PM EDT Office Visit [facility] ADULT D[facility] [address] [place] [address] Vicki Rhodes documented as of this encounter Visit Diagnoses Not on filedocumented in this encounter Additional Health Concerns Assessment Noted Time PHQ-9 Depression Total Score: 0 05/14/20 25 10:24 AM EDT documented as of this encounter Care Teams Firm Administrator Relationship Specialty Start Date End Date Name, MD Oliverio [address] [place] [address] PCP - General Family Medicine 07/06/18 documented as of this encounter
--- OUTSIDE RECORDS SUMMARY | 2024-09-20 12:09 | XMS_ITS | Encounter Summary ---
Author Organization [employer] Address [address] [place] [address] Care Team Providers Care Boarding Mother Name Role Phone Name, Oliverio CALVIN Primary Care Provider [phone] Reason for Visit * Reason Comments Pre-op Exam Encounter Details Date Type Department Care Team ([facility] Contact Info) Description 09/20/2024 9:30 AM EDT Office Visit [facility] MEDICINE [address] [place], [place] [phone] Name, MD Oliverio [address] [place] [address] Preop examination (Primary Dx) Social History Tobacco Use Types Packs/Day Years [...] Sign Reading Time Taken Comments Blood Pressure 132/98 09/20/2024 9:26 AM EDT Pulse 79 09/20/2024 9:26 AM EDT Temperature 36.5 ??C (97.7 ??F) 09/20/2024 9:26 AM ED T Respiratory Rate 18 09/20/2024 9:26 AM EDT Oxygen Saturation - - Inhaled Oxygen Concentration - - Weight 85.6 kg (188 lb 12.8 oz) 09/20/2024 9:26 AM EDT Height 160 cm (5' 3 ) 09/20/2024 9:26 AM EDT Body Mass Index 33.44 09/20/2024 9:26 AM EDT documented in this encounter Functional Status * Over the past 2 weeks, how often have you been bothered by any of the following problems? Question Answer Date of Assessment Author Patient Health Questionnaire-2 Score 0 09/20/2024 10:24 AM EDT Akin Connell MA * Little interest or pleasure in doing things Answer Date of Assessment Author Not at all 09/20/2024 10:24 AM EDT Antoinette Connell MA * Feeling down, depressed, or hopeless Answer Date of Assessment Author Not at all 09/20/2024 10:24 AM EDT Antoinette Connell MA * Trouble falling or staying asleep, or sleeping too much Answer Date of Assessment Author Not at all 09/20/2024 10:24 AM Antoinette Kang MA * Feeling tired or having little energy Answer Date of Assessment Author Not at all 09/20/2024 10:24 AM Antoinette Kang MA * Poor appetite or overeating Answer Date of Assessment Author Not at all 09/20/2024 10:24 AM Antoinette Kang MA * Feeling bad about yourself - or that you are a failure or have let yourself or your family down Answer Date of Assessment Author Not at all 09/20/2024 10:24 AM Antoinette Kang MA * Trouble concentrating on things, such as reading the newspaper or watching television Answer Date of Assessment Author Not at all 09/20/2024 10:24 AM Antoinette Kang MA * Moving or speaking so slowly that other people could have noticed? Or the opposite - being so fidgety or restless that you have been moving around a lot more than usual. Answer Date of Assessment Author Not at all 09/20/2024 10:24 AM Antoinette Kang MA * Thoughts that you would be better off or hurting yourself in some way Answer Date of Assessment Author Not at all 09/20/2024 10:24 AM Antoinette Kang MA * Patient Health Questionnaire-9 Score Answer Date of Assessment Author 0 09/20/2024 10:24 AM Antoinette Kang MA * Over the last 2 weeks, [...] MA Trouble relaxing 0 09/20/2024 10:25 AM EDT Antoinette Connell MA Being so restless that it is hard to sit still 0 09/20/2024 10:25 AM EDT Andrei Connell MA Becoming easily annoyed or irritable 0 09/20/2024 10:25 AM EDT Andrei Connell MA Feeling afraid as if something awful might happen 0 09/20/2024 10:25 AM EDT Antoinette Hoang MA RYAN-7 Total Score 0 09/20/2024 10:25 AM EDT Antoinette Connell MA documented as of this encounter Progress Notes * Oliverio Wong MD - 09/20/2024 9:30 AM EDT Subjective Patient ID: Mirna Flores is a 33 y.o. female who presents for Pre-op Exam. Patient comes for preoperative evaluation prior to plastic surgery ([place] butt lift[facility] [place]. She feels well. She does not have any problems exercising vigorously. No chest pains or shortness of breath. She never had any previous surgeries or anesthesia for any reason. She is not diabetic, no kidney problems, no history of CVA/CAD/CHF. Review of Systems Constitutional: Negative for chills and fever. HENT: Negative for sore throat. Respiratory: Negative for cough, shortness of breath and wheezing. Cardiovascular: Negative for chest pain, palpitations and leg swelling. Gastrointestinal: Negative for abdominal pain. Visit Vitals BP (!) 132/98 (BP Location: Left arm, Patient Position: Sitting, BP Cuff Size: Adult) Pulse 79 Temp 97.7 ??F (36.5 ??C) (Temporal) Resp 18 Ht 5' 3 (1.6 m) Wt 188 lb 12.8 oz (85.6 kg) LMP 09/12/2024 (Approximate) BMI 33.44 kg/m?? OB Status Having periods Smoking Status Never BSA 1.95 m?? Objective Physical Exam Constitutional: Appearance: Normal appearance. Cardiovascular: Rate and Rhythm: Normal rate and regular rhythm. Heart sounds: No murmur heard. No gallop. Pulmonary: Effort: Pulmonary effort is normal. No respiratory distress. Breath sounds: Normal breath sounds. No wheezing. Musculoskeletal: Right lower leg: No edema. Left lower leg: No edema. Neurological: Mental Status: She is alert. Assessment/Plan Diagnoses and all orders for this visit: Preop examination Comments: Patient can proceed with her planned surgery with low risk of cardiovascular complications. I will order the testing requested by her plastic surgeon and provide patient with copies of the results when available. Orders: - CBC auto differential; Future - Basic Metabolic Panel; Future - Prothrombin Time-INR; Future - Partial Thromboplastin Time, Activated (APTT); Future - HIV-1/2 Antigen and Antibodies, Fourth Generation, with Reflexes; Future - Urinalysis, Complete, with Reflex to Culture; Future - hCG, Total, Quantitative; Future - XR Chest 2 Views; Future - ECG 12 lead documented in this encounter Miscellaneous Notes * Addendum Note - Antoinette Connell MA - 09/20/2024 9:30 AM EDTAddended by: ANTOINETTE CONNELL on: 09/20/2024 10:13 AM Modules accepted: Orders documented in this encounter Plan of Treatment Upcoming Encounters Date Type Department Care Team (Late st Contact Info) Description 01/02/2025 3:00 PM EDT Office Visit [facility] ADULT DENTAL [address] [place] [address] Vicki Rhodes Scheduled Orders Name Type Priority Associated Diagnoses Orde r Schedule CBC auto differential Lab Routine Preop examination Expected: 09/20/2024 (Approximate), Expires: 09/20/2025 Basic Metabolic Panel Lab Routine Preop examination Expected: 09/20/2024 (Approximate), Expires: 09/20/2025 Prothrombin Time-INR Lab Routine Preop examination Expected: 09/20/2024, Expires: 09/20/2025 Partial Thromboplastin Time, Activated (APTT) Lab Routine Preop examination Expected: 09/20/2024, Expires: 09/20/2025 HIV-1/2 Antigen and Antibodies, Fourth Generation, with Reflexes Lab Routine Preop examination Expected: 09/20/2024 (Approximate), Expires: 09/20/2025 Urinalysis, Complete, with Reflex to Culture Lab Routine Preop examination Expected: 09/20/2024 (Approximate), Expires: 09/20/2025 hCG, Total, Quantitative Lab Routine Preop examination Expected: 09/20/2024 (Approximate), Expires: 09/20/2025 documented as of this encounter Procedures Procedure Name Priority Date/Time Associated Diagnosis Comments XR CHEST 2 VIEWS Routine 09/20/2024 10:4 0 AM EDT Preop examination POCT GLYCATED HEMOGLOBIN, TOTAL Routine 09/20/2024 10:12 AM EDT Preop examination POCT GLUCOSE Routine 09/20/2024 10:12 AM EDT Preop examination ECG 12-LEAD Routine 09/20/2024 9:58 AM EDT Preop examination documented in this encounter Results * XR Chest 2 Views (09/20/2024 10:40 AM EDT) Anatomical Region Laterality Modality Chest Radiographic Ava ging 09/20/2024 10:4 0 AM EDT Narrative 09/20/2024 11:06 AM EDT ?[facility] ?[address] ?[place] [address] ?XRay Report ? Signed ? Patient: Sandra,Mirna M ?MR#: ?? [id number] ? : 1990 ?Acct:[id number] ? Age/Sex: 33 / F ?ADM Date: 05/14/25 ? Loc: HO.HHCX ? Attending Charis Duron Name MD ? Ordering Physician: Name,Oliverio MD ?? Date of Service: 09/20/24 ?? Procedure(s): XR chest 2V ?? Accession Number(s): [id number] ? cc: Oliverio Wong MD ? EXAMINATION: ?? XR CHEST ? CLINICAL INFORMATION: ?? preop exam requested by plastic surgeon ? COMPARISON: ?? 12/22/2020. ? TECHNIQUE: ?? 2 views of the chest were obtained. ? FINDINGS: ?? The cardiac, hilar, and mediastinal contours are normal. ? The lungs are clear bilaterally. There is no pneumothorax or pleural ?? effusion. ? There is no focal osseous or soft tissue abnormality. ? XR/XR chest 2V ?? IMPRESSION: ?? Normal chest. ? Electronically signed by: ??Ti Lindo MD ??09/20/2024 11:03 AM EDT RP ? Dictated By: ?Ti Lindo MD ? Signed By: ?<Electronically signed by Ti Lindo MD in OV> ?09/20/24 1103 ? DD/ 1040 ? TD/TT: 09/20/24 1045 ? Director Loss Prevention: ? Procedure Note Massiel, Image - 09/20/[address] [address] XRay Report Signed Patient: Mirna Flores MMR#: [id number] : 1990Acct:[id number] Age/Sex: 33 / FADM Date: 09/20/24 Loc: HO.HHCX Attending Dr: Oliverio Wong MD Ordering Physician: Oliverio Wong MD Date of Service: 09/20/24 Procedure(s): XR chest 2V Accession Number(s): [id number] cc: Oliverio Wong MD EXAMINATION: XR CHEST CLINICAL INFORMATION: preop exam requested by plastic surgeon COMPARISON: 12/22/2020. TECHNIQUE: 2 views of the chest were obtained. FINDINGS: The cardiac, hilar, and mediastinal contours are normal. The lungs are clear bilaterally. There is no pneumothorax or pleural effusion. There is no focal osseous or soft tissue abnormality. XR/XR chest 2V IMPRESSION: Normal chest. Electronically signed by: Ti Lindo MD 09/20/2024 11:03 AM EDT Dictated By: Ti Lindo MD Signed By: <Electronically signed by Ti Lindo MD in OV> 09/20/24 1103 DD/ 1040 TD/TT: 09/20/24 1045 Director Loss Prevention: Result Song Wong MD IMG XR PROCEDURES Final Result * POCT HGB A1C (09/20/2024 10:12 AM EDT) Hemoglobin A1C 5.6 4.0 - 6.0 % QC Media Lot # [id number] Lot# Expiration Date 82,625 Blood 09/20/2024 10:1 2 AM EDT Result Song Wong MD POINT OF CARE TEST ENTER/EDIT OR DERABLES Final Result * POCT Glucose (09/20/2024 10:12 AM EDT) Glucose Blood, POC 112 60 - 200 mg/dL QC Media Lot # [id number] Lot# Expiration Date 82,625 Blood Capillary blood specimen / Unknown 09/20/2024 10:12 AM EDT Result Song Wong MD POINT OF CARE TEST ENTER/EDIT OR DERABLES Final Result * ECG 12 lead (09/20/2024 9:58 AM EDT) Narrative Name, MD Oliverio - 09/20/2024 9:58 AM EDT Normal sinus rhythm. ??Heart rate of 65. ??No ST segment elevation or depression. ??Normal EKG. Result Song Wong MD ECG ORDERABLES Final Result documented in this encounter Visit Diagnoses Diagnosis Preop examination- Primary Unspecified pre-operative examination documented in this encounter Additional Health Concerns Assessment Noted Time PHQ-9 Depression Total Score: 0 09/21/19 25 10:24 AM EDT documented as of this encounter Care Teams Boarding Mother Relationship Specialty Start Date End Date Name, MD Oliverio [address] [place] [address] PCP - General Family Medicine 07/06/18 documented as of this encounter
--- OUTSIDE RECORDS SUMMARY | 2024-09-20 12:09 | XMS_ITS | Encounter Summary ---
Author Organization [employer] Address [address] [place] [address] Care Team Providers Care Operations Architect Name Role Phone Name, Oliverio CALVIN Primary Care Provider [phone] Reason for Visit * Reason Onset Date Comments rs no show appt 07/26/2024 Encounter Details Date Type Department Care Team ([facility] st Contact Info) Description 07/26/[address] [facility] ADULT DENTAL [address] [place] [address] Sissy Cruz, DDS [address] [place], [place] [phone] rs no show appt Social History Tobacco Use Types Packs/Day Years [...] encounter Miscellaneous Notes * Telephone Encounter - Estella Laird - 07/26/2024 2:04 PM EDT Patient called in to rs no show appt on 07/25. Patient informed that no show visits have a waiting period before they can be rescheduled. Informed patient they will get a call from the office to reschedule once wiating period is up DR documented in this encounter Plan of Treatment Upcoming Encounters Date Type Department Care Team (Late st Contact Info) Description 01/02/2025 3:00 PM EDT Office Visit [facility] ADULT DENTAL [address] [place] [address] Vicki Rhodes documented as of this encounter Visit Diagnoses Not on filedocumented in this encounter Care Teams Operations Architect Relationship Specialty Start Date End Date Name, MD Oliverio [address] [place] [address] PCP - General Family Medicine 07/06/18 documented as of this encounter
--- OUTSIDE RECORDS SUMMARY | 2024-09-20 12:09 | XMS_ITS | Clinical Summary ---
Author Organization [facility] Address [address] [place] [address] Care Team Providers Care Plisse Machine Operator Helper Name Role Phone Unavailable Primary Care Provider [...]
--- OUTSIDE RECORDS SUMMARY | 2024-09-20 12:09 | XMS_ITS | Encounter Summary ---
Author Organization [employer] Address [address] [place] [address] Care Team Providers Care Botany Teacher Name Role Phone Name, Oliverio CALVIN Primary Care Provider [phone] Reason for Visit * Reason Onset Date Comments Appointment Request 06/29/2024 Encounter Details Date Type Department Care Team ([facility] Contact Info) Description 06/29/2024 Telephone [facility] MEDICINE [address] [place], [place] [phone] Name, MD Oliverio [address] [place] [address] Appointment Request Social History Tobacco Use Types [...] like a routine visit and lab work. Pit Manager advise will send a message to team. Contact pt at [phone] documented in this encounter Plan of Treatment Upcoming Encounters Date Type Department Care Team ([facility] Contact Info) Description 01/02/2025 3:00 PM EDT Office Visit [facility] ADULT DENTAL [address] [place] [address] Vicki Rhodes documented as of this encounter Visit Diagnoses Not on filedocumented in this encounter Care Teams Botany Teacher Relationship Specialty Start Date End Date Name, MD Oliverio [address] [place] [address] PCP - General Family Medicine 07/06/18 documented as of this encounter
--- OUTSIDE RECORDS SUMMARY | 2024-09-20 12:09 | XMS_ITS | Encounter Summary ---
Author Organization [employer] Address [address] [place] [address] Care Team Providers Care Powder Worker Tnt Name Role Phone Name, Oliverio CALVIN Primary Care Provider [phone] Reason for Visit * Reason Onset Date Comments Chart Prep 09/19/2024 Encounter Details Date Type Department Care Team ([facility] Contact Info) Description 09/19/2024 Telephone [facility] MEDICINE [address] [place], [place] [phone] Name, MD Oliverio [address] [place] [address] Chart Prep Social History Tobacco Use Types Packs/Day Years [...] encounter Miscellaneous Notes * Telephone Encounter - Latha Sena MA - 09/19/2024 11:42 AM EDT Chart Prep Labs: done Images: not applicable Referrals: not applicable Vaccines due: Covid and Flu Screenings: not applicable Overdue care gaps: SBIRT, PHQ-9, RYAN-7, Oral health screening, and Disability screen documented in this encounter Plan of Treatment Upcoming Encounters Date Type Department Care Team (Late st Contact Info) Description 01/02/2025 3:00 PM EDT Office Visit [facility] ADULT DENTAL [address] [place] [address] Vicki Rhodes documented as of this encounter Visit Diagnoses Not on filedocumented in this encounter Care Teams Powder Worker Tnt Relationship Specialty Start Date End Date Name, MD Oliverio [address] [place] [address] PCP - General Family Medicine 07/06/18 documented as of this encounter
--- OUTSIDE RECORDS SUMMARY | 2024-09-20 12:09 | XMS_ITS | Clinical Summary ---
Author Organization [employer] Address [address] [place] [address] Care Team Providers Care Soyfreeze Operator Name Role Phone Name, Oliverio CALVIN Primary Care Provider [phone] Allergies No known active allergies Medications 27-1 MG tablet Take 1 tablet by mouth Once per day. 30 tablet 11 07/04/19 25 026 Active omeprazole (PriLOSEC) [address] capsuleIndicati ons:Gastroesoph ageal reflux disease without esophagitis TAKE 1 CAPSULE BY MOUTH EVERY DAY 30 MINUTES TO 1 HOUR BEFORE A MEAL 90 capsule 09/19/19 25 Active cyclobenzaprine (Flexeril) 10 MG tablet Take 1 tablet (10 mg) by mouth at bedtime for 10 days. 10 tablet 10/01/19 24 025 Discontinued(Th erapy completed) omeprazole (PriLOSEC) [address] capsuleIndicati ons:Gastroesoph ageal reflux disease without esophagitis TAKE 1 CAPSULE BY MOUTH EVERY DAY 30 MINUTES TO 1 HOUR BEFORE A MEAL 90 capsule 06/27/19 25 025 Discontinued(Re order (will not trigger notification to Pharmacy)) Active Problems Problem Noted Date Diagnosed Date PCOS (polycystic ovarian syndrome) 09/20/2024 Migraine 12/14/2022 Resolved Problems Problem Noted Date Diagnosed Date Resolved Date Gastroenteritis 02/15/2024 09/20/2024 Assessment & Plan (02/15/2024 5:13 PM EDT): -likely viral gastroenteritis -no evidence of dehydration on exam -no evidence of acute abdomen -supportive care with fluids -note given for work. -ER precautions discussed Acute streptococcal pharyngitis 01/18/2024 09/20/2024 Back pain 01/18/2024 09/20/2024 Bacterial vaginosis 01/18/2024 09/21/19 COVID-19 01/18/2024 09/20/2024 Dysuria 01/18/2024 09/20/2024 Early stage of 01/18/2024 Upper respiratory infection 01/18/2024 09/20/2024 Vaginal bleeding affecting early 01/18/2024 09/20/2024 Yeast infection 01/18/2024 09/20/2024 Urinary tract infection 01/18/202409/07 Urinary tract infection without hematuria 12/14/2022 09/20/2024 Encounters Date Type Department Care Team Description 09/20/2024 9:30 AM EDT Office Visit [address] [address] Oliverio Wong MD Preop examination (Primary Dx) 09/20/2024 Travel 09/19/[address] [address] Oliverio Wong MD Chart Prep 09/18/2024 Refill [facility] [address] [place] [address] [phone] Oliverio Wong MD Gastroesophageal reflux disease without esophagitis 09/13/2024 Patient Outreach [facility] [address] [place] [address] [phone] Oliverio Wong MD Pre-visit Planning ([facility] unable to reach [facility]) 07/26/2024 Telephone [facility] [address] [place] [phone] Sissy Cruz DDS rs no show appt 07/21/[address] [address] Oliverio Wong MD Nurse Triage 07/07/2024 Orders Only [address] [address] Endy Day CNM 07/04/2024 10:00 AM EST Procedure Visit [address] [place] [address] Endy Day CNM Cervical cancer screening (Primary Dx); PCOS (polycystic ovarian syndrome); Screening for diabetes mellitus; Screening for lipid disorders; Screening examination for venereal disease; Dysuria; Procreative management 07/04/2024 Orders Only [facility] [address] [place] [phone] Endy Day CNM 07/04/2024 Travel 06/29/[address] [phone] Estela Banks [place] Appointment Request 06/29/[address] [phone] Estela Banks [place] 06/29/[address] [address] Oliverio Wong MD Appointment Request 06/27/2024 2:00 PM EST Office Visit [facility] [address] [place] [phone] Layla Curry Encounter for dental examination (Primary Dx); Dental calculus; Defective dental synagogue; Dental plaque 06/23/2024 Refill [facility] [address] [place] [phone] Aretha Castillo MD Gastroesophageal reflux disease without esophagitis 06/23/2024 Telephone [facility] [address] [place] [phone] Layla Curry from Last 3 Months Immunizations Immunization Administration Dates Next Due DTP 06/05/1996, 3,05/29/1992,03/27,02/02/1992 [...] Q2 Not on file 07/04/2024 Comments No Intention Date Recorded Wants to become (finding) 07/04 Sex and Gender Information Value Date Recorded [...] 18 09/20/2024 9:26 AM EDT Oxygen Saturation 98% 07/04/2024 9:54 AM EST Inhaled Oxygen Concentration - - Weight 85.6 kg (188 lb 12.8 oz) 09/20/2024 9:26 AM EDT Height 160 cm (5' 3 ) 09/20/2024 9:26 AM EDT Body Mass Index 33.44 09/20/2024 9:26 AM EDT Plan of Treatment Upcoming Encounters Date Type Department Care Team (Late st Contact Info) Description 01/02/2025 3:00 PM EDT Office Visit [facility] [address] [place] [address] Vicki Rhodes Health Maintenance Due Date Last Done Comments COVID-19 Vaccine ( season) 2024 Influenza Vaccine (#1) 2024 9, 01/28/2017, 04/18/2012, Additional history exists Dental Oral Exam 12/26/2024 06/27/2024, 08/03/2023 Dental Prophylaxis 12/26/2024 06/27/2024, 09/23/2023 Dental X-Ray: Bitewings 06/28/2025 06/27/19, 08/03/2023, 06/04/2023 Family Planning (PISQ) 07/04/2025 07/04/2024 SDOH Screening 07/04/2025 07/04/2024 Alcohol/Substance Use Screening 09/20/2025 09/20/2024 Depression Screening 09/20/2025 09/20/2024, 09/21/19 Tobacco Screening 09/20/2025 09/20/2024 Dental X-Ray: Full Mouth 08/03/2026 08/03/2023 DTaP/Tdap/Td Vaccines (7 - Td or Tdap) 01/28/2027 01/28/2017, 12/12/2002, 06/05/1996, Additional history exists Cervical Cancer Screening 07/04/2029 HPV/Cotest 07/04/2029 07/04/2024 Pap Smear 07/04/2029 07/04/2024 Zoster Vaccines (1 of 2) 11/02/2041 RSV [...] Completed 10/09/2021 Hepatitis C Screening Completed 10/09/2021 Meningococcal B Vaccine Aged Out No l onger eligible based on patient's age to complete this topic Pneumococcal Vaccine: Pediatrics (0 to 5 Years) [...] Routine 09/20/2024 9:58 AM EDT Preop examination LIPID PANEL, STANDARD Routine 07/04/2024 10:55 AM EST PCOS (polycystic ovarian syndrome) Screening for lipid disorders HEMOGLOBIN A1C Routine 07/04/2024 10:55 AM EST PCOS (polycystic ovarian syndrome) Screening for diabetes mellitus PROLACTIN Routine 07/04/2024 10:55 AM EST PCOS (polycystic ovarian syndrome) TSH W/REFLEX TO FT4 Routine 07/04/2024 1 0:55 AM EST PCOS (polycystic ovarian syndrome) TESTOSTERONE, TOTAL, MALES (ADULT), IA Routine 07/04/2024 10:55 AM EST PCOS (polycystic ovarian syndrome) POCT URINALYSIS DIPSTICK Routine 07/04/2024 10:30 AM EST Dysuria CHLAMYDIA/N. GONORRHOEAE AND T. VAGINALIS RNA, QUAL,TMA Routine 07/04/2024 10:22 AM EST Screening examination for venereal disease PAP SMEAR Routine 07/04/2024 10:22 AM EST Cervical cancer screening HPV DNA, LOW/HIGH RISK Routine 07/04/2024 10:22 AM EST CULTURE, URINE, ROUTINE Routine 07/04/2024 10:22 AM EST Dysuria ORAL HYGIENE INSTRUCTIONS Routine 06/27/2024 2:00 PM EST CASE PRESENTATION, DETAILED AND EXTENSIVE TREATMENT PLANNING Routine 06/27/2024 2:00 PM EST PERIODIC ORAL EVALUATION - ESTABLISHED PATIENT Routine 06/27/2024 2:00 PM EST Encounter for dental examination Dental calculus Defective dental synagogue Dental plaque BITEWINGS - 4 RADIOGRAPHIC IMAGES [...] Recently Relevant to Health Maintenance Results * XR Chest 2 Views (09/20/2024 10:40 AM EDT) Anatomical Region Laterality Modality Chest Radiographic Ava ging 09/20/2024 10:4 0 AM EDT Narrative 09/20/2024 11:06 AM EDT ?[facility] ?[address] ?[place] [address] ?XRay Report ? Signed ? Patient: Mirna Flores ?MR#: ?? [id number] ? : 1990 ?Acct:[id number] ? Age/Sex: 33 / F ?ADM Date: 09/20/24 ? Loc: HO.HHCX ? Attending Dr: Oliverio Wong MD ? Ordering Physician: Oliverio Wong MD ?? Date of Service: 09/20/24 ?? Procedure(s): XR chest 2V ?? Accession Number(s): [id number] ? cc: Oliverio Wong MD ? EXAMINATION: [...] DD/ 1040 ? TD/TT: 09/20/24 1045 ? Special Delivery Carrier: ? Procedure Note Massiel, Greyson - 09/20/2024 [facility] [address] [place] [address] XRay Report Signed Patient: Mirna Flores MMR#: [id number] : 1990Acct:[id number] Age/Sex: 33 / FADM Date: 09/20/24 Loc: HO.HHCX Attending Dr: Oliverio Wong MD Ordering Physician: Oliverio Wong MD Date of Service: 09/20/24 Procedure(s): XR chest 2V Accession Number(s): [id number] cc: Oliverio Wong MD EXAMINATION: XR CHEST [...] 09/20/24 1103 DD/ 1040 TD/TT: 09/20/24 1045 Special Delivery Carrier: Oliverio Wong MD IM XR PROCEDURES Final Result * POCT HGB A1C (09/20/2024 10:12 AM EDT) Hemoglobin A1C 5.6 4.0 - 6.0 % QC Media Lot # [id number] Lot# Expiration Date Blood 09/20/2024 10:1 2 AM EDT Oliverio Wong MD POINT OF CARE TEST ENTER/EDIT OR DERABLES Final Result * POCT Glucose (09/20/2024 10:12 AM EDT) Glucose Blood, POC 112 60 - 200 mg/dL QC Media Lot # [id number] Lot# Expiration Date Blood Capillary blood specimen / Unknown 09/20/2024 10:12 AM EDT Oliverio Wong MD POINT OF CARE TEST ENTER/EDIT OR DERABLES Final Result * ECG 12 lead (09/20/2024 9:58 AM EDT) Narrative Name, MD Oliverio - 09/20/2024 9:58 AM EDT Normal sinus rhythm. ??Heart rate of 65. ??No ST segment elevation or depression. ??Normal EKG. Oliverio Wong MD ECG ORDERABLES Final Result * TSH W/Reflex to FT4 (07/04/2024 10:55 AM EST) [facility] TSH reflex Free T4 1.35 0.32 - 4.0 uIU/mL [facility] Blood Venous blood specimen / Unknown 07/04/2024 10:55 AM EST 07/04/2024 11:35 AM EST Endy Day [facility] BLOOD ORDERABLES Estephanie l Result [facility] [address] [place] [phone] * Prolactin (07/04/2024 10:55 AM EST) Pathologist [facility] Prolactin 10.4 ng/mL [facility] Comment:Reference Range Fema les Non- 3.0-30.0 10.0-209.0 Postmenopausal 2.0-20.0THIS TEST WAS PERFORMED AT:[facility] [address] [address]OMLKSMARVIN MACKENZIE MD Blood Venous blood specimen / Unknown 07/04/2024 10:55 AM EST 07/04/2024 11:[address] [facility] ORDERABLES Estephanie l Result Performing Organization Address [facility] Co de Phone Number [facility] [address] [place] [phone] * (ABNORMAL) Testosterone, Total, males (Adult), IA (07/04/2024 10:55 AM EST) [facility] Testosterone, Total 65(A) 2 - 45 ng/dL [facility] Comment:For additional infor shari, please refer tohttp://education.PromoRepublic/faq/HgbxwFaysmkedgyafBQKIIZIXB183(This link is being provided for informational/educational purposes only.)This test was developed and its analytical performancecharacteristics have been determined by [employer] [place], [place]. It hasnot been cleared or approved by the U.S. Food and DrugAdministration. This assay has been validated pursuantto the CLIA regulations and is used for clinicalpurposes.THIS TEST WAS PERFORMED AT:[facility] [place] [address]KMJUONRVAN DSOUZA MD,PHD Blood Venous blood specimen / Unknown 07/04/2024 10:55 AM EST 07/04/2024 11:[address] [facility] Center[facility] BLOOD ORDERABLES Estephanie l Result Performing Organization Address [facility] Co de Phone Number [facility] [address] [place] [phone] * Hemoglobin A1c (07/04/2024 10:55 AM EST) Hemoglobin A1c 5.7 <6.0 % [facility] Comment:Hemoglobin A1C Refer ence Range Adults: 4.8 - 6.0 % Non diabetic: < 6.0 % Goal: < 7.0 %Additional Action Suggested: > 8.0 %Note: Hemoglobin A1c results are invalid for patients with abnormal amounts of HbF. Blood transfusions may impact the HbA1c concentration in the patient sample. Estimated Average Glucose 117 mg/dL [facility] Comment:eAG = Estimated ave rage glucose which is %A1C expressed asaverage glucose, using the formula of the B2T-VrkhsgaRzshzne Glucose study (ADAG), Diabetes Care, Vol.31,#8,Dec. 2007 Blood Venous blood specimen / Unknown 07/04/2024 10:55 AM EST 07/04/2024 11:35 AM EST us Endy Day [facility] BLOOD ORDERABLES Estephanie l Result [facility] [address] [place] [phone] * (ABNORMAL) Lipid Panel, Standard (07/04/2024 10:55 AM EST) Triglycerides 248(H) <150 mg/dL [facility] Comment:Desirable Triglyceri de: less than 150 mg/dLBorderline High Triglyceride 150-199 mg/dLHigh Triglyceride: 200-499 mg/dLVery High Triglyceride: greater than or equal to 5OO mg/dL Cholesterol 180 <200 mg/dL [facility] Comment:Desirable Cholestero l: less than 200 mg/dLBorderline High Cholesterol: 200-239 mg/dLHigh Cholesterol: greater than 239 mg/dL LDL Cholesterol Calculated 101(H) <100 mg/dL [facility] Comment:Desirable LDL: less than 100 mg/dLNear Optimal/Above Optimal LDL: 110- 129 mg/dLBorderline High LDL: 130-159 mg/dLHigh LDL: 160-189 mg/dLVery High LDL: greater than or equal to 190 mg/dL HDL Cholesterol 30(L) >40 mg/dL [facility] Comment:Desirable HDL: great er than 40 mg/dL Note: This HDL assay may give artificially low results in patients with liver disease. Blood Venous blood specimen / Unknown 07/04/2024 10:55 AM EST 07/04/2024 11:35 AM EST [facility] B[facility]OD ORDERABLES Estephanie l Result [facility] [address] [place] [phone] [phone] * (ABNORMAL) POCT urinalysis dipstick manually [...] Date Urine 07/04/2024 10:3 0 AM EST [facility] POINT OF CARE TEST ENTER/ EDIT ORDERABLES Final Result * STI testing add on (NG, CT, Trich) (07/04/2024 10:22 AM EST) Trichomonas (NAAT) NOT DETECTED [facility] Comment:REFERENCE RANGE: NOT DETECTEDFor additional information, please refer tohttp://education.PromoRepublic/faq/Trichomonastma(This link is being provided for informational/educational purposes only.)THIS TEST PERFORMED AT:[facility] [address] [phone] DIRECTOR: MARVIN MACKENZIE MD CTNG Ref Lab NOT DETECTED NOT DETECTED [facility] NG Ref Lab NOT DETECTED NOT DETECTED [facility] ThinPrep?? vial Cervix uteri structure / Unknown 07/04/2024 10:22 AM EST 07/05/2024 9:40 AM EST Narrative [facility] - 07/14/2024 1:11 PM EST Collection Date: [id number] by: SAIDA Zhou: Cervix Endy Day [facility] CYTOLOGY ORDERABLES F inal Result Performing Organization Address [facility] Co de Phone Number [facility] [address] [place] [address] [phone] * HPV DNA, Low/High Risk (07/04/2024 10:22 AM EST) HPV High Risk Negative Negative [facility] HPV Genotype 16 Negative Negative [facility] HPV Genotype 18 Negative Negative [facility] Comment:HPV testing performe d at (CLIA#[id number]), [address] [place] [address].Testing for HPV was performed using the Selene DELANEY 6800system. The presence of HPV in the female genital tract isassociated with a number of diseases, including cervicalcarcinoma. The HPV DNA high risk pool tests for HPV 31, 33,35, 39, 45, 51, 52, 56, 58, 59, 66 and 68. The testing forHPV 16 and 18 genotypes has also been performed. A positiveresult indicates detection of nucleic acid sequences fromone or more subtypes, whereas a negative result indicatessuch sequences were not detected. 07/04/2024 10:2 2 AM EST 07/05/2024 9:40 AM EST Endy Day [facility] BLOOD ORDERABLES Estephanie l Result Performing Organization Address [facility]/ZIP Co de Phone Number [facility] [address] [place] [phone] * Culture, Urine, Routine (07/04/2024 10:22 AM EST) Urine Urine specimen obtained by clean catch procedure / Unknown 07/04/2024 10:22 AM EST 07/04/2024 4:49 PM EST Comment:[facility] Narrative [facility] - 07/06/2024 9:49 AM EST Urine Culture No growth. Specimen Source: Urine clean catch Endy Day CNM LAB MICROBIOLOGY - GENERA L ORDERABLES Final Result [facility] [address] [place] [phone] [phone] * Pap Smear (07/04/2024 10:22 AM EST) Swab Cervix uteri structure / Unknown 07/04/2024 10:22 AM EST 07/05/2024 9:40 AM EST [facility] - 07/07/2024 7:59 AM EST ----- ------- Name: Mirna Flores ? Age/Sex: 33/F ? : 1990 Unit#: [id number] ?? Attend Dr: ENDY DAY CNM ?Re07/04/24 ?Status: DEP REF ? Location: .[facility] ? Disch: ? ----- ------- SPEC : [id number] ? RECD: 07/05/24 ? STATUS: ??SOUT ? REQ NUM: [id number] ? ERICKA: 07/04/24 ? SUBM DR: ENDY DAY CNM ? ENTERED: ??07/05/24 ?SP TYPE: Pap Smr ?OTHR : ? ORDERED: ??Pap Smear ? Interpretation ?? Satisfactory for evaluation. ?? Negative for intraepithelial lesion or malignancy. ?? Fungal organisms consistent with Tita species. ?? Coccobacilli consistent with shift in vaginal luc. ? HPV High Risk: ??Negative ? HPV Genotyping 16: ??Negative ?? HPV Genotyping 18: ??Negative ?Clinical Information LMP: Unknown date Previous PAP test: Unknown date/findings ? Material Received ?? ThinPrep-Cervical ----- ------- Signed (signature on file) Car LILLY Aceves ([facility]) 07/07/24 0759 ? ----- ------- ? END OF REPORT ? us Endy Day [facility] CYTOLOGY ORDERABLES F inal Result [facility] [address] [place] [phone] * HEPATITIS B SURFACE ANTIGEN* (10/09/2021 2:40 PM EDT) [facility] Hepatitis B Surface Antigen Negative Negative [facility] Hepatitis C Antibody Nonreactive Nonreactive [facility] Comment: Antibodies to HCV not detected; does not exclude early acute HCV infection. HIV AB/AG Nonreactive Nonreactive [facility] Comment: HIV-1 p24 Ag and/or [...] detection of this assay. ?? [employer] Specialist HIV Ag/Ab Combo assay result and supplemental assay results should be interpreted in conjunction with the patient's clinical presentation, history and other laboratory results. ??If the results are inconsistent with clinical evidence, additional testing is suggested to confirm the result. 10/09/2021 2:40 PM EDT us Marizol Gimenez HISTORICAL/NON ORDERABLE LABS Fi nal Result [facility] [address] from Last 3 Months or Most Recently Relevant to Health Maintenance Insurance HSN FULL [facility] D[facility] - HSN PARTIAL (MEDICAID) Care Teams Soyfreeze Operator Relationship Specialty Start Date End Date Name, MD Oliverio [address] [place] [phone] PCP - General Family Medicine 07/06/18
[2024-09-20 14:03] LABS: Appearance Urine Clear; Color Urine Yellow; Glucose Urine UA Negative (Negative); Leukocyte Esterase Urine Negative (Negative); Nitrite Urine Negative (Negative); PH 5.5 (5.0-9.0); Urine Blood Negative (Negative); Urine Ketones Negative (Negative); Urine Protein Negative (Neg-Trace)
[2024-09-20 14:10] LABS: Bacteria Urine 1+ (None Seen); Hyaline Casts Urine 0-2 /LPF (0-2); RBC Urine 0-2 /HPF (0-2); WBC Urine 0-5 /HPF (0-5)
== END 2024-09-20 11:05 | disposition home or self-care (01) ==
LOC: HO.HHCL 11:04
PROVIDERS: Visit Provider Internal Medicine Geriatric Medicine
DX: Z01.818 Encounter for other preprocedural examination (principal)
CPT/HCPCS: 81001

== ENCOUNTER 2024-09-20 11:21 | Outpatient (REF) | payer OTHER, SELFPAY | END 2024-09-20 11:22 | disposition home or self-care (01) | LOC: HO.HHCL 11:21 | PROVIDERS: Visit Provider Internal Medicine Geriatric Medicine | DX: Z13.89 Encounter for screening for other disorder (principal) ==